=== PATIENT | female | born 1970 | race Caucasian/White ===

== ENCOUNTER → 2017-01-04 | Outpatient (CLI) | payer BC ==
[~2017-01-04] MED LIST: CLX20 PO; LISI-461 PO; PRLSR20 PO
[2017-01-04 16:47] LABS: COMPLETE YES; IG% 0.3 %; LYMPH ABS # 1.14 K/uL (1.2-3.4); MEAN CELL VOLUME 98.2 fL (80-100); MEAN CORPUSCULAR HEMOGLOBIN 32.5 pg (25-34); MEAN CORPUSCULAR HGB CONC 33.1 g/dl (32-36); MEAN PLATELET VOLUME 9.6 fL (7.4-10.4); NEUT % 51.7 %; PLATELET COUNT 128 K/uL (130-400); RED BLOOD COUNT 3.26 M/uL (4.2-5.4)
[2017-01-04 16:57] LABS: ALT/SGPT 22 U/L (12-78); AST/SGOT 13 U/L (15-37); BLOOD UREA NITROGEN 9 mg/dl (7-18); BUN/CREATININE RATIO 13.5 (10-20); CALCIUM 8.9 mg/dl (8.5-10.1); CARBON DIOXIDE 27 mmol/L (21-32); CHLORIDE 109 mmol/L (98-107); CREATININE 0.67 mg/dl (0.60-1.20); GLUCOSE 92 mg/dl (70-99); POTASSIUM 3.5 mmol/L (3.5-5.1); SODIUM 140 mmol/L (136-145)
[2017-01-04 17:07] LABS: ALB/GLOB RATIO 0.9 (0.9-2); ALKALINE PHOSPHATASE 66 U/L (45-117)
== END | disposition home or self-care (01) ==
LOC: C.LABBC 14:19
PROVIDERS: ATTEND Physician Assistant Medical
DX: R19.7 Diarrhea, unspecified (principal); R53.83 Other fatigue; M25.50 Pain in unspecified joint

== ENCOUNTER → 2017-01-04 | Outpatient (CLI) | payer BC ==
[2017-01-14 15:45] LABS: O&P SOURCE OTHER-STOOL
== END | disposition home or self-care (01) ==
LOC: C.LABBFT 13:18
PROVIDERS: ATTEND Physician Assistant Medical
DX: R19.7 Diarrhea, unspecified (principal)

== ENCOUNTER 2022-04-05 11:40 | Inpatient (IN) ==
[2022-04-05] MEDS ORDERED: SODIUM CHLORIDE 0.9% 1000ML 1,000 ML IV ONE (12:29)
--- NOTE | 2022-04-05 12:40 | Emergency Department Note ---
History of Present Illness General Chief Complaint: Illness Stated Complaint: BODY ACHES, BLOODY MUCUS, CONGESTED Time Seen by Provider: 04/05/22 12:19 History of Present Illness Provider Complaint: + cough Onset (ago): 2 day(s) Duration: + constant and + progressively worsening Severity: moderate Maximum Pain Intensity: 8 Current Pain Intensity: 8 Description of mucous: + bloody Able to tolerate fluids by mouth: Yes Context: + recent travel Associated symptoms: + fever (sujective), + chills, + myalgias and + other (Hemoptysis); no shortness of breath, no abdominal pain, no nausea, no vomiting, no diarrhea or no dysuria Home Medications Medication Instructions Recorded Confirmed Type Auto Titrating CPAP #1 ea 12/11/20 07/22/21 Rx lisinopril 10 mg tablet 10 mg PO QAM #90 tabs 03/18/21 04/05/22 Rx omeprazole 20 mg tablet,delayed 20 mg PO QAM #30 tabs 01/14/22 04/05/22 Rx release ascorbic acid (vitamin C) 100 mg 0 mg PO DAILY 04/05/22 04/05/22 History tablet cholecalciferol (vitamin D3) 25 0 mcg PO DAILY 04/05/22 04/05/22 History mcg (1,000 unit) tablet escitalopram oxalate 20 mg tablet 20 mg PO DAILY 04/05/22 04/05/22 History Allergies Allergy/AdvReac Type Severity Reaction Status Date / Time No Known Allergies Allergy NONE Verified 04/05/22 15:45 Past Med/Surg History Medical History Abnormal mammogram Abnormality of left breast on screening mammography LIS positive Anemia Anxiety Arthralgia of multiple sites BMI 45.0-49.9, adult Cervicalgia Cholecystectomy planned (01/19/13) Diarrhea Fatigue GERD (gastroesophageal reflux disease) GERD without esophagitis Headache, menstrual migraine Hypertension Kidney stones Migraine Moderate obstructive sleep apnea Myalgia and myositis Rheumatoid arthritis Sleep apnea does not use cpap as ordered Thrombocytopenia Vitamin B12 deficiency Surgical History History of cholecystectomy History of esophagogastroduodenoscopy (EGD) History of surgery (benign) fatty tissue removed under left arm History of tooth extraction wisdom teeth Family History Mother Father Stroke syndrome Stroke Aunt Breast cancer Colorectal cancer Grandmother (Maternal) Ovarian cancer Denies family history of Prostate cancer Diabetes Myocardial infarction Lung cancer Hypertension Social History Smoking Status: Never smoker Second Hand Exposure: Yes (both parents smoked); Hx Alcohol Use: Yes Alcohol type: wine and hard liquor Hx Substance Use: No Preferred Language: Citizen Of [place] Communication Ability: Effective Visual Impairment: No Limitations Hearing Ability: Normal Home Care And Home Health Aides Teacher Required: No Beliefs That Will Affect Care: None marital status: Current Living Situation: Alone and Other Current Living Situation Comment: friend lives with pt current occupational status: employed 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 Feels Safe at Home: Yes Childhood Exposure to Second-Hand Smoke: Yes caffeine: Yes Dental Care, Regularly: Yes Physical Activity Frequency: 3-4 Times per Week Seatbelt Use: sometimes Sunscreen Use: Yes Assistive Devices: Glasses Review of Systems A total of 10 systems reviewed and were otherwise negative Physical Exam Vital Signs: Vital Signs - 24 hr 04/05/22 11:42 04/05/22 12:59 04/05/22 12:59 Temperature 36.6 C Temperature Source Temporal Artery Sc an Pulse Rate 118 H Pulse Rate [Apical ] 101 H Pulse Rhythm Regular Pulse Strength Normal Respiratory Rate 20 18 Respiratory Effort / Characteristics Non-Labored Sponta neous Respiratory Depth Normal Normal Respiratory Patter n Regular Blood Pressure 131/69 Blood Pressure [Le ft Arm] 146/77 H Blood Pressure Debo n 89 Blood Pressure Debo n [Left Arm] 100 Blood Pressure Pos ition [Left Arm] Lying Pulse Oximetry 93 94 Oxygen Delivery Me thod Room Air Room Air Room Air Oxygen Flow Rate Sepsis Recent Feve r Within 48 Hours No Sepsis New/Unexpla ined Change in Men [place] Status N/A Sepsis Action Take n by Nursing No Action Required 04/05/22 14:00 04/05/22 14:56 Temperature Temperature Source Pulse Rate Pulse Rate [Apical ] 98 H Pulse Rhythm Pulse Strength Respiratory Rate 21 Respiratory Effort / Characteristics Respiratory Depth Respiratory Patter n Blood Pressure Blood Pressure [Le ft Arm] 154/90 H Blood Pressure Debo n Blood Pressure Debo n [Left Arm] 111 Blood Pressure Pos ition [Left Arm] Pulse Oximetry 87 L 97 Oxygen Delivery Me thod Room Air Nasal Cannula Oxygen Flow Rate 2 Sepsis Recent Feve r Within 48 Hours Sepsis New/Unexpla ined Change in Men [place] Status Sepsis Action Take n by Nursing Physical Exam: Physical Exam GENERAL: Patient having hemoptysis in the room. HENT: Exam performed. -Head: Normocephalic and atraumatic. -Right Ear: External ear normal. No mastoid tenderness. -Left Ear: External ear normal. No mastoid tenderness. -Mouth/Throat: The oropharynx is clear and moist. No trismus in the jaw. No dental abscesses or uvula swelling. No oropharyngeal exudate or tonsillar abscesses. EYES: Conjunctivae and EOM are normal. Pupils are equal, round, and reactive to light. Right eye exhibits no discharge. Left eye exhibits no discharge. No scleral icterus. NECK: Normal range of motion. Neck supple. No JVD present. No spinous process tenderness present. No carotid bruit present. No rigidity. No tracheal deviation and normal range of motion present. No Brudzinski's sign and no Kernig's sign noted. CV: Tachycardic rate, regular rhythm, normal heart sounds and intact distal pulses. There is no peripheral edema. Palpable radial pulses bue. PULM/CHEST: Rhonchi bilaterally -Chest Wall: She exhibits no tenderness. ABD: The abdomen is soft. Bowel sounds are normal. She has no distension. No mass is present. There is no tenderness. There is no rebound, no guarding, no Rivera's sign and no tenderness at McBurney's point. Rovsig negative MUSC/SKEL: Normal range of motion. There is no peripheral edema, tenderness or deformity. LYMPH: No cervical adenopathy. NEURO: She is alert and oriented to person, place, and time. She has normal strength. No cranial nerve deficit or sensory deficit. Coordination and gait normal. GCS eye subscore is 4. GCS verbal subscore is 5. GCS motor subscore is 6. Cerebellar tests wnl. SKIN: Skin is warm and dry. She is not diaphoretic. PSYCH: She has a normal mood and affect. Behavior is normal. Judgment and thought content normal. Course Course 1219: The patient was evaluated in room A2. A complete history and physical exam was performed Cardiac monitoring: An order was placed for continuous cardiac monitoring. The monitor shows a rate of 120 with sinus tachycardia rhythm 1400: Patient became hypoxic on room air 2 L supplemental oxygen saturation applied to the patient which improved her oxygen saturation. 1500: Vital signs stable. Labs show leukocytosis of 14. Chest x-ray shows left lower lobe infiltrate. Given this and the patient's hypoxia the patient be treated for pneumonia with azithromycin and Rocephin IV. CTs are pending. 1630: Vital signs stable on supplemental oxygen via nasal cannula. CTs show left-sided infiltrate. Patient be admitted to [facility] team Dr. Vasquez Administered Medications Discontinued Medications Sodium Chloride (Nss 1000ml) 1,000 mls @ 999 mls/hr IV .Q1H1M ONE Stop: 04/05/22 13:29 Last Infusion: 04/05/22 14:31 Dose: 0 mls/hr Documented By: Admin: 04/05/22 12:53 Dose: 999 mls/hr Documented By: PATRICE Azithromycin 500 mg/ Dextrose 255 mls @ 125 mls/hr IV ONE ONE Stop: 04/05/22 16:59 Last Infusion: 04/05/22 17:30 Dose: 0 mls/hr Documented By: Admin: 04/05/22 15:27 Dose: 125 mls/hr Documented By: ERROL Ceftriaxone Sodium (Rocephin) 1,000 mg in 50 mls @ 100 mls/hr IV NOW STA Stop: 04/05/22 15:26 Last Infusion: 04/05/22 15:54 Dose: 0 mls/hr Documented By: RSLaura Admin: 04/05/22 15:27 Dose: 100 mls/hr Documented By: ERROL Ioversol (Optiray 320 500ml) 109 ml IV ONCE ONE Stop: 04/05/22 14:01 Last Admin: 04/05/22 13:53 Dose: 109 ml Documented By: ELISHA Ondansetron HCl (Ondansetron Inj 2 Mg/Ml 2 Ml Vial) 4 mg IV NOW STA Stop: 04/05/22 15:42 Last Admin: 04/05/22 15:45 Dose: 4 mg Documented By: NAMRATA Medical Decision Making Laboratory Data Result diagrams: 04/05/22 12:50 04/05/22 12:50 Lab Results 04/05/22 04/05/22 04/05/22 Range/Units 11:45 12:50 12:50 WBC 14.46 H (4.8-10.8) K/ul RBC 2.96 L (3.93-5.22) M/uL Hgb 9.1 L (12.0-16.0) g/dl Hct 27.9 L (34.1-44.9) % MCV 94.3 (80.0-100.0) fL MCH 30.7 (25.0-34.0) pg MCHC 32.6 (32.0-36.0) g/dL RDW Std Deviation 57.0 H (36.4-46.3) fL RDW Coeff of Kota 16.4 H (11.5-14.5) % Plt Count 70 L (130-400) K/uL MPV 10.1 (9.4-12.3) fL Immature Gran % (Auto) 5.6 % Neut % (Auto) 55.5 % Lymph % (Auto) 9.8 % Tw[place]gs % (Auto) 28.6 % Eos % (Auto) 0.1 % Baso % (Auto) 0.4 % Neut # (Auto) 8.03 H (1.4-6.5) K/uL Lymph # (Auto) 1.41 (1.2-3.4) K/uL [place]gs # (Auto) 4.13 H (0.24-0.82) K/uL Eos # (Auto) 0.02 (0-0.50) K/uL Baso # (Auto) 0.06 (0-0.2) K/uL Immature Gran # (Auto) 0.81 H (0.00-0.02) K/uL Absolute Nucleated RBC 0.06 H (0-0) K/uL Nucleated RBC % (auto) 0.4 % Polychromasia 1+ Tear Drop Cells 1+ PT 12.0 (9.0-12.0) Seconds INR 1.1 (0.9-1.1) APTT 34.5 H (21.0-31.0) Seconds PTT Ratio 1.3 Sodium (136-145) mmol/L Potassium (3.5-5.1) mmol/L Chloride (98-107) mmol/L Carbon Dioxide (21-32) mmol/L Anion Gap (3-11) BUN (6-23) mg/dl Creatinine (0.6-1.2) mg/dl Est Cr Clr Drug Dosing ml/min Est GFR ( Amer) ml/min Est GFR (Non-Af Amer) ml/min BUN/Creatinine Ratio (10-20) Glucose (70-99(Fasting)) mg/dl Calcium (8.5-10.1) mg/dl Total Bilirubin (0.2-1.0) mg/dl Direct Bilirubin (0-0.2) mg/dl AST (13-39) U/L ALT (7-52) U/L Alkaline Phosphatase (34-104) U/L Total Protein (6.0-8.3) gm/dl Albumin (3.4-5.0) gm/dl Lipase (11-82) U/L SARS-CoV-2 (PCR) NEGATIVE (Negative) Influenza Type A (PCR) Negative (Neg) Influenza Type B (PCR) Negative (Neg) RSV (RT-PCR) Negative (Neg) 04/05/22 Range/Units 12:50 WBC (4.8-10.8) K/ul RBC (3.93-5.22) M/uL Hgb (12.0-16.0) g/dl Hct (34.1-44.9) % MCV (80.0-100.0) fL MCH (25.0-34.0) pg MCHC (32.0-36.0) g/dL RDW Std Deviation (36.4-46.3) fL RDW Coeff of Kota (11.5-14.5) % Plt Count (130-400) K/uL MPV (9.4-12.3) fL Immature Gran % (Auto) % Neut % (Auto) % Lymph % (Auto) % Tw[place]gs % (Auto) % Eos % (Auto) % Baso % (Auto) % Neut # (Auto) (1.4-6.5) K/uL Lymph # (Auto) (1.2-3.4) K/uL [place]gs # (Auto) (0.24-0.82) K/uL Eos # (Auto) (0-0.50) K/uL Baso # (Auto) (0-0.2) K/uL Immature Gran # (Auto) (0.00-0.02) K/uL Absolute Nucleated RBC (0-0) K/uL Nucleated RBC % (auto) % Polychromasia Tear Drop Cells PT (9.0-12.0) Seconds INR (0.9-1.1) APTT (21.0-31.0) Seconds PTT Ratio Sodium 135 L (136-145) mmol/L Potassium 3.5 (3.5-5.1) mmol/L Chloride 100 (98-107) mmol/L Carbon Dioxide 27 (21-32) mmol/L Anion Gap 8 (3-11) BUN 10 (6-23) mg/dl Creatinine 0.64 (0.6-1.2) mg/dl Est Cr Clr Drug Dosing 132.4 ml/min Est GFR ( Amer) 118.9 ml/min Est GFR (Non-Af Amer) 102.6 ml/min BUN/Creatinine Ratio 15.6 (10-20) Glucose 128 H (70-99(Fasting)) mg/dl Calcium 9.5 (8.5-10.1) mg/dl Total Bilirubin 0.9 (0.2-1.0) mg/dl Direct Bilirubin 0.2 (0-0.2) mg/dl AST 23 (13-39) U/L ALT 26 (7-52) U/L Alkaline Phosphatase 74 (34-104) U/L Total Protein 8.1 (6.0-8.3) gm/dl Albumin 4.1 (3.4-5.0) gm/dl Lipase 16 (11-82) U/L SARS-CoV-2 (PCR) (Negative) Influenza Type A (PCR) (Neg) Influenza Type B (PCR) (Neg) RSV (RT-PCR) (Neg) Imaging Data Radiologist's Impression: Chest CTA 04/05/22 12:30 CT angio chest PE protocol CT DOSE: 2544.09 mGy.cm HISTORY: 52 years-old Female with hemoptysis recent travel ro PE. Acute shortness of breath with recent travel TECHNIQUE: Multiple CTA images of the chest were obtained after the intravenous administration of 109 ml Optiray. Coronal and sagittal MIPS were obtained from the axial data set and were submitted for review. All measurements were obtained according to NASCET criteria. A dose lowering technique was utilized adhering to the principles of ALARA. COMPARISON: CT abdomen and pelvis of same day FINDINGS: CTA: The heart is upper limits of normal in size. No pericardial effusion. Unremarkable thoracic aorta. The segmental and subsegmental pulmonary tree all branches are not well evaluated secondary to contrast bolus timing and respiratory motion artifact. No central pulmonary emboli are identified. CT CHEST: 1.1 cm hypodense left-sided thyroid nodule. 1.1 cm AP window lymph node. Mildly enlarged paratracheal, subcarinal and hilar lymph nodes measure up to 1.0 cm. No pneumothorax, pleural effusion or overt pulmonary edema. Dense airspace consolidation of the basal left lower lobe with air bronchograms. Additional patchy consolidative opacities in the superior segment left lower lobe. 4 mm fi ssural nodule of the lingula on image 116 is likely benign. Subsegmental right basilar atelectasis. Central airways appear patent. Hepatosplenomegaly. No acute process of the imaged upper abdomen. Hepatic steatosis. Unremarkable soft tissues. No acute fracture. IMPRESSION: 1. No central pulmonary emboli identified. 2. Airspace opacities within the left lower lobe are suggestive of pneumonia. 3. Mild mediastinal and hilar lymphadenopathy, likely reactive. 4. Please refer to the CT abdomen and pelvis study of same day for additional findings. ACT 112: Negative or not required by law. The above report was generated using voice recognition software. It may contain grammatical, syntax or spelling errors. Electronically signed by: Delmer Arnold M.D. 04/05/2022 3:00 PM Chest X-Ray 04/05/22 12:30 XR chest 1V portable CLINICAL HISTORY: Cough. Hemoptysis. COMPARISON STUDY: Chest radiograph September 17, 2014. FINDINGS: No pneumothorax or pleural effusion is present. There is no evidence for pulmonary edema. Cardiomediastinal silhouette is stable. There is suspected left lower lobe airspace opacity. IMPRESSION: Suspected left lower lobe airspace opacity. This may reflect pneumonia or atelectasis. Radiographic follow-up to ensure resolution is recommended. ACT 112: Negative or not required by law. Electronically signed by: Haldey Salcido M.D. 04/05/2022 1:50 PM Abdomen/Pelvis CT 04/05/22 13:[address] WITH IV CONTRAST CT DOSE: HISTORY: nausea fever TECHNIQUE: Multiaxial CT images of the abdomen and pelvis were performed following the use of intravenous contrast. A dose lowering technique was utilized adhering to the principles of ALARA. COMPARISON STUDY: Abdomen and pelvis CT 06/11/2021. FINDINGS: Left lower lobe consolidation with air bronchograms. This likely represents a pneumonia. There is a 3 mm subpleural nodule within the left upper lobe on image 21. No pneumoperitoneum. No pneumatosis. No fractures within the visualized osseous structures. Cholecystectomy. Hepatic steatosis. The 2.1 cm hypodense lesion within the caudate lobe, unchanged. There are few additional scattered hypodense lesions which are also stable. These favor cysts. The main portal vein is patent. Normal pancreas and adrenal glands. The kidneys enhance normally. No hydronephrosis. The bladder is decompressed. The spleen is mildly enlarged measuring 15 cm in length. No retroperitoneal lymphadenopathy. Normal caliber abdominal aorta. No pelvic free fluid. The bladder is decompressed. Lobular appearance to the uterine fundus, unchanged. This is consistent with small fibroids. No bowel wall thickening or obstruction. Submucosal fat deposition within the proximal colon, unchanged. Normal appendix. Subtle 2 cm hypodense lesion within the spleen on image 144. This is indeterminate but statistically represents a benign lesion. This was likely present on the prior studies. IMPRESSION: 1. Left lower lobe consolidation likely representing a pneumonia. This is better appreciated on the same day chest CT. 2. No bowel wall thickening or obstruction. 3. Normal appendix. 4. Cholecystectomy. 5. Hepatic steatosis. 6. Splenomegaly measuring 15 cm in length. ACT 112: Negative or not required by law. Electronically signed by: Billy Paige M.D. 04/05/2022 3:05 PM ECG Data Indication: SOB/dyspnea Rate (beats per minute): 104 Rhythm: normal sinus Findings: no ST depression, no ST elevation or no prolonged QT MDM Narrative 1219: The patient was evaluated in room A2. A complete history and physical exam was performed Cardiac monitoring: An order was placed for continuous cardiac monitoring. The monitor shows a rate of 120 with sinus tachycardia rhythm 1400: Patient became hypoxic on room air 2 L supplemental oxygen saturation applied to the patient which improved her oxygen saturation. 1500: Vital signs stable. Labs show leukocytosis of 14. Chest x-ray shows left lower lobe infiltrate. Given this and the patient's hypoxia the patient be treated for pneumonia with azithromycin and Rocephin IV. CTs are pending. 1630: Vital signs stable on supplemental oxygen via nasal cannula. CTs show left-sided infiltrate. Patient be admitted to the [facility]ist team Dr. Vasquez Impression & Plan Hypoxia, Pneumonia Critical Care Time Critical Care Time: Yes Total Critical Care Time: 52 I have personally spent greater than 52 minutes of critical care time in the direct management of this patient. This includes bedside care, interpretation of diagnostic studies, and testing, discussion with consultants, patient, and family members, and other required patient management activities. This 52 minut es is in excess of all separately billable procedures. Discharge Plan Visit Data Chief Complaint: Illness Stated Complaint: BODY ACHES, BLOODY MUCUS, CONGESTED ED Provider: Johnny Nash Discharge Problem: Hypoxia, Pneumonia Patient Disposition: Admitted As Inpatient Discharge Instructions Interventions: ED Discharge Assessment Last Done: 04/05/22 17:31
[2022-04-05 12:50] LABS: Influenza A virus by PCR Negative (Neg); Influenza B virus by PCR Negative (Neg); RSV by PCR Negative (Neg); SARS CoV2 RNA(COVID-19) Ceph NEGATIVE (Negative)
[2022-04-05 13:15] LABS: Hematocrit (blood only) 27.9 % (34.1-44.9); Hemoglobin 9.1 g/dl (12.0-16.0); Mean Corpuscular Hemoglobin 30.7 pg (25.0-34.0); Mean Corpuscular Hgb Conc 32.6 g/dL (32.0-36.0); Mean Corpuscular Volume 94.3 fL (80.0-100.0); Mean Platelet Volume 10.1 fL (9.4-12.3); Nucleated RBC # (auto) 0.06 K/uL (0-0); Nucleated RBC % (auto) 0.4 %; Platelet Count 70 K/uL (130-400); RDW Coefficient of Variation 16.4 % (11.5-14.5); Red Blood Count 2.96 M/uL (3.93-5.22); White Blood Count 14.46 K/ul (4.8-10.8)
[2022-04-05 13:28] LABS: INR 1.1 (0.9-1.1); Partial Thromboplastin Ratio 1.3; Partial Thromboplastin Time 34.5 Seconds (21.0-31.0)
[2022-04-05 13:35] LABS: Basophils # (auto) 0.06 K/uL (0-0.2); Basophils % (auto) 0.4 %; Eosinophils # (auto) 0.02 K/uL (0-0.50); Eosinophils % (auto) 0.1 %; Immature Granulocytes # (auto) 0.81 K/uL (0.00-0.02); Immature Granulocytes % (auto) 5.6 %; Lymphocytes # (auto) 1.41 K/uL (1.2-3.4); Lymphocytes % (auto) 9.8 %; Monocytes # (auto) 4.13 K/uL (0.24-0.82); Monocytes % (auto) 28.6 %; Neutrophils # (auto) 8.03 K/uL (1.4-6.5); Neutrophils % (auto) 55.5 %; Polychromasia 1+; Tear Drop Cells 1+
[2022-04-05 13:37] LABS: Albumin Level 4.1 gm/dl (3.4-5.0); BUN Creatinine Ratio 15.6 (10-20); Bilirubin Direct 0.2 mg/dl (0-0.2); Bilirubin,Total 0.9 mg/dl (0.2-1.0); Calcium 9.5 mg/dl (8.5-10.1); Creatinine Clr Calc Pharmacy 132.4 ml/min; Est GFR (African American) 118.9 ml/min; Est GFR (Non-African American) 102.6 ml/min; Potassium 3.5 mmol/L (3.5-5.1); Total Protein 8.1 gm/dl (6.0-8.3)
--- NOTE | 2022-04-05 13:51 | XRay Report ---
XR chest 1V portable CLINICAL HISTORY: Cough. Hemoptysis. COMPARISON STUDY: Chest radiograph September 17, 2014. FINDINGS: No pneumothorax or pleural effusion is present. There is no evidence for pulmonary edema. C ardiomediastinal silhouette is stable. There is suspected left lower lobe airspace opacity. IMPRESSION: Suspected left lower lobe airspace opacity. This may reflect pneumonia or atelectasis. R adiographic follow-up to ensure resolution is recommended. ACT 112: Negative or not required by law. Electronically signed by: Hadley Salcido M.D. 04/05/2022 1:50 PM
[2022-04-05] MEDS ORDERED: OPTIRAY 320 500ml IV ONE (14:00)
--- NOTE | 2022-04-05 14:15 | Electrocardiogram Report ---
Test Reason : Blood Pressure : / mmHG Vent. Rate : 104 BPM Atrial Rate : 104 BPM P-R Int : 160 ms QRS Dur : 092 ms QT Int : 348 ms P-R-T Axes : 049 018 063 degrees QTc Int : 457 ms Poor data quality, interpretation may be adversely affected Sinus tachycardia Poor R wave progression, consider anterior VA vs. lead placement vs. LVH Abnormal ECG No previous ECGs available Confirmed by Rod Felipe ([id number]) on 04/05/2022 2:15:00 PM Referred By: REFERRED SELF Confirmed By:Steve Felipe
[2022-04-05] MEDS ORDERED: cefTRIAXone SODIUM 1,000 MG/50 ML BAG IV STA (14:57)
[2022-04-05] MEDS ORDERED: AZITHROMYCIN 500 MG in DEXTROSE 5% 250 ML IV ONE (14:57)
--- NOTE | 2022-04-05 15:01 | CT Scan Report ---
CT angio chest PE protocol CT DOSE: 2544.09 mGy.cm HISTORY: 52 years-old Female with hemoptysis recent travel ro PE. Acute shortness of breath with re cent travel TECHNIQUE: Multiple CTA images of the chest were obtained after the intravenous administration of 109 ml Optiray. Coronal and sagittal MIPS were obtained from the axial data set and were submitted for review. All measurements were obtained according to NASCET criteria. A dose lowering technique was u tilized adhering to the principles of ALARA. COMPARISON: CT abdomen and pelvis of same day FINDINGS: CTA: The heart is upper limits of normal in size. No pericardial effusion. Unremarkable thoracic aorta. Th e segmental and subsegmental pulmonary tree all branches are not well evaluated secondary to contrast bolus timing and respiratory motion artifact. No central pulmonary emboli are identified. CT CHEST: 1.1 cm hypodense left-sided thyroid nodule. 1.1 cm AP window lymph node. Mildly enlarged paratracheal , subcarinal and hilar lymph nodes measure up to 1.0 cm. No pneumothorax, pleural effusion or overt pulmonary edema. Dense airspace consolidation of the basal left lower lobe with air bronchograms. Additional patchy consolidative opacities in the superior seg ment left lower lobe. 4 mm fissural nodule of the lingula on image 116 is likely benign. Subsegmental right basilar atelectasis. Central airways appear patent. Hepatosplenomegaly. No acute process of the imaged upper abdomen. Hepatic steatosis. Unremarkable sof t tissues. No acute fracture. IMPRESSION: 1. No central pulmonary emboli identified. 2. Airspace opacities within the left lower lobe are suggestive of pneumonia. 3. Mild mediastinal and hilar lymphadenopathy, likely reactive. 4. Please refer to the CT abdomen and pelvis study of same day for additional findings. ACT 112: Negative or not required by law. The above report was generated using voice recognition software. It may contain grammatical, syntax o r spelling errors. Electronically signed by: Delmer Arnold M.D. 04/05/2022 3:00 PM
--- NOTE | 2022-04-05 15:08 | CT Scan Report ---
ABDOMEN AND PELVIS CT WITH IV CONTRAST CT DOSE: HISTORY: nausea fever TECHNIQUE: Multiaxial CT images of the abdomen and pelvis were performed following the use of intrave nous contrast. A dose lowering technique was utilized adhering to the principles of ALARA. COMPARISON STUDY: Abdomen and pelvis CT 06/11/2021. FINDINGS: Left lower lobe consolidation with air bronchograms. This likely represents a pneumonia. Th ere is a 3 mm subpleural nodule within the left upper lobe on image 21. No pneumoperitoneum. No pneum atosis. No fractures within the visualized osseous structures. Cholecystectomy. Hepatic steatosis. Th e 2.1 cm hypodense lesion within the caudate lobe, unchanged. There are few additional scattered hypo dense lesions which are also stable. These favor cysts. The main portal vein is patent. Normal pancre as and adrenal glands. The kidneys enhance normally. No hydronephrosis. The bladder is decompressed. The spleen is mildly enlarged measuring 15 cm in length. No retroperitoneal lymphadenopathy. Normal c aliber abdominal aorta. No pelvic free fluid. The bladder is decompressed. Lobular appearance to the uterine fundus, unchanged. This is consistent with small fibroids. No bowel wall thickening or obstru ction. Submucosal fat deposition within the proximal colon, unchanged. Normal appendix. Subtle 2 cm h ypodense lesion within the spleen on image 144. This is indeterminate but statistically represents a benign lesion. This was likely present on the prior studies. IMPRESSION: 1. Left lower lobe consolidation likely representing a pneumonia. This is better appreciated on the chest CT. 2. No bowel wall thickening or obstruction. 3. Normal appendix. 4. Cholecystectomy. 5. Hepatic steatosis. 6. Splenomegaly measuring 15 cm in length. ACT 112: Negative or not required by law. Electronically signed by: Billy Paige M.D. 04/05/2022 3:05 PM
[2022-04-05] MEDS ORDERED: ONDANSETRON INJ 2 MG/ML 2 ML VIAL IV STA (15:41)
--- NOTE | 2022-04-05 15:53 | History & Physical Report ---
Date of Service April 05, 2022 Assessment & Plan (1) CAP (community acquired pneumonia): Plan: 52-year-old female with history of myelodysplastic syndrome who presents with several days of fever, aches, and cough who after 2 days of aggressive coughing had an episode of hemoptysis. Found to have lobar pneumonia on x-ray. CAP CTA- No pulmonary emboli. Left lower lobe opacities consistent with lobar pneumonia. Lymphadenopathy likely reactive. With leukocytosis, fevers, chills approximately 4 days COVID/flu/RSV negative Initially treated with azithromycin/Rocephin We will continue treatment with Rocephin for Lobar pneumonia Patient with a history of MDS as below, is not currently neutropenic and has not needed Neupogen in the past Sputum pending Breathing on 2 L nasal cannula, adequate oxygen saturations. Guaifenesin with codeine as needed Myelodysplasia With 3 prior bone marrow biopsies last in 2020 Hemoglobin adequate at admission, 9.2. No indication for transfusion at this time Trend hemoglobin Platelets 70 K, no indication for transfusion at this time Patient is not neutropenic. WBC 14 on admission GERD Continue PPI Hypertension Continue lisinopril Anxiety/depression Continue Lexapro DVT prophylaxis: SCDs Diet: Regular Disposition: Medical/surgical CODE STATUS: Full code (2) Severe obstructive sleep apnea: (3) Myelodysplasia (myelodysplastic syndrome): (4) GERD without esophagitis: History of Present Illness Primary Care Provider: Jimmy Medina MD Karen is a 52-year-old female with a past medical history of hypertension, hyperglycemia, migraines, anemia, kidney stones, GERD, sleep apnea who presents with 3 days of persistent cough and sore throat and an episode of bloody mucus production/hemoptysis not on blood thinner 4 days of cough and body aches. Started coughing up bloody mucous yesterdah evening and this morning. Sputum thick and redditsh. Still having fevers, chills, and body aches. Aches seem to be the worst, eyes hurt in the back and had a headache worsened by cough. Arms and legs 'ache and are just miserable.' Haven't felt like this since the flu 10 years ago. 1x nausea after abx, otherwise denies nausea, vomiting, diarrhea, or constipation. No abdominal pain Endorses hx of HTN, GERD, and recently dx with myelodysplastic syndrome with pancytopenia dx by Dr. Hyman. Pending followup with [facility] and has had low counts for years which dropped suddenly. 3x bone marrow biopsys stable with no leukemia at last biopsy Mar 2021. Takes an injection every 2 weeks for hgb, denies injections for WBC boosting. Has not needed a blood transfusion before. Endorses NIKHIL. Denies COPD No hx of bleeding/clotting problems. No heart attacks. No fhx of bleeding/heart attacks/CVA. Mother did have lymphoma NHL. Medical History: Reviewed Medications: Reviewed Surgical History: Reviewed Allergies: Reviewed Social History: No tobacco or alcohol use. Code Status: Surrogate decision maker in an emergency would be Leticia her sister. Full Code. Allergies Allergy/AdvReac Type Severity Reaction Status Date / Time No Known Allergies Allergy NONE Verified 04/05/22 15:45 Home Medications Medication Instructions Recorded Confirmed Type Auto Titrating CPAP #1 ea 12/11/20 07/22/21 Rx lisinopril 10 mg tablet 10 mg PO QAM #90 tabs 03/18/21 04/05/22 Rx omeprazole 20 mg tablet,delayed 20 mg PO QAM #30 tabs 01/14/22 04/05/22 Rx release ascorbic acid (vitamin C) 100 mg 0 mg PO DAILY 04/05/22 04/05/22 History tablet cholecalciferol (vitamin D3) 25 0 mcg PO DAILY 04/05/22 04/05/22 History mcg (1,000 unit) tablet escitalopram oxalate 20 mg tablet 20 mg PO DAILY 04/05/22 04/05/22 History Past Med/Surg History Medical History Abnormal mammogram Abnormality of left breast on screening mammography LIS positive Anemia Anxiety Arthralgia of multiple sites BMI 45.0-49.9, adult Cervicalgia Cholecystectomy planned (01/19/13) Diarrhea Fatigue GERD (gastroesophageal reflux disease) GERD without esophagitis Headache, menstrual migraine Hypertension Kidney stones Migraine Moderate obstructive sleep apnea Myalgia and myositis Rheumatoid arthritis Sleep apnea does not use cpap as ordered Thrombocytopenia Vitamin B12 deficiency Surgical History History of cholecystectomy History of esophagogastroduodenoscopy (EGD) History of surgery (benign) fatty tissue removed under left arm History of tooth extraction wisdom teeth Family History Mother Father Stroke syndrome Stroke Aunt Breast cancer Colorectal cancer Grandmother (Maternal) Ovarian cancer Denies family history of Prostate cancer Diabetes Myocardial infarction Lung cancer Hypertension Social History Smoking Status: Never smoker Second Hand Exposure: Yes (both parents smoked); Hx Alcohol Use: Yes Alcohol type: wine and hard liquor Hx Substance Use: No Preferred Language: [place] Communication Ability: Effective Visual Impairment: No Limitations Hearing Ability: Normal Range Ecologist Required: No Beliefs That Will Affect Care: None marital status: Current Living Situation: Alone and Other Current Living Situation Comment: friend lives with pt current occupational status: employed 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 NAD. Cooperative. HEENT: Atraumatic, normocephalic. Pulm: Coarse, no wheezes. No rales. Cardiac: Regular, tachycardic, -mrg. Radial pulses intact and symmetrical. Abdominal: Nontender, nondistended, soft. BS present. Extremities: Moves all extremities equally. Warm and dry. Results & Data Results & Data ([facility]) Vital Signs (Past 12 Hours) Vital Signs Temp Pulse Pulse Resp BP BP Pulse Ox 04/05/22 14:56 97 04/05/22 14:00 98 H 21 154/90 H 87 L 04/05/22 12:59 101 H 18 146/77 H 94 04/05/22 12:59 93 04/05/22 11:42 36.6 C 118 H 20 131/69 O2 Del Method O2 Flow Rate 04/05/22 14:56 Nasal Cannula 2 04/05/22 14:00 Room Air 04/05/22 12:59 Room Air 04/05/22 12:59 Room Air 04/05/22 11:42 Room Air PG Care Time/CCT Total # of Minutes Spent Total Time Spent with Patient: Total time spent is greater than 50% in coordination of care (as documented) at patient's floor/unit and/or counseling patient: Coding Level of Care Code 40264 Initial Inpt Care Lvl 2 Diagnoses CAP (community acquired pneumonia) J18.9 Severe obstructive sleep apnea G47.33 Myelodysplasia (myelodysplastic syndrome) D46.9 GERD without esophagitis K21.9
[2022-04-05] MEDS ORDERED: POLYETHYLENE (MIRALAX) 17 GM PACK PO PRN (17:32)
[2022-04-05] MEDS ORDERED: ONDANSETRON INJ 2 MG/ML 2 ML VIAL IV PRN (17:32)
[2022-04-05] MEDS: ACETAMINOPHEN 325 MG TAB PO PRN (21:22)
[2022-04-06 07:15] LABS: Hematocrit (blood only) 26.2 % (34.1-44.9); Hemoglobin 8.2 g/dl (12.0-16.0); Mean Corpuscular Hemoglobin 30.7 pg (25.0-34.0); Mean Corpuscular Hgb Conc 31.3 g/dL (32.0-36.0); Mean Corpuscular Volume 98.1 fL (80.0-100.0); Mean Platelet Volume 12.2 fL (9.4-12.3); Nucleated RBC # (auto) 0.05 K/uL (0-0); Nucleated RBC % (auto) 0.6 %; Platelet Count 65 K/uL (130-400); RDW Coefficient of Variation 16.5 % (11.5-14.5); RDW Standard Deviation 58.4 fL (36.4-46.3); Red Blood Count 2.67 M/uL (3.93-5.22); White Blood Count 8.97 K/ul (4.8-10.8)
[2022-04-06 07:38] LABS: Basophils # (auto) 0.04 K/uL (0-0.2); Basophils % (auto) 0.4 %; Immature Granulocytes # (auto) 0.63 K/uL (0.00-0.02); Lymphocytes # (auto) 1.43 K/uL (1.2-3.4); Lymphocytes % (auto) 15.9 %; Monocytes # (auto) 1.67 K/uL (0.24-0.82); Monocytes % (auto) 18.6 %; Neutrophils % (auto) 58.1 %; Polychromasia 1+; Tear Drop Cells 1+
[2022-04-06 07:39] LABS: BUN Creatinine Ratio 20.7 (10-20); Calcium 9.2 mg/dl (8.5-10.1); Creatinine Clr Calc Pharmacy 145.8 ml/min; Est GFR (African American) 122.8 ml/min; Potassium 3.8 mmol/L (3.5-5.1)
[2022-04-06] MEDS: lisinopril 10 MG TAB PO SCH (07:53)
[2022-04-06] MEDS: ESCITALOPRAM OXALATE 20 MG TAB PO SCH (07:53)
[2022-04-06] MEDS: PANTOprazole 40 MG TAB PO SCH (07:54)
[2022-04-06] MEDS: ACETAMINOPHEN 325 MG TAB PO PRN ×2 (08:08→14:34)
[2022-04-06] MEDS: AMPICILLIN/SULBACTAM SOD 3,000 MG in 0.9 % SODIUM CHLORIDE 100 ML IV SCH ×3 (08:45→20:27)
[2022-04-06] MEDS: AZITHROMYCIN 250 MG TAB PO SCH (08:46)
[2022-04-06] MEDS ORDERED: cefTRIAXone SODIUM 2,000 MG in DEXTROSE 5% 50 ML IV SCH (09:00)
--- NOTE | 2022-04-06 17:36 | Hospitalist Progress Note ---
Date of Service April 06, 2022 Assessment & Plan (1) CAP (community acquired pneumonia): Plan: 52-year-old female with history of myelodysplastic syndrome who presents with several days of fever, aches, and cough who after 2 days of aggressive coughing had an episode of hemoptysis. Found to have lobar pneumonia on x-ray. CTA- No pulmonary emboli. Left lower lobe opacities consistent with lobar pneumonia. Lymphadenopathy likely reactive. With leukocytosis, fevers, chills approximately 4 days COVID/flu/RSV negative Initially treated with azithromycin/Rocephin Treatment switched to Unasyn/azithromycin with plan to switch to Augmentin for full treatment course on discharge Sputum pending collection Incentive spirometer and flutter valve, 2 step in AM as can likely be discharged tomorrow with or without oxygen (2) Hypoxia: Plan: Aim O2 sats > 90% 2 step in AM to see if she requires oxygen on discharge (3) Severe obstructive sleep apnea: Plan: CPAP HS - either patient to use her own or hospital one ordered (4) Myelodysplasia (myelodysplastic syndrome): Plan: Discussed with Dr Hyman and recommended giving her usual Procrit injection while she is here. Increase her usual dose to 60,000 units due to Hgb 8.2 on AM labs. (5) GERD without esophagitis: Plan: Continue pantoprazole 40mg PO daily (6) Anxiety: Plan: Continue Lexapro (7) Hypertension: Plan: Continue lisinopril Plan DVT prophylaxis: SCDs Diet: Regular Disposition: Medical/surgical CODE STATUS: Full code Admission and Anticipated Discharge Date Admission Date: April 05, 2022 Subjective Reports feeling much improved since admission. Still having a lot of coughing, hemoptysis resolved. No problems with choking or coughing after eating. Patient seen after coming out from the bathroom without oxygen on at O2 sats were initially around 82% but rebounded to 88%. No incentive spirometer in room. No fever, chills. Did not have her usual CPAP last night. Review of Systems Review of Systems: All systems reviewed & are unremarkable except as noted in Subjective Physical Exam Constitutional: WD/WN, vitals as above Respiratory: normal respiratory effort; no respiratory distress Auscultation: + crackles (left base); breath sounds present, no diminished lung sounds, no rales, no rhonchi and no wheezes Cardiovascular: RRR, no murmur, no edema Gastrointestinal (Abdomen): normal bowel sounds, soft, nontender, no hepatosplenomegaly Musculoskeletal: no cyanosis or clubbing, extremities motor strength 5/5 Skin: no rashes, warm and dry Neurologic: moves all extremities and awake; not confused Psychiatric: A+Ox3, euthymic affect Results & Data Results & Data ([facility]) Vital Signs (Past 12 Hours) Vital Signs Temp Pulse Resp BP Pulse Ox O2 Del Method O2 Flow Rate 04/06/22 15:50 36.6 C 90 16 103/67 93 Nasal Cannula 1 04/06/22 07:30 Room Air 04/06/22 08:16 36.4 C L 84 16 123/77 93 Nasal Cannula 1 PG Care Time/CCT Total # of Minutes Spent Total Time Spent with Patient: Total time spent is greater than 50% in coordination of care (as documented) at patient's floor/unit and/or counseling patient: Coding Level of Care Code 66733 Subseq Hosp Care Lvl 2 Diagnoses CAP (community acquired pneumonia) J18.9 Hypoxia R09.02 Severe obstructive sleep apnea G47.33 Myelodysplasia (myelodysplastic syndrome) D46.9 GERD without esophagitis K21.9 Anxiety F41.9 Hypertension I10
[2022-04-06] MEDS ORDERED: EPOETIN ALFA 20,000 UNITS/ML VIAL SQ ONE (20:00)
[2022-04-07] MEDS: AMPICILLIN/SULBACTAM SOD 3,000 MG in 0.9 % SODIUM CHLORIDE 100 ML IV SCH ×3 (02:00→14:54)
[2022-04-07 07:36] LABS: Hematocrit (blood only) 26.1 % (34.1-44.9); Hemoglobin 8.2 g/dl (12.0-16.0); Mean Corpuscular Hemoglobin 30.4 pg (25.0-34.0); Mean Corpuscular Hgb Conc 31.4 g/dL (32.0-36.0); Mean Corpuscular Volume 96.7 fL (80.0-100.0); Mean Platelet Volume 11.6 fL (9.4-12.3); Nucleated RBC # (auto) 0.03 K/uL (0-0); Nucleated RBC % (auto) 0.5 %; Platelet Count 64 K/uL (130-400); RDW Coefficient of Variation 16.2 % (11.5-14.5); RDW Standard Deviation 57.6 fL (36.4-46.3); White Blood Count 5.94 K/ul (4.8-10.8)
[2022-04-07 07:51] LABS: Calcium 8.9 mg/dl (8.5-10.1); Creatinine Clr Calc Pharmacy 169.2 ml/min; Est GFR (Non-African American) 111.3 ml/min; Potassium 3.3 mmol/L (3.5-5.1)
[2022-04-07 08:01] LABS: Lymphocytes # (manual) 1.31 K/uL (1.2-3.4); Lymphocytes % (manual) 22 %; Metamyelocytes # (manual) 0.24 K/uL (0-0); Metamyelocytes % (manual) 4 %; Monocytes # (manual) 0.77 K/uL (0.24-0.82); Monocytes % (manual) 13 %; Myelocytes # (manual) 0.18 K/uL (0-0); Myelocytes % (manual) 3 %; Neutrophils # (manual) 3.45 K/uL (1.4-6.5); Neutrophils % (manual) 58 %; Tear Drop Cells 1+
[2022-04-07] MEDS: ESCITALOPRAM OXALATE 20 MG TAB PO SCH (09:44)
[2022-04-07] MEDS: AZITHROMYCIN 250 MG TAB PO SCH (09:44)
[2022-04-07] MEDS: lisinopril 10 MG TAB PO SCH (09:45)
[2022-04-07] MEDS: PANTOprazole 40 MG TAB PO SCH (09:45)
[2022-04-07] MEDS ORDERED: POTASSIUM CHLORIDE CRTAB 20 MEQ TABCR PO STA (15:36)
== END 2022-04-07 16:23 | disposition home or self-care (01) | DRG 194 ==
LOC: ED 11:40 → EDINP 16:30 → SUATTDRO 16:30 → 3N 21:06

== ENCOUNTER 2024-12-02 14:41 | Inpatient (IN) ==
[2024-12-02] MEDS ORDERED: SODIUM CHLORIDE 0.9% 100 ML IV PRN ×3 (15:15→21:18)
--- NOTE | 2024-12-02 15:39 | Emergency Department Note ---
Impression & Plan Myelodysplasia (myelodysplastic syndrome), Pancytopenia, Symptomatic anemia, Upper respiratory infection, viral ED Provider Note NAME: VIKAS BRITO AGE: 54 SEX: F : 1970 ARRIVES VIA: Walk-In INFORMANT: Patient, friend ED PROVIDER(S): Francisco Viveros DO CHIEF COMPLAINT: low blood counts HPI: This is a 54-year-old female with the PMHx of HTN, NIKHIL, GERD and MDS presenting to [facility] for further evaluation of Abnormal outpatient labs. Patient is accompanied by her friend who provide additional history. patient states that she has been dealing with myelodysplastic syndrome for the last 10 years. Patient follows up with hematology as an outpatient. Patient states that she did require transfusion for the first time earlier this month. Patient states she went to [place] to visit her daughter. While in [place] she developed a cough and cold-like symptoms that include a sore throat. Patient is still dealing with this. She states that she was tested for COVID as an outpatient today. Patient states that she has had significant weakness and fatigue. Patient notes that she feels like she is mildly pale. Patient states that her blood counts were off today and she was sent directly to the emergency department for transfusion. Hematology is aware that she is here. The patient offers no other complaints today. They deny fever or chills. Denies chest pain or palpitations. No shortness of breath. They deny abdominal pain, nausea and vomiting. No urinary complaints. No recent changes in bowel movements. Patient denies recent changes in medications or OTC supplements. No blood in the stool or urine. Patient offers no other complaints, today. ADDITIONAL HISTORY OBTAINED: Per HPI Chronic Medical/Social Conditions Affecting Care: Per HPI PAST MEDICAL HISTORY: See Below PAST SURGICAL HISTORY: See Below FAMILY HISTORY: See Below SOCIAL HISTORY: See Below HOME MEDICATIONS: See Below ALLERGIES: See Below VITALS: See Below PHYSICAL EXAMINATION: GENERAL: Sitting up in bed, alert, well appearing, well nourished, no distress, non-toxic EYE EXAM: conjunctival pallor. PERRL and EOM's grossly intact. OROPHARYNX: no exudate, no erythema, lips, buccal mucosa, and tongue normal and mucous membranes are moist. The patient is mildly congested NECK: supple, no nuchal rigidity, no adenopathy, non-tender LUNGS: Clear to auscultation. Normal chest wall mechanics HEART: no murmurs, tachycardic rate, regular rhythm ABDOMEN: abdomen soft, non-tender, normo-active bowel sounds, no masses, no rebound or guarding. BACK: Back is symmetrical on inspection and there is no deformity, no midline tenderness, no CVA tenderness. SKIN: no rashes and no bruising, appears pale UPPER EXTREMITIES: upper extremities are grossly normal. LOWER EXTREMITIES: No pitting edema. NEURO EXAM: Normal sensorium, GCS 15, normal speech, no gross weakness of arms, no gross weakness of legs. MEDICAL DECISION MAKING: Differential diagnoses includes but not limited to acute pancytopenia, infectious etiologies, viral URI, kidney dysfunction, dehydration, blood loss, GI bleed, leukemic transition In summary, this is a 54 year old female who presented with new, profound pancytopenia in the setting of MDS. Differential as above. Nursing notes and pertinent past medical records reviewed. Vital signs reviewed and the patient is tachycardic but otherwise afebrile hemodynamically stable. History and presentation revealed extensive history of MDS. I reviewed external records including hematology notes. It appears that she was diagnosed with myelodysplastic syndrome in 2014. There was concerns for B-cell deficiency. She has had multiple bone marrow biopsy from [id number] 2. Patient did diagnosed with some fibrotic changes on bone marrow biopsy in 2021. 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 Patient has been evaluated by her she for bone marrow transplant in the past and this is still ongoing. She has not had a bone marrow transplant. I reviewed outpatient labs showing new profound pancytopenia. This is quite a change from prior. Patient will retry or require blood transfusion. No active bleeding present. Patient does feel weak and fatigued. Maybe mild dyspnea on exertion. Do feel she likely has symptomatic anemia. Jorge for irradiated leukoreduced blood. Patient had blood consent obtained on arrival. Plan for basic lab workup and close monitoring while in the emergency department but she will require admission. Given that she follows extensively with hematology, we will touch base with them given recommendations. There are concerns that this could just be related to MDS on top of possible other etiologies including viral illnesses or dehydration but my major concern would be transition to leukemia from MDS. Diagnostics interpreted by me include EKG and cardiac monitoring as listed below: -Cardiac Monitoring: An order was placed for continuous cardiac monitoring. The monitor shows a rate of 80-120s with regular rhythm. -ECG: . EKG independently interpreted by me reveals normal sinus rhythm at a ventricular rate of [address] segment changes to suggest STEMI. Intervals are within normal limits. -CXR independently interpreted by me reveals no evidence of focal consolidation to suggest pna. No large pneumothorax or pleural effusion. Patient completed laboratory studies and imaging. Results independently interpreted by me are acute on chronic pancytopenia noted. This is much worse than usual blood counts. Significant neutropenia. Does have cough and cold- like symptoms. Pending viral swab and chest x-ray. Patient has been struggling with MDS. Appears that she is on granulocyte study colony-stimulating factor but this does not appear to be improving her white blood cell count. She is scheduled to start a chemotherapy treatment weekly for the next month. Patient has had stem cell evaluation at [facility] but they are continue to observe. Patient follows with [facility] hematology. Given pancytopenia with symptomatic anemia, will discuss with the hematology team. Patient may require admission. The patient was managed with blood transfusion. Patient was discussed with hematology. They recommended admission for symptomatic anemia. Her outpatient therapies are not improving her symptoms. Patient did have 2 units transfused on 11/18 for hemoglobin of 7.1. They recommended possible bone marrow biopsy tomorrow. Her hemoglobin should be at goal of 8. They will reach out and discuss treatment with [facility] hematology team. They do not feel that transfer is necessary at this time. They recommended admission here. They will follow-up with patient as an inpatient. Is recommended to admit this patient at 1602. Ultimately, the decision was made to admit the patient for acute pancytopenia in the setting of MDS. I discussed the case with the hospitalist service via telephone/TigerText and they are agreeable to admit the patient to their services. Based on the above, including the patient's age, coexisting illnesses, labs, imaging, and exam findings the decision to treat as an inpatient. I discussed the patient with the hospitalist team who recommended admission to their services. They received the medications, treatments, interventions indicated above and their condition remained guarded. I discussed my findings with the patient and their family and they understand and agree with the treatment plan. All patient / family questions were answered to their satisfaction. Consults/Care Managements Discussions: Per MDM ER treatment provided: See above Procedures:none Critical Care: None The chart was completed utilizing Smile Speech voice recognition software. Grammatical errors, random word insertions, pronoun errors, and incomplete sentences are an occasional consequence of this system due to software limitations, ambient noise, and hardware issues. Any formal questions or concerns about the content, text, or information contained within the body of this dictation should be directly addressed to the physician for clarification. Past Med/Surg History Problem List (Updated 12/05/24 @ 15:30 by Francisco Viveros DO) Upper respiratory infection, viral (Acute) Symptomatic anemia (Acute) Pancytopenia (Acute) Thyroid nodule History of SCC (squamous cell carcinoma) of skin Vitamin D deficiency History of community acquired pneumonia 2021 Myelodysplasia (myelodysplastic syndrome) (Acute) Hyperglycemia LIS positive (Chronic) Anemia (Chronic) Arthralgia of multiple sites (Chronic) BMI 45.0-49.9, adult (Chronic) Cervicalgia (Chronic) Fatigue (Chronic) GERD without esophagitis (Chronic) Headache, menstrual migraine (Chronic) Thrombocytopenia (Chronic) Vitamin B12 deficiency (Chronic) Pancytopenia (Chronic) Hypertension (Chronic) Nocturnal hypoxemia (Chronic) Severe obstructive sleep apnea (Chronic) Kidney stones Anxiety Migraine Abnormality of left breast on screening mammography Medical History (Updated 12/05/24 @ 15:30 by Francisco Viveros DO) Hx of renal calculi passed on own Hx of migraines once per month Anxiety Myelodysplasia (myelodysplastic syndrome) has lab work monthly-- follows with Dr. [facility] Cardiomegaly moderate on 10/2023 CXR work up in past, no issues Moderate obstructive sleep apnea cpap Myalgia and myositis GERD (gastroesophageal reflux disease) Rheumatoid arthritis no meds, occasional joint pain Hypertension Surgical History History of bone marrow biopsy x2 at [facility], 1 in office Hx of colonoscopy (06/28/24) [facility] Hx of wisdom tooth extraction History of surgery (benign) fatty tissue removed under left arm History of esophagogastroduodenoscopy (EGD) History of cholecystectomy Family History Mother Father Stroke syndrome Stroke Aunt Breast cancer Colorectal cancer Grandmother (Maternal) Ovarian cancer Denies family history of Prostate cancer Diabetes Myocardial infarction Lung cancer Hypertension Social History Smoking Status: Never smoker Second Hand Exposure: No; Do You Dip or Chew Tobacco: No; Hx Alcohol Use: Yes Alcohol type: wine Hx Substance Use: No Preferred Language: Maori Communication Ability: Effective Visual Impairment: No Limitations Hearing Ability: Normal Elevator Builder Required: No Beliefs That Will Affect Care: None marital status: Current Living Situation: Alone Current Living Situation Comment: friend lives with pt current occupational status: employed 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 Feels Safe at Home: Yes Childhood Exposure to Second-Hand Smoke: Yes caffeine: Yes Dental Care, Regularly: Yes Physical Activity Frequency: 3-4 Times per Week Seatbelt Use: sometimes Sunscreen Use: Yes Assistive Devices: None Allergies Allergies Allergy/AdvReac Type Severity Reaction Status Date / Time No Known Allergies Allergy NONE Verified 11/19/24 09:34 Home Meds Home Medications Medication Instructions Recorded Confirmed multivitamin 1 tab PO DAILY 10/08/24 12/02/24 escitalopram oxalate 20 mg tablet 20 mg PO QAM 11/19/24 12/02/24 (Lexapro) lisinopril 10 mg tablet (Zestril) 10 mg PO QAM 11/19/24 12/02/24 levofloxacin 500 mg tablet 500 mg PO DAILY 12/02/24 12/02/24 Previous Rx's Medication Instructions Recorded Auto Titrating CPAP #1 ea 12/11/20 omeprazole 20 mg capsule,delayed 20 mg PO QAM #90 caps 07/31/24 release acyclovir 400 mg tablet 400 mg PO BID 30 days #60 tabs 12/04/24 fluconazole 200 mg tablet 400 mg (2 x 200 mg) PO DAILY 12/04/24 days #42 tabs Results & Data (ED) Vital Signs Vital Signs - 24 hr 12/02/24 14:42 12/02/24 15:21 12/02/24 15:24 Temperature 36.6 C Temperature Source Temporal Artery Scan Pulse Rate 105 H 94 H Pulse Rate [Apical] 95 H Respiratory Rate 16 27 H Respiratory Effort / Characteristics Non-Labored Spontaneous Respiratory Depth Normal Respiratory Pattern Regular Blood Pressure 146/69 H Blood Pressure [Left Arm] 192/90 H Blood Pressure Mean 94 Blood Pressure Mean [Left Arm] 124 Pulse Oximetry 100 97 Oxygen Delivery Method Room Air Sepsis Recent Fever Within 48 Hours No Sepsis New/Unexplained Change in Mental Status N/A Sepsis Action Taken by Nursing No Action Required 12/02/24 17:00 Temperature Temperature Source Pulse Rate 83 Pulse Rate [Apical] Respiratory Rate 20 Respiratory Effort / Characteristics Respiratory Depth Respiratory Pattern Blood Pressure 180/87 H Blood Pressure [Left Arm] Blood Pressure Mean 121 Blood Pressure Mean [Left Arm] Pulse Oximetry 99 Oxygen Delivery Method Room Air Sepsis Recent Fever Within 48 Hours Sepsis New/Unexplained Change in Mental Status Sepsis Action Taken by Nursing Laboratory Data 12/04/24 16:55 12/04/24 05:58 Lab Results 12/02/24 12/02/24 12/02/24 Range/Units 14:56 15:16 15:17 WBC 0.43 L* (4.8-10.8) K/ul RBC 1.92 L (4.20-5.40) M/uL Hgb 5.7 L* (12.0-16.0) g/dl Hct 17.7 L* (37.0-47.0) % MCV 92.2 (80.0-100.0) fL MCH 29.7 (25.0-34.0) pg MCHC 32.2 (32.0-36.0) g/dL RDW Std Deviation 52.5 H (36.4-46.3) fL RDW Coeff of Kota 15.8 H (11.5-14.5) % Plt Count 16 L* (130-400) K/uL Neut # (Auto) < 0.50 L* (1.40-6.50) K/uL Anisocytosis Present PT 11.0 (9.0-12.0) Seconds INR 1.0 (0.9-1.1) APTT 29 (21-31) Seconds PTT Ratio 1.1 Sodium 138 (136-145) mmol/L Potassium 3.5 (3.5-5.1) mmol/L Chloride 106 (98-107) mmol/L Carbon Dioxide 26 (21-32) mmol/L Anion Gap 6 (3-11) BUN 13 (6-23) mg/dl Creatinine 0.57 L (0.6-1.2) mg/dl Est Cr Clr Drug Dosing 140.6 ml/min eGFR 107.92 BUN/Creatinine Ratio 22.8 H (10-20) Glucose 109 H (70-99(Fasting)) mg/dl Lactate (0.4-2.0) mmol/L Calcium 9.1 (8.6-10.3) mg/dl Total Bilirubin 0.6 (0.2-1.0) mg/dl AST 14 (13-39) U/L ALT 11 (7-52) U/L Alkaline Phosphatase 80 (34-104) U/L Total Protein 7.8 (6.0-8.3) gm/dl Albumin 3.9 (3.4-5.0) gm/dl Globulin 3.9 (2.5-4.0) gm/dl Albumin/Globulin Ratio 1.0 (0.9-2) SARS-CoV-2 (PCR) NEGATIVE (Negative) Influenza Type A (PCR) Negative (Neg) Influenza Type B (PCR) Negative (Neg) RSV (RT-PCR) Negative (Neg) Blood Type O Positive Antibody Screen NEGATIVE Crossmatch See Detail 12/02/24 Range/Units 16:25 WBC (4.8-10.8) K/ul RBC (4.20-5.40) M/uL Hgb (12.0-16.0) g/dl Hct (37.0-47.0) % MCV (80.0-100.0) fL MCH (25.0-34.0) pg MCHC (32.0-36.0) g/dL RDW Std Deviation (36.4-46.3) fL RDW Coeff of Kota (11.5-14.5) % Plt Count (130-400) K/uL Neut # (Auto) (1.40-6.50) K/uL Anisocytosis PT (9.0-12.0) Seconds INR (0.9-1.1) APTT (21-31) Seconds PTT Ratio Sodium (136-145) mmol/L Potassium (3.5-5.1) mmol/L Chloride (98-107) mmol/L Carbon Dioxide (21-32) mmol/L Anion Gap (3-11) BUN (6-23) mg/dl Creatinine (0.6-1.2) mg/dl Est Cr Clr Drug Dosing ml/min eGFR BUN/Creatinine Ratio (10-20) Glucose (70-99(Fasting)) mg/dl Lactate 0.6 (0.4-2.0) mmol/L Calcium (8.6-10.3) mg/dl Total Bilirubin (0.2-1.0) mg/dl AST (13-39) U/L ALT (7-52) U/L Alkaline Phosphatase (34-104) U/L Total Protein (6.0-8.3) gm/dl Albumin (3.4-5.0) gm/dl Globulin (2.5-4.0) gm/dl Albumin/Globulin Ratio (0.9-2) SARS-CoV-2 (PCR) (Negative) Influenza Type A (PCR) (Neg) Influenza Type B (PCR) (Neg) RSV (RT-PCR) (Neg) Blood Type Antibody Screen Crossmatch Administered Medications Discontinued Medications Acetaminophen (Acetaminophen 325 Mg Tab) 650 mg PO Q6H PRN PRN Reason: pain/fever Stop: 01/02/25 04:57 Last Admin: 12/04/24 11:25 Dose: 650 mg Documented By: GERMAINE Acyclovir (Acyclovir 400 Mg Tab) 400 mg PO BID JAYLENE Stop: 01/03/25 08:59 Last Admin: 12/04/24 09:37 Dose: 400 mg Documented By: GERMAINE Escitalopram Oxalate (Escitalopram Oxalate 20 Mg Tab) 20 mg PO QAM JAYLENE Stop: 01/02/25 08:59 Last Admin: 12/04/24 08:30 Dose: 20 mg Documented By: Admin: 12/03/24 08:14 Dose: 20 mg Documented By: IDALIA Fentanyl Citrate (Fentanyl Citrate Pf 100 Mcg/2 Ml Vial) Confirm Administered Dose 100 mcg .ROUTE .STK-MED ONE Stop: 12/03/24 11:00 Last Increment: 12/03/24 11:49 Dose: 50 mcg Documented By: TRISH Acetaminophen (Ofirmev) 1,000 mg in 100 mls @ 400 mls/hr IV NOW ONE Stop: 12/03/24 11:44 Last Infusion: 12/03/24 12:25 Dose: Infused Documented By: Admin: 12/03/24 11:09 Dose: 400 mls/hr Documented By: TRISH Sodium Chloride (Nss) 100 mls @ 15 mls/hr IV .Q6H40M PRN PRN Reason: For Transfusion Duration Stop: 12/03/24 20:09 Last Infusion: 12/03/24 14:02 Dose: Infused Documented By: Admin: 12/03/24 13:01 Dose: 15 mls/hr Documented By: IDALIA Cefepime HCl (Maxipime 2000mg) 2,000 mg in 20 mls @ 5 mls/min IV Q8H JAYLENE; Protocol Stop: 12/06/24 08:59 Last Admin: 12/04/24 16:32 Dose: 5 mls/min Documented By: Admin: 12/04/24 11:00 Dose: 5 mls/min Documented By: GERMAINE Lisinopril (Lisinopril 10 Mg Tab) 10 mg PO QAM [facility] Stop: 01/02/25 08:59 Last Admin: 12/04/24 08:30 Dose: 10 mg Documented By: Admin: 12/03/24 08:13 Dose: 10 mg Documented By: IDALIA Multivitamins (Multivitamin Tab) 1 tab PO DAILY JAYLENE Stop: 01/02/25 08:59 Last Admin: 12/04/24 08:30 Dose: 1 tab Documented By: Admin: 12/03/24 08:14 Dose: 1 tab Documented By: IDALIA Pantoprazole Sodium (Pantoprazole 40 Mg Tab) 40 mg PO QAM [facility] Stop: 01/02/25 08:59 Last Admin: 12/04/24 08:30 Dose: 40 mg Documented By: Admin: 12/03/24 08:13 Dose: 40 mg Documented By: IDALIA Imaging Data Radiologist's Impression: Chest X-Ray 12/02/24 15:17 XR chest 2V PA/lateral CLINICAL HISTORY: Cold like symptoms COMPARISON STUDY: 11/01/2023 FINDINGS: Heart size and pulmonary vasculature are normal. No consolidation or pleural effusion. No pneumothorax. IMPRESSION: No pneumonia seen. ACT 112: Negative or not required by law. Electronically signed by: Catalino Amaya M.D. 12/02/2024 3:49 PM Discharge Plan Visit Data Chief Complaint: Referred by Doctor Stated Complaint: DOC REFERRAL, LOW BLOOD COUNTS ED Provider: Francisco Viveros Discharge Problem: Myelodysplasia (myelodysplastic syndrome), Pancytopenia, Symptomatic anemia, Upper respiratory infection, viral Patient Disposition: Admitted As Inpatient Condition: Fair Discharge Instructions Interventions: ED Discharge Assessment Last Done: 12/03/24 19:49
[2024-12-02 15:43] LABS: Hematocrit (blood only) 17.7 % (37.0-47.0); Hemoglobin 5.7 g/dl (12.0-16.0); Mean Corpuscular Hemoglobin 29.7 pg (25.0-34.0); Mean Corpuscular Volume 92.2 fL (80.0-100.0); Platelet Count 16 K/uL (130-400); RDW Standard Deviation 52.5 fL (36.4-46.3); Red Blood Count 1.92 M/uL (4.20-5.40); White Blood Count 0.43 K/ul (4.8-10.8)
[2024-12-02 15:49] LABS: Alanine Aminotransferase 11.0 U/L (7-52); Albumin Globulin Ratio 1.0 (0.9-2); Alkaline Phosphatase 80.0 U/L (34-104); Anion Gap 6.0 (3-11); Bilirubin,Total 0.6 mg/dl (0.2-1.0); Blood Urea Nitrogen 13.0 mg/dl (6-23); Calcium 9.1 mg/dl (8.6-10.3); Carbon Dioxide 26.0 mmol/L (21-32); Chloride 106.0 mmol/L (98-107); Creatinine Clr Calc Pharmacy 140.6 ml/min; Globulin 3.9 gm/dl (2.5-4.0); Glucose 109.0 mg/dl (70-99(Fasting)); Potassium 3.5 mmol/L (3.5-5.1); Sodium 138.0 mmol/L (136-145); Total Protein 7.8 gm/dl (6.0-8.3)
[2024-12-02 15:49] LABS: Influenza A virus by PCR Negative (Neg); Influenza B virus by PCR Negative (Neg); SARS CoV2 RNA(COVID-19) Ceph NEGATIVE (Negative)
--- NOTE | 2024-12-02 15:51 | XRay Report ---
XR chest 2V PA/lateral CLINICAL HISTORY: Cold like symptoms COMPARISON STUDY: 11/01/2023 FINDINGS: Heart size and pulmonary vasculature are normal. No consolidation or pleural effusion. No p neumothorax. IMPRESSION: No pneumonia seen. ACT 112: Negative or not required by law. Electronically signed by: Catalino Amaya M.D. 12/02/2024 3:49 PM
[2024-12-02 15:56] LABS: Anisocytosis Present
[2024-12-02 16:06] LABS: INR 1.0 (0.9-1.1); Partial Thromboplastin Time 29 Seconds (21-31); Prothrombin Time 11.0 Seconds (9.0-12.0)
--- NOTE | 2024-12-02 17:02 | History & Physical Report ---
Date of Service December 02, 2024 Assessment & Plan (1) Myelodysplasia (myelodysplastic syndrome): (2) Pancytopenia: Plan Pancytopenia in a 54 yo patient with myelodysplastic syndrome Hemoglobin is low. Will transfuse 2 units of PRBC will consult heme GERD without esophagitis: Continue pantoprazole 40mg PO daily Anxiety: Continue Lexapro Hypertension: Continue lisinopril History of Present Illness Chief Complaint: abnormal labs Primary Care Provider: Kina Garcia, DO 54 yo female with myelodysplatic syndrome, pancytopenia, neutropenia, went to [place] recently and had some upper respiratory symptoms. Patient came to the ED because she felt fatigued and had blood tests that should her levels were low. [facility] and has had multiuple bone marrows completed. Jessica had a recent transfusion on 11/19 Allergies Allergy/AdvReac Type Severity Reaction Status Date / Time No Known Allergies Allergy NONE Verified 11/19/24 09:34 Home Medications Medication Instructions Recorded Confirmed Type Auto Titrating CPAP #1 ea 12/11/20 12/02/24 Rx omeprazole 20 mg capsule,delayed 20 mg PO QAM #90 caps 07/31/24 12/02/24 Rx release multivitamin 1 tab PO DAILY 10/08/24 12/02/24 History escitalopram oxalate 20 mg tablet 20 mg PO QAM 11/19/24 12/02/24 History (Lexapro) lisinopril 10 mg tablet (Zestril) 10 mg PO QAM 11/19/24 12/02/24 History levofloxacin 500 mg tablet 500 mg PO DAILY 12/02/24 12/02/24 History Past Med/Surg History Problem List Thyroid nodule History of SCC (squamous cell carcinoma) of skin Vitamin D deficiency History of community acquired pneumonia 2021 Myelodysplasia (myelodysplastic syndrome) Hyperglycemia LIS positive (Chronic) Anemia (Chronic) Arthralgia of multiple sites (Chronic) BMI 45.0-49.9, adult (Chronic) Cervicalgia (Chronic) Fatigue (Chronic) GERD without esophagitis (Chronic) Headache, menstrual migraine (Chronic) Thrombocytopenia (Chronic) Vitamin B12 deficiency (Chronic) Pancytopenia (Chronic) Hypertension (Chronic) Nocturnal hypoxemia (Chronic) Severe obstructive sleep apnea (Chronic) Kidney stones Anxiety Migraine Abnormality of left breast on screening mammography Medical History Hx of renal calculi passed on own Hx of migraines once per month Anxiety Myelodysplasia (myelodysplastic syndrome) has lab work monthly-- follows with Dr. Hyman at [facility] Cardiomegaly moderate on 10/2023 CXR work up in past, no issues Moderate obstructive sleep apnea cpap Myalgia and myositis GERD (gastroesophageal reflux disease) Rheumatoid arthritis no meds, occasional joint pain Hypertension Surgical History History of bone marrow biopsy x2 at [facility], 1 in office Hx of colonoscopy (06/28/24) [facility] Hx of wisdom tooth extraction History of surgery (benign) fatty tissue removed under left arm History of esophagogastroduodenoscopy (EGD) History of cholecystectomy Family History Mother Father Stroke syndrome Stroke Aunt Breast cancer Colorectal cancer Grandmother (Maternal) Ovarian cancer Denies family history of Prostate cancer Diabetes Myocardial infarction Lung cancer Hypertension Social History Smoking Status: Never smoker Second Hand Exposure: No; Do You Dip or Chew Tobacco: No; Hx Alcohol Use: Yes Alcohol type: wine Hx Substance Use: No Preferred Language: Belarusian Communication Ability: Effective Visual Impairment: No Limitations Hearing Ability: Normal Transfer Car Operator Required: No Beliefs That Will Affect Care: None marital status: Current Living Situation: Alone Current Living Situation Comment: friend lives with pt current occupational status: employed 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 Feels Safe at Home: Yes Childhood Exposure to Second-Hand Smoke: Yes caffeine: Yes Dental Care, Regularly: Yes Physical Activity Frequency: 3-4 Times per Week Seatbelt Use: sometimes Sunscreen Use: Yes Assistive Devices: None Review of Systems Constitutional: no fever and no body aches Eyes: no blind spots Ear, Nose, Mouth, Throat: no ear pain Respiratory: no cough Cardiovascular: no chest pain Gastrointestinal: no abdominal pain Genitourinary: no dysuria Musculoskeletal: no back pain Integumentary: no acne Neurologic: no gait abnormality Psychiatric: no behavioral changes Endocrine: no fatigue Hematologic / Lymphatic: no easy bleeding Allergy / Immunological: no GI upset with certain foods Physical Exam Constitutional: WD/WN, vitals as above Eyes: PERRL, conjunctivae normal, anicteric sclerae ENMT: external ear and nose normal, oropharynx normal Neck: trachea midline, no thyromegaly Respiratory: normal respiratory effort, lungs clear to auscultation Cardiovascular: RRR, no murmur, no edema Gastrointestinal (Abdomen): normal bowel sounds, soft, nontender, no hepatosplenomegaly Musculoskeletal: no cyanosis or clubbing, extremities motor strength 5/5 Skin: pale Neurologic: PERRL, EOMI, accommodation nl, no face palsy, no dysarthria Psychiatric: A+Ox3, euthymic affect Lymphatic: no cervical or axillary lymphadenopathy Results & Data Results & Data Vital Signs (Past 12 Hours) Vital Signs Temp Pulse Pulse Resp BP BP Pulse Ox 12/02/24 15:24 94 H 12/02/24 15:21 95 H 27 H 192/90 H 97 12/02/24 14:42 36.6 C 105 H 16 146/69 H 100 O2 Del Method 12/02/24 15:24 12/02/24 15:21 Room Air 12/02/24 14:42 PG Care Time/CCT Total # of Minutes Spent Total Time Spent with Patient: Total time spent is greater than 50% in coordination of care (as documented) at patient's floor/unit and/or counseling patient: Coding Level of Care Code 48398 INT INP/OBS CARE 3/75MIN Diagnoses Myelodysplasia (myelodysplastic syndrome) D46.9 Pancytopenia D61.818
--- NOTE | 2024-12-02 22:32 | Electrocardiogram Report ---
Test Reason : Blood Pressure : */* mmHG Vent. Rate : 97 BPM Atrial Rate : 97 BPM P-R Int : 158 ms QRS Dur : 88 ms QT Int : 360 ms P-R-T Axes : 76 54 57 degrees QTcB Int : 457 ms Normal sinus rhythm Cannot rule out Anterior infarct , age undetermined Abnormal ECG When compared with ECG of 03-Oct-2024 09:38, No significant change was found Confirmed by Omari Suresh ([id number]) on 12/02/2024 10:32:37 PM Referred By: Kae Hyman Confirmed By: Omari Suresh
[2024-12-03 04:54] LABS: Hematocrit (blood only) 21.0 % (37.0-47.0); Hemoglobin 7.1 g/dl (12.0-16.0); Mean Corpuscular Hemoglobin 30.1 pg (25.0-34.0); Mean Corpuscular Volume 89.0 fL (80.0-100.0); Platelet Count 14 K/uL (130-400); RDW Standard Deviation 50.2 fL (36.4-46.3); Red Blood Count 2.36 M/uL (4.20-5.40); White Blood Count 0.50 K/ul (4.8-10.8)
[2024-12-03 05:07] LABS: Anion Gap 4.0 (3-11); Blood Urea Nitrogen 12.0 mg/dl (6-23); Calcium 8.7 mg/dl (8.6-10.3); Carbon Dioxide 28.0 mmol/L (21-32); Chloride 106.0 mmol/L (98-107); Creatinine Clr Calc Pharmacy 151.2 ml/min; Glucose 107.0 mg/dl (70-99(Fasting)); Potassium 3.9 mmol/L (3.5-5.1); Sodium 138.0 mmol/L (136-145)
[2024-12-03] MEDS: MULTIVITAMIN TAB PO SCH (08:14)
[2024-12-03] MEDS: ESCITALOPRAM OXALATE 20 MG TAB PO SCH (08:14)
--- NOTE | 2024-12-03 09:09 | Oncology Consultation ---
Date of Consultation December 03, 2024 Assessment & Plan (1) Myelodysplasia (myelodysplastic syndrome): Plan -Follow-up on bone marrow biopsy results. If bone marrow biopsy shows progression to acute leukemia, will need transfer to [facility]. If bone marrow biopsy shows stable MDS, plan to start azacitidine on 12/09/2024. -Transfuse for hemoglobin below 7.5, platelet count below 15,000 -Due to severe pancytopenia, would recommend she continue with prophylactic levofloxacin 500 mg p.o. daily. Also Recommend starting acyclovir 400 mg p.o. twice daily and fluconazole 400 mg p.o. daily Thank you for this consult. Will follow patient closely while she is in the hospital. Please feel free to call if you have any further questions. History of Present Illness Reason for Consultation: Myelodysplastic syndrome Attending Physician: Calos Hernandez History of Present Illness Ms. Jiang is a 54-year-old female with myelodysplastic syndrome initially diagnosed in 2018. She was scheduled to start azacitidine on 12/09/2024. Presented to the ER with respiratory symptoms and was found to have symptomatic anemia/worsening pancytopenia. She underwent repeat bone marrow biopsy today to rule out progression to acute leukemia Allergies Allergy/AdvReac Type Severity Reaction Status Date / Time No Known Allergies Allergy NONE Verified 11/19/24 09:34 Home Medications Medication Instructions Recorded Confirmed Type Auto Titrating CPAP #1 ea 12/11/20 12/02/24 Rx omeprazole 20 mg capsule,delayed 20 mg PO QAM #90 caps 07/31/24 12/02/24 Rx release multivitamin 1 tab PO DAILY 10/08/24 12/02/24 History escitalopram oxalate 20 mg tablet 20 mg PO QAM 11/19/24 12/02/24 History (Lexapro) lisinopril 10 mg tablet (Zestril) 10 mg PO QAM 11/19/24 12/02/24 History levofloxacin 500 mg tablet 500 mg PO DAILY 12/02/24 12/02/24 History Patient History Medical History Hx of renal calculi passed on own Hx of migraines once per month Anxiety Myelodysplasia (myelodysplastic syndrome) has lab work monthly-- follows with Dr. Hyman at [facility] Cardiomegaly moderate on 10/2023 CXR work up in past, no issues Moderate obstructive sleep apnea cpap Myalgia and myositis GERD (gastroesophageal reflux disease) Rheumatoid arthritis no meds, occasional joint pain Hypertension Surgical History History of bone marrow biopsy x2 at [facility], 1 in office Hx of colonoscopy (06/28/24) [facility] Hx of wisdom tooth extraction History of surgery (benign) fatty tissue removed under left arm History of esophagogastroduodenoscopy (EGD) History of cholecystectomy Family History Mother Father Stroke syndrome Stroke Aunt Breast cancer Colorectal cancer Grandmother (Maternal) Ovarian cancer Denies family history of Prostate cancer Diabetes Myocardial infarction Lung cancer Hypertension Social History Smoking Status: Never smoker Second Hand Exposure: No; Do You Dip or Chew Tobacco: No; Tobacco Cessation Education Requested by Patient: No Hx Alcohol Use: Yes Alcohol type: wine Hx Substance Use: No Preferred Language: Kiswahili Communication Ability: Effective Visual Impairment: No Limitations Hearing Ability: Normal Dean Required: No Beliefs That Will Affect Care: None marital status: Current Living Situation: Alone Current Living Situation Comment: friend lives with pt current occupational status: employed 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 Other Information That Helps Us Care for You: No Feels Safe at Home: Yes Safety Concerns: Feels Safe At This Time Childhood Exposure to Second-Hand Smoke: Yes caffeine: Yes Dental Care, Regularly: Yes Physical Activity Frequency: 3-4 Times per Week Seatbelt Use: sometimes Sunscreen Use: Yes Assistive Devices: None Results & Data Vital Signs (Past 12 Hours) Vital Signs Temp Pulse Pulse Resp BP BP Pulse Ox 12/03/24 08:00 36.8 C 110 H 18 127/74 95 12/03/24 07:23 91 H 12/03/24 06:00 95 H 16 161/80 H 92 12/03/24 05:00 95 H 18 156/75 H 93 12/03/24 04:18 94 H 21 91 12/03/24 03:30 164/70 H 12/03/24 03:30 90 17 164/70 H 93 12/03/24 03:25 163/82 H 12/03/24 03:06 92 H 19 93 12/03/24 03:00 92 H 18 92 12/03/24 02:51 90 17 94 12/03/24 02:42 91 H 20 94 12/03/24 02:30 87 17 95 12/03/24 02:18 95 H 17 96 12/03/24 02:03 90 17 95 12/03/24 01:54 88 17 96 12/03/24 01:42 86 16 153/69 H 96 12/03/24 01:30 86 16 153/69 H 96 12/03/24 01:28 36.8 C 87 17 153/69 H 95 12/03/24 01:21 85 18 96 12/03/24 00:55 12/03/24 00:42 86 18 150/72 H 98 12/03/24 00:30 150/72 H 12/03/24 00:13 36.8 C 88 18 143/64 H 97 12/03/24 00:12 87 21 143/64 H 100 12/03/24 00:12 87 21 143/64 H 100 12/03/24 00:03 87 19 97 12/03/24 00:00 142/68 H 12/02/24 23:57 87 19 142/68 H 97 12/02/24 23:31 36.9 C 86 18 137/68 95 12/02/24 23:30 137/68 94 12/02/24 23:00 99 H 15 131/65 93 12/02/24 21:45 36.9 C 97 H 137/70 93 12/02/24 21:15 36.9 C 93 H 18 142/72 H 98 Pulse Ox O2 Del Method O2 Del Method 12/03/24 08:00 Room Air 12/03/24 07:23 12/03/24 06:00 Room Air 12/03/24 05:00 Room Air 12/03/24 04:18 12/03/24 03:30 12/03/24 03:30 Room Air 12/03/24 03:25 12/03/24 03:06 12/03/24 03:00 12/03/24 02:51 12/03/24 02:42 12/03/24 02:30 12/03/24 02:18 12/03/24 02:03 12/03/24 01:54 12/03/24 01:42 12/03/24 01:30 Room Air 12/03/24 01:28 Room Air 12/03/24 01:21 12/03/24 00:55 90 Room Air 12/03/24 00:42 12/03/24 00:30 12/03/24 00:13 12/03/24 00:12 12/03/24 00:12 Room Air 12/03/24 00:03 Room Air 12/03/24 00:00 12/02/24 23:57 12/02/24 23:31 12/02/24 23:30 Room Air 12/02/24 23:00 Room Air 12/02/24 21:45 12/02/24 21:15
[2024-12-03 11:01] LABS: Mean Corpuscular Hemoglobin 30.2 pg (25.0-34.0); Mean Corpuscular Volume 87.2 fL (80.0-100.0); RDW Standard Deviation 49.1 fL (36.4-46.3); Red Blood Count 2.35 M/uL (4.20-5.40)
[2024-12-03 11:02] LABS: Hematocrit (blood only) 20.5 % (37.0-47.0); Hemoglobin 7.1 g/dl (12.0-16.0); Platelet Count 14 K/uL (130-400); White Blood Count 0.51 K/ul (4.8-10.8)
[2024-12-03 11:08] LABS: Bone Marrow Smear SLHOLD; RBC Morphology Unremarkable
[2024-12-03] MEDS: ACETAMINOPHEN 1,000 MG/100 ML VIAL IV ONE (11:09)
[2024-12-03 11:11] LABS: Immature Granulocytes # (auto) 0.00 K/uL (0.01-0.20); Immature Granulocytes % (auto) 0.0 %
[2024-12-03] MEDS ORDERED: SODIUM CHLORIDE 0.9% 100 ML IV PRN (12:59)
[2024-12-03] MEDS: SODIUM CHLORIDE 0.9% 100 ML IV PRN (13:01)
--- NOTE | 2024-12-03 13:18 | CT Scan Report ---
CT guided bone marrow biopsy INDICATION: Pancytopenia PROCEDURE: Procedure and risks were explained. Informed consent was obtained. A final timeout was com pleted. The patient was placed prone on the CT exam table. The left gluteal region was prepped and dr aped in sterile fashion. 1% lidocaine was utilized for skin anesthesia. The patient received 1 g Tyle nol and 50 mcg fentanyl IV. Utilizing CT guidance, an 11-gauge bone biopsy needle was advanced into the left iliac bone. Multiple aspirates were attempted, but specimen clotted quickly. 1 bone core was obtained and given to the la b. The needle was removed and Band-Aid applied. The patient tolerated the procedure well. Vital signs will be monitored postprocedure. IMPRESSION: Bone marrow biopsy as above. Performed, dictated, and signed by Sina Nguyen PA-C; to be co-signed by Dr. Catalino Amaya. Electronically signed by: Catalino Amaya M.D. 12/03/2024 2:51 PM
--- NOTE | 2024-12-03 22:58 | Hospitalist Progress Note ---
Date of Service December 03, 2024 Assessment & Plan (1) Myelodysplasia (myelodysplastic syndrome): (2) Pancytopenia: Plan Pancytopenia in a 54 yo patient with myelodysplastic syndrome Hemoglobin is low. transfused 2 units of PRBC Hemoglobin improved but heme/onc recommmends an additional unit of PRBC. With platelets low at 14 will aso replenish. Bone marrow biopsy was also completed today. awaiting results. appreciate input from heme/onc GERD without esophagitis: Continue pantoprazole 40mg PO daily Anxiety: Continue Lexapro Hypertension: Continue lisinopril Admission and Anticipated Discharge Date Admission Date: December 02, 2024 Subjective Patient reports feeling better. Physical Exam Constitutional: WD/WN, vitals as above Eyes: PERRL, conjunctivae normal, anicteric sclerae ENMT: external ear and nose normal, oropharynx normal Neck: trachea midline, no thyromegaly Respiratory: normal respiratory effort, lungs clear to auscultation Cardiovascular: RRR, no murmur, no edema Gastrointestinal (Abdomen): normal bowel sounds, soft, nontender, no hepatosplenomegaly Musculoskeletal: no cyanosis or clubbing, extremities motor strength 5/5 Neurologic: PERRL, EOMI, accommodation nl, no face palsy, no dysarthria Psychiatric: A+Ox3, euthymic affect Lymphatic: no cervical or axillary lymphadenopathy Results & Data Results & Data Vital Signs (Past 12 Hours) Vital Signs Temp Pulse Pulse Resp BP BP Pulse Ox 12/03/24 22:14 36.7 C 85 18 142/80 H 98 12/03/24 21:44 36.7 C 87 18 153/64 H 98 12/03/24 21:29 36.7 C 84 18 130/67 95 12/03/24 21:06 37.2 C 91 H 20 128/70 96 12/03/24 20:38 89 12/03/24 19:49 12/03/24 19:40 36.8 C 91 H 20 132/72 96 12/03/24 19:05 94 H 18 150/56 H 94 12/03/24 16:14 94 H 24 148/81 H 95 12/03/24 13:25 36.7 C 84 18 130/67 12/03/24 13:20 36.8 C 93 H 16 151/68 H 98 12/03/24 13:05 37.2 C 92 H 20 148/77 H 96 12/03/24 12:43 37.2 C 94 H 20 143/72 H 96 12/03/24 12:00 36.8 C 91 H 22 155/77 H 96 O2 Del Method 12/03/24 22:14 12/03/24 21:44 12/03/24 21:29 12/03/24 21:06 12/03/24 20:38 12/03/24 19:49 Room Air 12/03/24 19:40 Room Air 12/03/24 19:05 Room Air 12/03/24 16:14 Room Air 12/03/24 13:25 12/03/24 13:20 12/03/24 13:05 12/03/24 12:43 12/03/24 12:00 Room Air PG Care Time/CCT Total # of Minutes Spent Total Time Spent with Patient: Total time spent is greater than 50% in coordination of care (as documented) at patient's floor/unit and/or counseling patient: Coding Level of Care Code 47670 SUB INP/OBS CARE 3/50MIN Diagnoses Myelodysplasia (myelodysplastic syndrome) D46.9 Pancytopenia D61.818
[2024-12-04 01:48] LABS: Hematocrit (blood only) 22.2 % (37.0-47.0); Hemoglobin 7.8 g/dl (12.0-16.0)
[2024-12-04 07:57] LABS: Hematocrit (blood only) 23.1 % (37.0-47.0); Hemoglobin 8.0 g/dl (12.0-16.0); Mean Corpuscular Hemoglobin 30.3 pg (25.0-34.0); Mean Corpuscular Volume 87.5 fL (80.0-100.0); Platelet Count 16 K/uL (130-400); RDW Standard Deviation 49.1 fL (36.4-46.3); Red Blood Count 2.64 M/uL (4.20-5.40); White Blood Count 0.40 K/ul (4.8-10.8)
[2024-12-04 08:06] LABS: Anion Gap 4.0 (3-11); Blood Urea Nitrogen 12.0 mg/dl (6-23); Calcium 8.7 mg/dl (8.6-10.3); Carbon Dioxide 28.0 mmol/L (21-32); Chloride 107.0 mmol/L (98-107); Creatinine Clr Calc Pharmacy 168.3 ml/min; Glucose 107.0 mg/dl (70-99(Fasting)); Potassium 3.6 mmol/L (3.5-5.1); Sodium 139.0 mmol/L (136-145)
[2024-12-04] MEDS: ACYCLOVIR 400 MG TAB PO SCH (09:37)
--- NOTE | 2024-12-04 10:24 | Hospitalist Progress Note ---
Date of Service December 04, 2024 Assessment & Plan (1) Myelodysplasia (myelodysplastic syndrome): (2) Pancytopenia: Plan Karen Jiang is a 54 yo patient with myelodysplastic syndrome. she's travel to [place] and developed fatigue, sore throat, congestion found to has pancytopenia, s/p transfusions. she's s/p bone marrow biopsy to rule out leuekemia transformation. acute pancotyopenia hx of MDS s/p 2 units of pRBC no bloody stool; no melena if H/H continue to drop, then also transfuse platelet cefepime for prophylaxis acyclovir BID low bactereia diet GERD without esophagitis: Continue pantoprazole 40mg PO daily Anxiety: Continue Lexapro Hypertension: Continue lisinopril Admission and Anticipated Discharge Date Admission Date: December 02, 2024 Subjective her H/H stable. await bone marrow pathology to r/o acute leukemia s/p blood production transfusion. no bloody stool; no melena; no abdominal pain Review of Systems Review of Systems: Constitutional: + for fatigue; no fever; no chill ENT/Mouth: for sore throat and congestion. Cardiovascular: no chest pain lung: no shortness of breath; + for coughing spell Gastrointestinal: No Nausea, No Vomiting, No Diarrhea, No Constipation, No Pain, No Heartburn, No Anorexia, No Dysphagia, No Hematochezia, No Melena Genitourinary: No Dysmenorrhea, No DUB, No Dyspareunia, No Dysuria, No Urinary Frequency, No Hematuria, No Urinary Incontinence, No Urgency, No Flank Pain, No Urinary Flow Changes, No Hesitancy Musculoskeletal: No Arthralgias, No Myalgias, No Joint Swelling, No Joint Stiffness, No Back Pain, No Neck Pain, No Injury History Neuro: No Weakness, No Numbness, No Paresthesias, No Loss of Consciousness, No Syncope, No Dizziness Physical Exam Physical Exam: General: no acute distress HEENT:AT/NC Heart: normal s1; s2; RRR lung: CTA b/l; no wheezing abdomen: soft to touch; non-tender to palpation MSK: no edema Results & Data Results & Data Vital Signs (Past 12 Hours) Vital Signs Temp Pulse Pulse Resp BP BP Pulse Ox 12/04/24 08:06 36.7 C 70 16 131/63 97 12/04/24 07:27 85 12/04/24 04:06 36.6 C 84 18 145/74 H 94 12/04/24 00:47 88 26 H 95 12/04/24 00:40 89 12/04/24 00:14 36.6 C 89 18 144/74 H 96 12/03/24 23:14 36.7 C 90 18 146/75 H 95 O2 Del Method FiO2 12/04/24 08:06 Room Air 12/04/24 07:27 12/04/24 04:06 Room Air 12/04/24 00:47 21 12/04/24 00:40 12/04/24 00:14 12/03/24 23:14 Laboratory Results Laboratory Results - last 72 hr 12/02/24 12/02/24 12/02/24 14:56 15:16 15:17 WBC 0.43 L* RBC 1.92 L Hgb 5.7 L* Hct 17.7 L* MCV 92.2 MCH 29.7 MCHC 32.2 RDW Std Deviation 52.5 H RDW Coeff of Kota 15.8 H Plt Count 16 L* MPV Immature Gran % (Auto) Neut % (Auto) Lymph % (Auto) Henry % (Auto) Eos % (Auto) Baso % (Auto) Neut # (Auto) < 0.50 L* Lymph # (Auto) Henry # (Auto) Eos # (Auto) Baso # (Auto) Immature Gran # (Auto) RBC Morphology Anisocytosis Present PT 11.0 INR 1.0 APTT 29 PTT Ratio 1.1 Sodium 138 Potassium 3.5 Chloride 106 Carbon Dioxide 26 Anion Gap 6 BUN 13 Creatinine 0.57 L Est Cr Clr Drug Dosing 140.6 eGFR 107.92 BUN/Creatinine Ratio 22.8 H Glucose 109 H Lactate Calcium 9.1 Total Bilirubin 0.6 AST 14 ALT 11 Alkaline Phosphatase 80 Total Protein 7.8 Albumin 3.9 Globulin 3.9 Albumin/Globulin Ratio 1.0 SARS-CoV-2 (PCR) NEGATIVE Influenza Type A (PCR) Negative Influenza Type B (PCR) Negative RSV (RT-PCR) Negative Blood Type O Positive Antibody Screen NEGATIVE Crossmatch See Detail 12/02/24 12/03/24 12/03/24 16:25 04:26 10:01 WBC 0.50 L* 0.51 L* RBC 2.36 L 2.35 L Hgb 7.1 L 7.1 L Hct 21.0 L 20.5 L* MCV 89.0 87.2 MCH 30.1 30.2 MCHC 33.8 34.6 RDW Std Deviation 50.2 H 49.1 H RDW Coeff of Kota 15.7 H 15.6 H Plt Count 14 L* 14 L* MPV Immature Gran % (Auto) 0.0 Neut % (Auto) 2.0 Lymph % (Auto) 94.1 Henry % (Auto) 3.9 Eos % (Auto) 0.0 Baso % (Auto) 0.0 Neut # (Auto) 0.01 L* Lymph # (Auto) 0.48 L Henry # (Auto) 0.02 L Eos # (Auto) 0.00 Baso # (Auto) 0.00 Immature Gran # (Auto) 0.00 L RBC Morphology Unremarkable Anisocytosis PT INR APTT PTT Ratio Sodium 138 Potassium 3.9 Chloride 106 Carbon Dioxide 28 Anion Gap 4 BUN 12 Creatinine 0.53 L Est Cr Clr Drug Dosing 151.2 eGFR 109.83 BUN/Creatinine Ratio 22.6 H Glucose 107 H Lactate 0.6 Calcium 8.7 Total Bilirubin AST ALT Alkaline Phosphatase Total Protein Albumin Globulin Albumin/Globulin Ratio SARS-CoV-2 (PCR) Influenza Type A (PCR) Influenza Type B (PCR) RSV (RT-PCR) Blood Type Antibody Screen Crossmatch 12/04/24 12/04/24 01:33 05:58 WBC 0.40 L* RBC 2.64 L Hgb 7.8 L 8.0 L Hct 22.2 L 23.1 L MCV 87.5 MCH 30.3 MCHC 34.6 RDW Std Deviation 49.1 H RDW Coeff of Kota 15.5 H Plt Count 16 L* MPV 12.4 Immature Gran % (Auto) Neut % (Auto) Lymph % (Auto) Henry % (Auto) Eos % (Auto) Baso % (Auto) Neut # (Auto) Lymph # (Auto) Henry # (Auto) Eos # (Auto) Baso # (Auto) Immature Gran # (Auto) RBC Morphology Anisocytosis PT INR APTT PTT Ratio Sodium 139 Potassium 3.6 Chloride 107 Carbon Dioxide 28 Anion Gap 4 BUN 12 Creatinine 0.48 L Est Cr Clr Drug Dosing 168.3 eGFR 112.49 BUN/Creatinine Ratio 25.0 H Glucose 107 H Lactate Calcium 8.7 Total Bilirubin AST ALT Alkaline Phosphatase Total Protein Albumin Globulin Albumin/Globulin Ratio SARS-CoV-2 (PCR) Influenza Type A (PCR) Influenza Type B (PCR) RSV (RT-PCR) Blood Type Antibody Screen Crossmatch Medications Administered Current Inpatient Medications Acetaminophen (Acetaminophen 325 Mg Tab) 650 mg PO Q6H PRN PRN Reason: pain/fever Stop: 01/02/25 04:57 Acyclovir (Acyclovir 400 Mg Tab) 400 mg PO BID [facility] Stop: 01/03/25 08:59 Last Admin: 12/04/24 09:37 Dose: 400 mg Escitalopram Oxalate (Escitalopram Oxalate 20 Mg Tab) 20 mg PO QAM [facility] Stop: 01/02/25 08:59 Last Admin: 12/04/24 08:30 Dose: 20 mg Cefepime HCl (Maxipime 2000mg) 2,000 mg in 20 mls @ 5 mls/min IV Q8H [facility]; Protocol Stop: 12/06/24 08:59 Lisinopril (Lisinopril 10 Mg Tab) 10 mg PO QAM [facility] Stop: 01/02/25 08:59 Last Admin: 12/04/24 08:30 Dose: 10 mg Multivitamins (Multivitamin Tab) 1 tab PO DAILY [facility] Stop: 01/02/25 08:59 Last Admin: 12/04/24 08:30 Dose: 1 tab Pantoprazole Sodium (Pantoprazole 40 Mg Tab) 40 mg PO QAM [facility] Stop: 01/02/25 08:59 Last Admin: 12/04/24 08:30 Dose: 40 mg PG Care Time/CCT Total # of Minutes Spent Total Time Spent with Patient: Total time spent is greater than 50% in coordination of care (as documented) at patient's floor/unit and/or counseling patient: Coding Level of Care Code 76218 SUB INP/OBS CARE 235MIN Diagnoses Myelodysplasia (myelodysplastic syndrome) D46.9 Pancytopenia D61.818 Time Spent (min) 35
[2024-12-04] MEDS: CEFEPIME 2000MG 2,000 MG/20 ML SYR IV SCH (11:00)
[2024-12-04] MEDS: ACETAMINOPHEN 325 MG TAB PO PRN (11:25)
[2024-12-04 11:47] VITALS: PULSE 87; RESP 18; TEMP 98.2
[2024-12-04 16:23] VITALS: BP 144/72; O2SAT 95
[2024-12-04 17:27] LABS: Hematocrit (blood only) 25.1 % (37.0-47.0); Hemoglobin 8.6 g/dl (12.0-16.0); Mean Corpuscular Hemoglobin 29.9 pg (25.0-34.0); Mean Corpuscular Volume 87.2 fL (80.0-100.0); Platelet Count 16 K/uL (130-400); RDW Standard Deviation 48.1 fL (36.4-46.3); Red Blood Count 2.88 M/uL (4.20-5.40); White Blood Count 0.54 K/ul (4.8-10.8)
[2024-12-04 17:35] LABS: ALC (manual) 0.53 K/uL (1.2-3.4); ANC (manual) 0.01 K/uL (1.4-6.5); Large Granular Lymph # (manua 0.21 K/uL; Large Granular Lymph % (manual) 39 %
--- NOTE | 2024-12-05 16:40 | Discharge Summary ---
Discharge Summary Date of Service December 04, 2024 Principal Dx & Hospital Course #1 = Principal Diagnosis (1) Myelodysplasia (myelodysplastic syndrome): (2) Pancytopenia: Bossman Jiang is a 54 yo patient with myelodysplastic syndrome. she's travel to [place] and developed fatigue, sore throat, congestion found to has pancytopenia, s/p transfusions. she's s/p bone marrow biopsy to rule out leuekemia transformation. she s/p blood transfusion and her H/H stable at 8.0--8.5. she has no melena, no hematochezia. she's requested to be dischage on 12/04/2024, she will has f/u with hematology on Monday (12/06/2024) for additional blood transfusion acute pancotyopenia hx of MDS s/p 2 units of pRBC no bloody stool; no melena if H/H continue to drop, then also transfuse platelet cefepime for prophylaxis acyclovir BID low bactereia diet GERD without esophagitis: Continue pantoprazole 40mg PO daily Anxiety: Continue Lexapro Hypertension: Continue lisinopril Notes For Next Care Provider f/u on pathology result f/u on repeat H/H and platelet level Admission HPI Per Admitting Provider 54 yo female with myelodysplatic syndrome, pancytopenia, neutropenia, went to [place] recently and had some upper respiratory symptoms. Patient came to the ED because she felt fatigued and had blood tests that should her levels were low. [facility] and has had multiuple bone marrows completed. Jessica had a recent transfusion on 11/19 Discharge Exam General: no acute distress HEENT:AT/NC Heart: normal s1; s2; RRR lung: CTA b/l; no wheezing abdomen: soft to touch; non-tender to palpation MSK: no edema Discharge Plan Discharge Items Patient Disposition: Home - Self-Care Reason For Visit: PANCYTOPENIA Discharge Diagnosis: pancytopenia, anemia, thrombocytopenia URI Condition on Discharge: Fair Activity: Per Instructions section Lifting: Gradually increase as tolerated Non-emergency contact: Primary Care Provider and Oncologist Call non-emergency contact if: your symptoms worsen, you have a fever and your rectal temperature is above 100.4 Follow-up/Referrals: Basedow,Coretta, DO [Primary Care Provider] - Diet: Regular and Other - See Diet Comment Diet Comment: avoid undercook food Addtl Attending Provider Instructions: you will f/u with your operator catalyst concentration and review the blood work and biopsy Pending Studies at Discharge: Yes Studies:: repeat CBC and CMP Stand-Alone Forms: My [facility], Smoking Cessation Medications and DC Order Prescriptions: New acyclovir 400 mg Tablet 400 mg PO BID 30 Days Qty: 60 0RF fluconazole 200 mg tablet 400 mg PO DAILY 21 Days Qty: 42 0RF Continued omeprazole 20 mg capsule,delayed release(DR/EC) 20 mg PO QAM Qty: 90 3RF (DME) Auto Titrating CPAP Misc See Rx Instructions .Route Qty: 1 0RF Rx Instructions: As directed multivitamin Tablet 1 tab PO DAILY lisinopril [Zestril] 10 mg tablet 10 mg PO QAM escitalopram oxalate [Lexapro] 20 mg tablet 20 mg PO QAM levofloxacin 500 mg tablet 500 mg PO DAILY Discharge Orders: Discharge Order (Routine); Ordered 12/04/24 Ordered By: Irena Solares/Other Patient Handouts: Neutropenia, Thrombocytopenia, Bone Marrow Aspiration and Biopsy, Bone Marrow Biopsy Admission Data Admit Date/Time: 12/02/24 17:03 Attending Provider: Irena Wood Admit Provider: Calos Hernandez Primary Care Provider: Kina Garcia Other Providers: Kae Hyman Other Interventions: Discharge Summary Assessment (RN) Last Done: 12/04/24 17:50 Hospital Stay Data Consultations 12/02/24 16:06 ED Decision to Admit Stat 12/02/24 17:11 Consult Hematology Routine Diagnostic Imagining Performed 12/03/24 09:13 IR bone marrow bx & asp Routine Pending Results Patient Have Any Pending Studies at Discharge: Yes Discharge Instructions Given to Patient (Per Discharging Provider) you will f/u with your operator catalyst concentration and review the blood work and biopsy Total Time Total Time Spent Total Time Spent (In Minutes): 35 minutes Coding Level of Care Code 72254 INP/OBS DISCH >30 MIN Diagnoses Myelodysplasia (myelodysplastic syndrome) D46.9 Pancytopenia D61.818 Time Spent (min) 35
--- NOTE | 2024-12-18 05:18 | Coding Query ---
PATHOLOGY To promote full compliance with coding requirements relating to patient care, physician participation is requested in all cases of certified medical coder uncertainty. Please assist us with the question(s) below: Please review the Pathology report and please document any relevant diagnosis(es) below: Diagnosis(es): acute leukemia, AML Thank you MALIA Davis [facility]
--- NOTE | 2024-12-24 14:35 | Communication Note ---
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 Kae Hyman, our specialist is suepct either myelodysplastic syndrome
== END 2024-12-04 18:44 | disposition home or self-care (01) | DRG 835 ==
LOC: ED 14:41 → SUATTDRO 17:03 → EDINP 17:03 → 2S 12-03 19:41

== ENCOUNTER 2025-03-09 17:32 | Inpatient (IN) ==
[2025-03-09] MEDS: FAMOTIDINE 20MG IV PUSH 20 MG/5 ML SYR IV STA (19:01)
[2025-03-09] MEDS: SODIUM CHLORIDE 0.9% 1,000 ML IV ONE (19:01)
[2025-03-09] MEDS: ONDANSETRON INJ 2 MG/ML 2 ML VIAL IV STA (19:01)
--- NOTE | 2025-03-09 19:14 | XRay Report ---
EXAM: Radiograph of the Chest 1 View INDICATION: Sepsis TECHNIQUE: Frontal view of the chest. COMPARISON: 01/02/2025 FINDINGS: Lungs and pleural spaces: No consolidation or pulmonary edema. No pleural effusion or pneumothorax. Heart: Shape and configuration within normal limits allowing for technique. Mediastinum: Normal contour. Bones/joints: No fracture, erosion or dislocation. Soft tissues: No abnormality noted. No radiopaque foreign body noted. Tubes, lines and devices: Right peripherally inserted central catheter (PICC) tip in the mid superior vena cava. Upper abdomen: No abnormality noted. IMPRESSION: 1. No acute cardiopulmonary disease. 2. Lines and tubes as above. ACT 112: N/A Electronically signed by Robyn Hart 03-09-2025 7:14 PM
[2025-03-09 19:27] LABS: Alanine Aminotransferase 33.0 U/L (7-52); Albumin Level 4.0 gm/dl (3.4-5.0); Alkaline Phosphatase 140.0 U/L (34-104); Anion Gap 8.0 (3-11); Bilirubin,Total 1.2 mg/dl (0.2-1.0); Blood Urea Nitrogen 15.0 mg/dl (6-23); Calcium 9.6 mg/dl (8.6-10.3); Carbon Dioxide 25.0 mmol/L (21-32); Chloride 103.0 mmol/L (98-107); Creatinine Clr Calc Pharmacy 93.8 ml/min; Glucose 144.0 mg/dl (70-99(Fasting)); Magnesium 1.5 mg/dl (1.7-2.4); Potassium 3.9 mmol/L (3.5-5.1); Sodium 136.0 mmol/L (136-145); Total Protein 7.5 gm/dl (6.0-8.3)
[2025-03-09 19:30] LABS: Hematocrit (blood only) 23.3 % (37.0-47.0); Hemoglobin 8.0 g/dl (12.0-16.0); Mean Corpuscular Hemoglobin 27.2 pg (25.0-34.0); Mean Corpuscular Volume 79.3 fL (80.0-100.0); Platelet Count 5 K/uL (130-400); RDW Standard Deviation 39.0 fL (36.4-46.3); Red Blood Count 2.94 M/uL (4.20-5.40); White Blood Count 0.09 K/ul (4.8-10.8)
[2025-03-09 19:39] LABS: INR 1.1 (0.9-1.1); Prothrombin Time 11.2 Seconds (9.0-12.0)
[2025-03-09 19:55] LABS: Appearance Urine Clear (Clear); Glucose Urine UA Negative (Negative)
--- NOTE | 2025-03-09 20:06 | Emergency Department Note ---
Impression & Plan Neutropenic fever, Pancytopenia, Thrombocytopenia, Hypomagnesemia, Elevated troponin ED Provider Note HISTORY OF PRESENT ILLNESS: Patient is a 54-year-old female presenting with fevers and bodyaches. Patient reports that she was feeling generally unwell today and took her temperature at home and it was 100.4. Reports she did not take any Tylenol prior to arrival in the ER. She just finished IV chemotherapy on 02/21/2025. She was then on 2 weeks of oral chemotherapy and finished her last dose on 02/26/2025. Reports she been doing well up until today. She denies any chest pain or shortness of breath. She does report nausea and had an episode of vomiting. She did vomit in the emergency department and reports that she feels better. However, her vomit was red in color. Patient reports she had cranberry juice earlier today. She denies any recent sick contact exposures. Denies any dysuria or hematuria. Denies any abdominal pain. ROS: as above PHYSICAL EXAM: Constitutional: Patient appears in no acute distress. HENT: Head: Normocephalic and atraumatic. Eyes: EOMI, PERRL Mouth/Throat: Mucous membranes moist. Neck: Trachea midline. Neck supple. Cardiovascular: RRR, No murmurs, rubs or gallops. Intact distal pulses. Pulmonary/Chest: No respiratory distress. Breath sounds clear and equal bilaterally. No wheezes or rales. Abdominal: Abdomen soft, no tenderness, rebound or guarding. Musculoskeletal: No edema, tenderness or deformity noted. Skin: Warm and dry. No rash, erythema, pallor or cyanosis Psychiatric: Appropriate mood and affect for situation. Neurological: Alert and keenly responsive. CN II-XII grossly intact, moving all extremities equally and fully. MDM: - Vitals signs showed tachycardia - History obtained via patient. History as above. - Chronic conditions affecting care: GERD; HTN; AML - Differential diagnoses include, but are not limited to: UTI; viral syndrome; pneumonia; bacteremia; dehydration - Order placed for continuous cardiac monitoring. At this time, monitor showed rate of 104 bpm with normal sinus rhythm, per my interpretation. - External medical records reviewed. Oncology/hematology note dated 02/05/2025 was reviewed. 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 Her counts had remained stable for a number of years but in October 2024 it was noted she become more neutropenic and had platelets of 50 with anemia. - EKG image interpreted by myself showed normal sinus rhythm. Rate tachycardic at 104 bpm. QT 334. No acute ischemic changes. - Laboratory workup interpreted by myself showed pancytopenia (WBC 0.09; Hgb 8.0; plt 5); neutropenia; normal PT/INR; normal lactate; stable electrolytes other than hypomagnesemia (Mg 1.5); elevated total bilirubin (1.2); elevated troponin (14.5); normal procalcitonin - UA negative for infection - CXR image reviewed interpreted by myself was negative for pneumonia, per my interpretation. - Viral respiratory panel negative - Patient given 1L NS, 4 mg IV zofran and 20 mg IV pepcid. Given 1g IV magnesium for electrolyte replacement - Discussed case with heme/onc midwife practitioner, Dr. Hyman, at 20:09. Recommended patient be treated as neutropenic fever and infectious workup he started and she be given cefepime. - Discussion was had with case manager specialist about patient's case and need for admission - Hospitalist consulted for admission. Requested that IV vancomycin also be added to the antibiotic workup. This was ordered. - [facility] ASSESSMENT AND PLAN: Diagnosis: Neutropenic fever; hypomagnesemia; elevated troponin; thrombocytopenia; pancytopenia Plan: Admit Past Med/Surg History Problem List (Updated 03/09/25 @ 22:52 by Amee Albright MD) Elevated troponin (Acute) Hypomagnesemia (Acute) Thrombocytopenia (Acute) Pancytopenia (Acute) Neutropenic fever (Acute) Antineoplastic chemotherapy induced pancytopenia Bacteremia Fusobacterium infection Neutropenic fever AML (acute myeloblastic leukemia) Fever (Acute) Symptomatic anemia (Acute) Pancytopenia (Acute) Thyroid nodule History of SCC (squamous cell carcinoma) of skin Vitamin D deficiency History of community acquired pneumonia 2021 Myelodysplasia (myelodysplastic syndrome) (Acute) Hyperglycemia LIS positive (Chronic) Anemia (Chronic) Arthralgia of multiple sites (Chronic) BMI 45.0-49.9, adult (Chronic) Cervicalgia (Chronic) Fatigue (Chronic) GERD without esophagitis (Chronic) Headache, menstrual migraine (Chronic) Thrombocytopenia (Chronic) Vitamin B12 deficiency (Chronic) Pancytopenia (Chronic) Hypertension (Chronic) Nocturnal hypoxemia (Chronic) Severe obstructive sleep apnea (Chronic) Kidney stones Anxiety Migraine Abnormality of left breast on screening mammography Medical History (Updated 03/09/25 @ 22:52 by Amee Albright MD) Hx of renal calculi passed on own Hx of migraines once per month Anxiety Myelodysplasia (myelodysplastic syndrome) has lab work monthly-- follows with Dr. Hyman at [facility] Cardiomegaly moderate on 10/2023 CXR work up in past, no issues Moderate obstructive sleep apnea cpap Myalgia and myositis GERD (gastroesophageal reflux disease) Rheumatoid arthritis no meds, occasional joint pain Hypertension Surgical History History of bone marrow biopsy x2 at [facility], 1 in office Hx of colonoscopy (06/28/24) [facility] Hx of wisdom tooth extraction History of surgery (benign) fatty tissue removed under left arm History of esophagogastroduodenoscopy (EGD) History of cholecystectomy Family History Mother Father Stroke syndrome Stroke Aunt Breast cancer Colorectal cancer Grandmother (Maternal) Ovarian cancer Denies family history of Prostate cancer Diabetes Myocardial infarction Lung cancer Hypertension Social History Smoking Status: Never smoker Second Hand Exposure: No; Do You Dip or Chew Tobacco: No; Hx Alcohol Use: No Hx Substance Use: No Preferred Language: Qatari Communication Ability: Effective Visual Impairment: No Limitations Hearing Ability: Normal Belt Worker Required: No Beliefs That Will Affect Care: None marital status: Current Living Situation: Alone Current Living Situation Comment: friend lives with pt current occupational status: employed 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 Feels Safe at Home: Yes Childhood Exposure to Second-Hand Smoke: Yes caffeine: Yes Dental Care, Regularly: Yes Physical Activity Frequency: 3-4 Times per Week Seatbelt Use: sometimes Sunscreen Use: Yes Assistive Devices: None Allergies Allergies Allergy/AdvReac Type Severity Reaction Status Date / Time No Known Allergies Allergy NONE Verified 03/07/25 09:07 Home Meds Home Medications Medication Instructions Recorded Confirmed omeprazole 20 mg capsule,delayed 20 mg PO DAILYBB 01/02/25 03/09/25 release posaconazole 100 mg tablet,delayed 300 mg PO QDL 01/02/25 03/09/25 release acyclovir 400 mg tablet 400 mg PO AMPM 03/09/25 03/09/25 levofloxacin 500 mg tablet 500 mg PO QPM 03/09/25 03/09/25 ondansetron HCl 8 mg tablet 8 mg PO UD PRN Nausea And Vomiting 03/09/25 03/09/25 potassium chloride 20 mEq 20 meq PO QAM 03/09/25 03/09/25 tablet,extended release Previous Rx's Medication Instructions Recorded Auto Titrating CPAP #1 ea 12/11/20 escitalopram oxalate 20 mg tablet 20 mg PO QAM #30 tabs 02/19/25 (Lexapro) Results & Data (ED) Vital Signs Vital Signs - 24 hr 03/09/25 17:41 03/09/25 18:05 03/09/25 18:18 Temperature 36.9 C Temperature Source Oral Pulse Rate 110 H 94 H Pulse Rate [Left Apical] 97 H Respiratory Rate 20 18 12 Respiratory Effort / Characteristics Non-Labored Spontaneous Respiratory Depth Normal Respiratory Pattern Regular Blood Pressure 164/78 H Blood Pressure [Left Arm] 130/73 Blood Pressure Mean 106 Blood Pressure Mean [Left Arm] 92 Pulse Oximetry 95 97 98 Oxygen Delivery Method Room Air Room Air Room Air Sepsis Recent Fever Within 48 Hours No Sepsis New/Unexplained Change in Mental Status N/A Sepsis Action Taken by Nursing No Action Required 03/09/25 18:21 03/09/25 18:35 03/09/25 18:42 Temperature Temperature Source Pulse Rate 97 H 95 H Pulse Rate [Left Apical] Respiratory Rate 15 Respiratory Effort / Characteristics Respiratory Depth Respiratory Pattern Blood Pressure Blood Pressure [Left Arm] 138/93 Blood Pressure Mean Blood Pressure Mean [Left Arm] 108 Pulse Oximetry 95 Oxygen Delivery Method Room Air Sepsis Recent Fever Within 48 Hours Sepsis New/Unexplained Change in Mental Status Sepsis Action Taken by Nursing 03/09/25 18:51 03/09/25 19:00 03/09/25 19:18 Temperature Temperature Source Pulse Rate 95 H 93 H Pulse Rate [Left Apical] Respiratory Rate 21 21 Respiratory Effort / Characteristics Respiratory Depth Respiratory Pattern Blood Pressure Blood Pressure [Left Arm] 152/82 H Blood Pressure Mean Blood Pressure Mean [Left Arm] 105 Pulse Oximetry 98 97 Oxygen Delivery Method Room Air Room Air Sepsis Recent Fever Within 48 Hours Sepsis New/Unexplained Change in Mental Status Sepsis Action Taken by Nursing 03/09/25 19:30 03/09/25 20:03 03/09/25 20:33 Temperature Temperature Source Pulse Rate 94 H 97 H 99 H Pulse Rate [Left Apical] Respiratory Rate 16 20 24 Respiratory Effort / Characteristics Respiratory Depth Respiratory Pattern Blood Pressure 140/77 136/71 133/70 Blood Pressure [Left Arm] Blood Pressure Mean 98 92 91 Blood Pressure Mean [Left Arm] Pulse Oximetry 98 99 97 Oxygen Delivery Method Room Air Room Air Room Air Sepsis Recent Fever Within 48 Hours Sepsis New/Unexplained Change in Mental Status Sepsis Action Taken by Nursing 03/09/25 21:00 03/09/25 21:12 03/09/25 22:01 Temperature Temperature Source Pulse Rate 103 H Pulse Rate [Left Apical] 103 H 103 H Respiratory Rate 24 21 20 Respiratory Effort / Characteristics Non-Labored Spontaneous Non-Labored Spontaneous Respiratory Depth Normal Normal Respiratory Pattern Regular Regular Blood Pressure 138/76 Blood Pressure [Left Arm] 139/79 134/79 Blood Pressure Mean 96 Blood Pressure Mean [Left Arm] 99 97 Pulse Oximetry 96 98 98 Oxygen Delivery Method Room Air Room Air Room Air Sepsis Recent Fever Within 48 Hours Sepsis New/Unexplained Change in Mental Status Sepsis Action Taken by Nursing 03/09/25 22:14 03/09/25 22:33 Temperature 37.4 C Temperature Source Oral Pulse Rate 104 H Pulse Rate [Left Apical] Respiratory Rate Respiratory Effort / Characteristics Respiratory Depth Respiratory Pattern Blood Pressure Blood Pressure [Left Arm] Blood Pressure Mean Blood Pressure Mean [Left Arm] Pulse Oximetry Oxygen Delivery Method Sepsis Recent Fever Within 48 Hours Sepsis New/Unexplained Change in Mental Status Sepsis Action Taken by Nursing Laboratory Data 03/09/25 17:56 03/09/25 17:56 Lab Results 03/09/25 03/09/25 03/09/25 Range/Units 17:56 19:12 19:16 WBC 0.09 L* (4.8-10.8) K/ul RBC 2.94 L (4.20-5.40) M/uL Hgb 8.0 L (12.0-16.0) g/dl Hct 23.3 L (37.0-47.0) % MCV 79.3 L (80.0-100.0) fL MCH 27.2 (25.0-34.0) pg MCHC 34.3 (32.0-36.0) g/dL RDW Std Deviation 39.0 (36.4-46.3) fL RDW Coeff of [place] 13.8 (11.5-14.5) % Plt Count 5 L* (130-400) K/uL Neut # (Auto) < 0.50 L* (1.40-6.50) K/uL PT 11.2 (9.0-12.0) Seconds INR 1.1 (0.9-1.1) Sodium 136 (136-145) mmol/L Potassium 3.9 (3.5-5.1) mmol/L Chloride 103 (98-107) mmol/L Carbon Dioxide 25 (21-32) mmol/L Anion Gap 8 (3-11) BUN 15 (6-23) mg/dl Creatinine 0.77 (0.6-1.2) mg/dl Est Cr Clr Drug Dosing 93.8 ml/min eGFR 91.61 BUN/Creatinine Ratio 19.5 (10-20) Glucose 144 H (70-99(Fasting)) mg/dl Lactate 1.1 (0.4-2.0) mmol/L Calcium 9.6 (8.6-10.3) mg/dl Magnesium 1.5 L (1.7-2.4) mg/dl Total Bilirubin 1.2 H (0.2-1.0) mg/dl Direct Bilirubin 0.3 H (0-0.2) mg/dl AST 25 (13-39) U/L ALT 33 (7-52) U/L Alkaline Phosphatase 140 H (34-104) U/L Troponin I High Sens 14.5 H (0-14) pg/ml Total Protein 7.5 (6.0-8.3) gm/dl Albumin 4.0 (3.4-5.0) gm/dl Procalcitonin 0.19 (0-0.5) ng/ml Urine Color Urine Appearance (Clear) Urine pH (4.5-7.5) Ur Specific [place] (1.000-1.030) Urine Protein (Negative) Urine Glucose (UA) (Negative) Urine Ketones (Negative) Urine Blood (Negative) Urine Nitrite (Negative) Urine Bilirubin (Negative) Urine Urobilinogen (Negative) Ur Leukocyte Esterase (Negative) Urine Comment Adenovirus (PCR) Not Detected ([place]atected) B. pertussis DNA (PCR) Not Detected (NotDetected) B.parapertussis DNA PCR Not Detected (NotDetected) C. pneumoniae DNA (PCR) Not Detected (NotDetected) Coronavirus OC43 (PCR) Not Detected (NotDetected) Coronavirus HKU1 (PCR) Not Detected (NotDetected) Coronavirus 229E (PCR) Not Detected (NotDetected) SARS-CoV-2 (PCR) Not Detected (NotDetected) Coronavirus NL63 (PCR) Not Detected (NotDetected) Human Metapneumovir PCR Not Detected (NotDetected) Influenza Type A (PCR) Not Detected (NotDetected) Influenza Type B (PCR) Not Detected (NotDetected) M. pneumoniae (PCR) Not Detected (NotDetected) Parainfluenza 1 (PCR) Not Detected (NotDetected) Parainfluenza 2 (PCR) Not Detected (NotDetected) Parainfluenza 3 (PCR) Not Detected (NotDetected) Parainfluenza 4 (PCR) Not Detected (NotDetected) RSV (PCR) Not Detected (NotDetected) Entero/Rhino (PCR) Not Detected (NotDetected) Blood Type O Positive Antibody Screen NEGATIVE 03/09/25 Range/Units 19:45 WBC (4.8-10.8) K/ul RBC (4.20-5.40) M/uL Hgb (12.0-16.0) g/dl Hct (37.0-47.0) % MCV (80.0-100.0) fL MCH (25.0-34.0) pg MCHC (32.0-36.0) g/dL RDW Std Deviation (36.4-46.3) fL RDW Coeff of [place] (11.5-14.5) % Plt Count (130-400) K/uL Neut # (Auto) (1.40-6.50) K/uL PT (9.0-12.0) Seconds INR (0.9-1.1) Sodium (136-145) mmol/L Potassium (3.5-5.1) mmol/L Chloride (98-107) mmol/L Carbon Dioxide (21-32) mmol/L Anion Gap (3-11) BUN (6-23) mg/dl Creatinine (0.6-1.2) mg/dl Est Cr Clr Drug Dosing ml/min eGFR BUN/Creatinine Ratio (10-20) Glucose (70-99(Fasting)) mg/dl Lactate (0.4-2.0) mmol/L Calcium (8.6-10.3) mg/dl Magnesium (1.7-2.4) mg/dl Total Bilirubin (0.2-1.0) mg/dl Direct Bilirubin (0-0.2) mg/dl AST (13-39) U/L ALT (7-52) U/L Alkaline Phosphatase (34-104) U/L Troponin I High Sens (0-14) pg/ml Total Protein (6.0-8.3) gm/dl Albumin (3.4-5.0) gm/dl Procalcitonin (0-0.5) ng/ml Urine Color Yellow Urine Appearance Clear (Clear) Urine pH 7.0 (4.5-7.5) Ur Specific [place] 1.018 (1.000-1.030) Urine Protein Negative (Negative) Urine Glucose (UA) Negative (Negative) Urine Ketones Negative (Negative) Urine Blood Negative (Negative) Urine Nitrite Negative (Negative) Urine Bilirubin Negative (Negative) Urine Urobilinogen Negative (Negative) Ur Leukocyte Esterase Negative (Negative) Urine Comment Adenovirus (PCR) (NotDetected) B. pertussis DNA (PCR) (NotDetected) B.parapertussis DNA PCR (NotDetected) C. pneumoniae DNA (PCR) (NotDetected) Coronavirus OC43 (PCR) (NotDetected) Coronavirus HKU1 (PCR) (NotDetected) Coronavirus 229E (PCR) (NotDetected) SARS-CoV-2 (PCR) (NotDetected) Coronavirus NL63 (PCR) (NotDetected) Human Metapneumovir PCR (NotDetected) Influenza Type A (PCR) (NotDetected) Influenza Type B (PCR) (NotDetected) M. pneumoniae (PCR) (NotDetected) Parainfluenza 1 (PCR) (NotDetected) Parainfluenza 2 (PCR) (NotDetected) Parainfluenza 3 (PCR) (NotDetected) Parainfluenza 4 (PCR) (NotDetected) RSV (PCR) (NotDetected) Entero/Rhino (PCR) (NotDetected) Blood Type Antibody Screen Administered Medications Vancomycin HCl 2,000 mg/ (Sodium Chloride) 540 mls @ 200 mls/hr IV NOW ONE Stop: 03/09/25 23:50 Last Admin: 03/09/25 22:01 Dose: 200 mls/hr Documented By: AUSTYN Magnesium Sulfate/Dextrose (Magnesium Sulfate / D5w) 1 gm in 100 mls @ 50 mls/hr IV Q2H JAYLENE Stop: 03/10/25 01:59 Last Admin: 03/09/25 22:01 Dose: 50 mls/hr Documented By: AUSTYN Discontinued Medications Sodium Chloride (Nss) 1,000 mls @ 999 mls/hr IV .Q1H1M ONE Stop: 03/09/25 19:54 Last Infusion: 03/09/25 20:15 Dose: Infused Documented By: Admin: 03/09/25 19:01 Dose: 999 mls/hr Documented By: AUSTYN Famotidine (Pepcid 20mg Iv Push) 20 mg in 5 mls @ 2.5 mls/min IV NOW STA Stop: 03/09/25 18:55 Last Admin: 03/09/25 19:01 Dose: 2.5 mls/min Documented By: AUSTYN Cefepime HCl (Maxipime 2000mg) 2,000 mg in 20 mls @ 5 mls/min IV NOW STA; Protocol Stop: 03/09/25 20:53 Last Admin: 03/09/25 21:06 Dose: 5 mls/min Documented By: AUSTYN Pantoprazole Sodium (Protonix) 40 mg in 10 mls @ 5 mls/min IV NOW ONE Stop: 03/09/25 21:54 Last Admin: 03/09/25 22:01 Dose: 5 mls/min Documented By: AUSTYN Ondansetron HCl (Ondansetron Inj 2 Mg/Ml 2 Ml Vial) 4 mg IV NOW STA Stop: 03/09/25 18:55 Last Admin: 03/09/25 19:01 Dose: 4 mg Documented By: AUSTYN Imaging Data Radiologist's Impression: Chest X-Ray 03/09/25 18:54 EXAM: Radiograph of the Chest 1 View INDICATION: Sepsis TECHNIQUE: Frontal view of the chest. COMPARISON: 01/02/2025 FINDINGS: Lungs and pleural spaces: No consolidation or pulmonary edema. No pleural effusion or pneumothorax. Heart: Shape and configuration within normal limits allowing for technique. Mediastinum: Normal contour. Bones/joints: No fracture, erosion or dislocation. Soft tissues: No abnormality noted. No radiopaque foreign body noted. Tubes, lines and devices: Right peripherally inserted central catheter (PICC) tip in the mid superior vena cava. Upper abdomen: No abnormality noted. IMPRESSION: 1. No acute cardiopulmonary disease. 2. Lines and tubes as above. ACT 112: N/A Electronically signed by Robyn Hart 03-09-2025 7:14 PM Discharge Plan Visit Data Chief Complaint: Fever Stated Complaint: HAVE LUKEMIA RUNNING LOW GRADE FEVER ED Provider: Amee Albright Discharge Problem: Neutropenic fever, Pancytopenia, Thrombocytopenia, Hypomagnesemia, Elevated troponin Patient Disposition: Admitted As Inpatient Condition: Fair Forms Stand Alone Forms: [facility] Prescriptions Prescriptions: No Action escitalopram oxalate [Lexapro] 20 mg tablet 20 mg PO QAM Qty: 30 0RF (DME) Auto Titrating CPAP Misc See Rx Instructions .Route Qty: 1 0RF Rx Instructions: As directed acyclovir 400 mg tablet 400 mg PO AMPM potassium chloride 20 mEq tablet extended release 20 meq PO QAM ondansetron HCl 8 mg tablet 8 mg PO UD PRN (Reason: Nausea And Vomiting) levofloxacin 500 mg tablet 500 mg PO QPM posaconazole 100 mg tablet,delayed release (DR/EC) 300 mg PO QDL Rx Instructions: WITH FOOD omeprazole 20 mg capsule,delayed release(DR/EC) 20 mg PO DAILYBB Referrals Referrals: Kina Garcia DO [Primary Care Provider] -
[2025-03-09 20:21] LABS: Chlamydia pneumoniae PCR Not Detected (NotDetected); Coronavirus 229E PCR Not Detected (NotDetected); Coronavirus CoV-2 (COVID19)PCR Not Detected (NotDetected); Coronavirus HKU1 PCR Not Detected (NotDetected); Coronavirus NL63 PCR Not Detected (NotDetected); Coronavirus OC43PCR Not Detected (NotDetected); Human Metapneumovirus PCR Not Detected (NotDetected); Parainfluenza Virus 1 PCR Not Detected (NotDetected); Parainfluenza Virus 2 PCR Not Detected (NotDetected); Parainfluenza Virus 3 PCR Not Detected (NotDetected); Parainfluenza Virus 4 PCR Not Detected (NotDetected); Respiratory Syncytial VirusPCR Not Detected (NotDetected); Rhinovirus/Enterovirus PCR Not Detected (NotDetected)
[2025-03-09] MEDS: CEFEPIME 2000MG 2,000 MG/20 ML SYR IV STA (21:06)
[2025-03-09] MEDS ORDERED: VANCOMYCIN CONSULT ACTIVE PRN (21:09)
[2025-03-09] MEDS: PANTOprazole 40 MG/10 ML SYR IV ONE (22:01)
[2025-03-09] MEDS: MAGNESIUM SULFATE / D5W 1 GM/100 ML BAG IV SCH (22:01)
[2025-03-09] MEDS: VANCOMYCIN HCL 2,000 MG in SODIUM CHLORIDE 0.9% 500 ML IV ONE (22:01)
--- NOTE | 2025-03-09 22:18 | History & Physical Report ---
Date of Service March 09, 2025 Assessment & Plan (1) Neutropenic fever: (2) Antineoplastic chemotherapy induced pancytopenia: (3) AML (acute myeloblastic leukemia): (4) Hypomagnesemia: Plan The patient is a 54-year-old female with a past medical history including antineoplastic chemotherapy induced pancytopenia, neutropenic fever, AML, vitamin D deficiency, history of MDS, GERD without esophagitis, severe NIKHIL on CPAP, anxiety, and migraine. For her AML, she underwent underwent induction and then IV and oral chemotherapy, with last treatment on 02/26/2025. Her counts have been stable but persistently low. Today she started to feel sore all over, and had some intermittent nausea. She checked a temperature it was 100.3 F. She presents to the emergency department for assessment of neutropenic fever. Chest x-ray was negative, respiratory bio fire test negative, urinalysis negative. Emergency department spoke with her oncologist Dr. Hyman, who recommended admission and treatment for neutropenic fever. The patient was then referred for evaluation for admission to [facility]. Neutropenic fever/antineoplastic chemotherapy induced pancytopenia/AML-- From the ED she received the following: Zofran 4 mg IV, normal saline 1 L fluid bolus, famotidine 20 mg IV, cefepime 2 g IV. Follow-up blood cultures and urine cultures No specific symptoms referable to pulmonary, GI or urinary systems, or others. She has faint erythema on the buttocks bilaterally Follow all cultures and sensitivities Empiric treatment with vancomycin IV and cefepime IV Continue chronic suppressive therapy with levofloxacin, posaconazole, and acyclovir. Consult oncology Dr. Hyman Neutropenic precautions Acetaminophen 1 g IV every 8 hours as needed for mild pain or fever Compazine 10 mg IV every 6 hours as needed Serial CBC with differential, chemistry profile and magnesium levels GERD- Change oral omeprazole to pantoprazole 40 mg IV now and then every morning Hypomagnesemia- Magnesium 1.5 on admission Give magnesium sulfate 2 g IV, and recheck laboratories in a.m. Moderately severe NIKHIL- Patient uses auto titrating CPAP at home. She does not have her CPAP with her at this time. Will place her on nasal cannula 2 L oxygen at bedtime if needed. Anxiety- Continue escitalopram 20 mg daily Rash- Likely being aggravated by her using Neosporin topically. Would stop Neosporin, and if not resolved, would consult wound care at that time History of Present Illness Chief Complaint: The patient presents to the emergency department with complaint of feeling sore earlier in the afternoon, when she checked a temperature at home was 100.3 F. She has been having some nausea without vomiting. She referral reports her last chemotherapy for AML was on 02/26. She denies any recent travels or sick exposures. She denies any questionable food intake. She has continued to take all her prophylactic medications as directed. Primary Care Provider: Kina Garcia DO The patient is a 54-year-old female with a past medical history including antineoplastic chemotherapy induced pancytopenia, neutropenic fever, AML, vitamin D deficiency, history of MDS, GERD without esophagitis, severe NIKHIL on CPAP, anxiety, and migraine. For her AML, she underwent underwent induction and then IV and oral chemotherapy, with last treatment on 02/26/2025. Her counts have been stable but persistently low. Today she started to feel sore all over, and had some intermittent nausea. She checked a temperature it was 100.3 F. She presents to the emergency department for assessment of neutropenic fever. Chest x-ray was negative, respiratory bio fire test negative, urinalysis negative. Emergency department spoke with her oncologist Dr. Hyman, who recommended admission and treatment for neutropenic fever. The patient was then referred for evaluation for admission to [facility]. Allergies Allergy/AdvReac Type Severity Reaction Status Date / Time No Known Allergies Allergy NONE Verified 03/07/25 09:07 Home Medications Medication Instructions Recorded Confirmed Type Auto Titrating CPAP #1 ea 12/11/20 03/09/25 Rx omeprazole 20 mg capsule,delayed 20 mg PO DAILYBB 01/02/25 03/09/25 History release posaconazole 100 mg tablet,delayed 300 mg PO QDL 01/02/25 03/09/25 History release escitalopram oxalate 20 mg tablet 20 mg PO QAM #30 tabs 02/19/25 03/09/25 Rx (Lexapro) acyclovir 400 mg tablet 400 mg PO AMPM 03/09/25 03/09/25 History levofloxacin 500 mg tablet 500 mg PO QPM 03/09/25 03/09/25 History ondansetron HCl 8 mg tablet 8 mg PO UD PRN Nausea And Vomiting 03/09/25 03/09/25 History potassium chloride 20 mEq 20 meq PO QAM 03/09/25 03/09/25 History tablet,extended release Past Med/Surg History Problem List (Updated 03/09/25 @ 22:52 by Amee Albright MD) Elevated troponin (Acute) Hypomagnesemia (Acute) Thrombocytopenia (Acute) Pancytopenia (Acute) Neutropenic fever (Acute) Antineoplastic chemotherapy induced pancytopenia Bacteremia Fusobacterium infection Neutropenic fever AML (acute myeloblastic leukemia) Fever (Acute) Symptomatic anemia (Acute) Pancytopenia (Acute) Thyroid nodule History of SCC (squamous cell carcinoma) of skin Vitamin D deficiency History of community acquired pneumonia 2021 Myelodysplasia (myelodysplastic syndrome) (Acute) Hyperglycemia LIS positive (Chronic) Anemia (Chronic) Arthralgia of multiple sites (Chronic) BMI 45.0-49.9, adult (Chronic) Cervicalgia (Chronic) Fatigue (Chronic) GERD without esophagitis (Chronic) Headache, menstrual migraine (Chronic) Thrombocytopenia (Chronic) Vitamin B12 deficiency (Chronic) Pancytopenia (Chronic) Hypertension (Chronic) Nocturnal hypoxemia (Chronic) Severe obstructive sleep apnea (Chronic) Kidney stones Anxiety Migraine Abnormality of left breast on screening mammography Medical History (Updated 03/09/25 @ 22:52 by Amee Albright MD) Hx of renal calculi passed on own Hx of migraines once per month Anxiety Myelodysplasia (myelodysplastic syndrome) has lab work monthly-- follows with Dr. Hyman at [facility] Cardiomegaly moderate on 10/2023 CXR work up in past, no issues Moderate obstructive sleep apnea cpap Myalgia and myositis GERD (gastroesophageal reflux disease) Rheumatoid arthritis no meds, occasional joint pain Hypertension Surgical History History of bone marrow biopsy x2 at [facility], 1 in office Hx of colonoscopy (06/28/24) [facility] Hx of wisdom tooth extraction History of surgery (benign) fatty tissue removed under left arm History of esophagogastroduodenoscopy (EGD) History of cholecystectomy Family History Mother Father Stroke syndrome Stroke Aunt Breast cancer Colorectal cancer Grandmother (Maternal) Ovarian cancer Denies family history of Prostate cancer Diabetes Myocardial infarction Lung cancer Hypertension Social History Smoking Status: Never smoker Second Hand Exposure: No; Do You Dip or Chew Tobacco: No; Hx Alcohol Use: No Hx Substance Use: No Preferred Language: [place] Communication Ability: Effective Visual Impairment: No Limitations Hearing Ability: Normal 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 Beliefs That Will Affect Care: None marital status: Current Living Situation: Alone Current Living Situation Comment: friend lives with pt current occupational status: employed 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 Feels Safe at Home: Yes Childhood Exposure to Second-Hand Smoke: Yes caffeine: Yes Dental Care, Regularly: Yes Physical Activity Frequency: 3-4 Times per Week Seatbelt Use: sometimes Sunscreen Use: Yes Assistive Devices: None Review of Systems Review of Systems: The patient denies chest pain, palpitations, shortness of breath, dyspnea on exertion, cough, lower extremity swelling, sore throat, chills, sweats, vomiting, diarrhea , constipation, abdominal pain, pelvic pain, blood in urine or stool, dysuria, urinary frequency or urgency, lightheadedness, dizziness, headache, memory loss, loss of consciousness, abnormal bruising or bleeding, imbalance, focal or generalized weakness, numbness or tingling in arms or legs, generalized arthralgias or myalgias, back or neck pain, or night sweats. The review of systems is otherwise negative other than for that already noted above, and at least 10 systems have been reviewed. Physical Exam Physical Exam: The patient is awake, alert and oriented 3, well developed and well nourished, normocephalic and atraumatic, lying in bed and in no acute distress. HEENT--PERRL, EOMI, mucous membranes and oropharynx mildly dry. No thrush Neck--supple. No JVD. No bruits. Thyroid normal, trachea midline, no adenopathy. Heart--normal S1 and S2. No murmurs, rubs or gallops. Lungs--clear bilaterally, no respiratory distress, no accessory muscle use. Abdomen--normal bowel sounds and soft. Nontender. Nondistended, no hernias or masses, no organomegaly. Extremities--no cyanosis or clubbing. No edema. There are good distal pulses b/l. Dermatologic--mild rash buttock bilaterally. Nonvesicular, nontender. Neurologic--cranial nerves II through XII grossly intact. Rheumatologic--normal range of motion. Psychiatric--normal affect. Results & Data Results & Data Vital Signs (Past 12 Hours) Vital Signs Temp Pulse Pulse Resp BP BP Pulse Ox 03/09/25 22:14 37.4 C 03/09/25 22:01 103 H 20 134/79 98 03/09/25 21:12 103 H 21 139/79 98 03/09/25 21:00 103 H 24 138/76 96 03/09/25 20:33 99 H 24 133/70 97 03/09/25 20:03 97 H 20 136/71 99 03/09/25 19:30 94 H 16 140/77 98 03/09/25 19:18 93 H 21 97 03/09/25 19:00 152/82 H 03/09/25 18:51 95 H 21 98 03/09/25 18:42 95 H 03/09/25 18:35 138/93 03/09/25 18:21 97 H 15 95 03/09/25 18:18 94 H 12 98 03/09/25 18:05 97 H 18 130/73 97 03/09/25 17:41 36.9 C 110 H 20 164/78 H 95 O2 Del Method 03/09/25 22:14 03/09/25 22:01 Room Air 03/09/25 21:12 Room Air 03/09/25 21:00 Room Air 03/09/25 20:33 Room Air 03/09/25 20:03 Room Air 03/09/25 19:30 Room Air 03/09/25 19:18 Room Air 03/09/25 19:00 03/09/25 18:51 Room Air 03/09/25 18:42 03/09/25 18:35 03/09/25 18:21 Room Air 03/09/25 18:18 Room Air 03/09/25 18:05 Room Air 03/09/25 17:41 Room Air Laboratory Results Laboratory Results WBC 0.09 K/ul (4.8-10.8) L* 03/09/25 17:56 RBC 2.94 M/uL (4.20-5.40) L 03/09/25 17:56 Hgb 8.0 g/dl (12.0-16.0) L 03/09/25 17:56 Hct 23.3 % (37.0-47.0) L 03/09/25 17:56 MCV 79.3 fL (80.0-100.0) L 03/09/25 17:56 MCH 27.2 pg (25.0-34.0) 03/09/25 17:56 MCHC 34.3 g/dL (32.0-36.0) 03/09/25 17:56 RDW Std Deviation 39.0 fL (36.4-46.3) 03/09/25 17:56 RDW Coeff of [place] 13.8 % (11.5-14.5) 03/09/25 17:56 Plt Count 5 K/uL (130-400) L* 03/09/25 17:56 Neut # (Auto) < 0.50 K/uL (1.40-6.50) L* 03/09/25 17:56 PT 11.2 Seconds (9.0-12.0) 03/09/25 17:56 INR 1.1 (0.9-1.1) 03/09/25 17:56 Sodium 136 mmol/L (136-145) 03/09/25 17:56 Potassium 3.9 mmol/L (3.5-5.1) 03/09/25 17:56 Chloride 103 mmol/L (98-107) 03/09/25 17:56 Carbon Dioxide 25 mmol/L (21-32) 03/09/25 17:56 Anion Gap 8 (3-11) 03/09/25 17:56 BUN 15 mg/dl (6-23) 03/09/25 17:56 Creatinine 0.77 mg/dl (0.6-1.2) 03/09/25 17:56 Est Cr Clr Drug Dosing 93.8 ml/min 03/09/25 17:56 eGFR 91.61 03/09/25 17:56 BUN/Creatinine Ratio 19.5 (10-20) 03/09/25 17:56 Glucose 144 mg/dl (70-99(Fasting)) H 03/09/25 17:56 Lactate 1.1 mmol/L (0.4-2.0) 03/09/25 19:12 Calcium 9.6 mg/dl (8.6-10.3) 03/09/25 17:56 Magnesium 1.5 mg/dl (1.7-2.4) L 03/09/25 17:56 Total Bilirubin 1.2 mg/dl (0.2-1.0) H 03/09/25 17:56 Direct Bilirubin 0.3 mg/dl (0-0.2) H 03/09/25 17:56 AST 25 U/L (13-39) 03/09/25 17:56 ALT 33 U/L (7-52) 03/09/25 17:56 Alkaline Phosphatase 140 U/L (34-104) H 03/09/25 17:56 Troponin I High Sens 14.5 pg/ml (0-14) H 03/09/25 17:56 Total Protein 7.5 gm/dl (6.0-8.3) 03/09/25 17:56 Albumin 4.0 gm/dl (3.4-5.0) 03/09/25 17:56 Procalcitonin 0.19 ng/ml (0-0.5) 03/09/25 17:56 Urine Color Yellow 03/09/25 19:45 Urine Appearance Clear (Clear) 03/09/25 19:45 Urine pH 7.0 (4.5-7.5) 03/09/25 19:45 Ur Specific [place] 1.018 (1.000-1.030) 03/09/25 19:45 Urine Protein Negative (Negative) 03/09/25 19:45 Urine Glucose (UA) Negative (Negative) 03/09/25 19:45 Urine Ketones Negative (Negative) 03/09/25 19:45 Urine Blood Negative (Negative) 03/09/25 19:45 Urine Nitrite Negative (Negative) 03/09/25 19:45 Urine Bilirubin Negative (Negative) 03/09/25 19:45 Urine Urobilinogen Negative (Negative) 03/09/25 19:45 Ur Leukocyte Esterase Negative (Negative) 03/09/25 19:45 Urine Comment 03/09/25 19:45 Adenovirus (PCR) Not Detected (NotDetected) 03/09/25 19:16 B. pertussis DNA (PCR) Not Detected (NotDetected) 03/09/25 19:16 B.parapertussis DNA PCR Not Detected (NotDetected) 03/09/25 19:16 C. pneumoniae DNA (PCR) Not Detected (NotDetected) 03/09/25 19:16 Coronavirus OC43 (PCR) Not Detected (NotDetected) 03/09/25 19:16 Coronavirus HKU1 (PCR) Not Detected (NotDetected) 03/09/25 19:16 Coronavirus 229E (PCR) Not Detected (NotDetected) 03/09/25 19:16 SARS-CoV-2 (PCR) Not Detected (NotDetected) 03/09/25 19:16 Coronavirus NL63 (PCR) Not Detected (NotDetected) 03/09/25 19:16 Human Metapneumovir PCR Not Detected (NotDetected) 03/09/25 19:16 Influenza Type A (PCR) Not Detected (NotDetected) 03/09/25 19:16 Influenza Type B (PCR) Not Detected (NotDetected) 03/09/25 19:16 M. pneumoniae (PCR) Not Detected (NotDetected) 03/09/25 19:16 Parainfluenza 1 (PCR) Not Detected (NotDetected) 03/09/25 19:16 Parainfluenza 2 (PCR) Not Detected (NotDetected) 03/09/25 19:16 Parainfluenza 3 (PCR) Not Detected (NotDetected) 03/09/25 19:16 Parainfluenza 4 (PCR) Not Detected (NotDetected) 03/09/25 19:16 RSV (PCR) Not Detected (NotDetected) 03/09/25 19:16 Entero/Rhino (PCR) Not Detected (NotDetected) 03/09/25 19:16 Blood Type O Positive 03/09/25 19:12 Antibody Screen NEGATIVE 03/09/25 19:12 Impressions Chest X-Ray 03/09/25 18:54 EXAM: Radiograph of the Chest 1 View INDICATION: Sepsis TECHNIQUE: Frontal view of the chest. COMPARISON: 01/02/2025 FINDINGS: Lungs and pleural spaces: No consolidation or pulmonary edema. No pleural effusion or pneumothorax. Heart: Shape and configuration within normal limits allowing for technique. Mediastinum: Normal contour. Bones/joints: No fracture, erosion or dislocation. Soft tissues: No abnormality noted. No radiopaque foreign body noted. Tubes, lines and devices: Right peripherally inserted central catheter (PICC) tip in the mid superior vena cava. Upper abdomen: No abnormality noted. IMPRESSION: 1. No acute cardiopulmonary disease. 2. Lines and tubes as above. ACT 112: N/A Electronically signed by Robyn Hart 03-09-2025 7:14 PM Code Status & VTE Plan Code Status Full code VTE Prophylaxis Plan VTE Prophylaxis will be ordered: Yes PG Care Time/CCT Total # of Minutes Spent Total Time Spent with Patient: Total time spent is greater than 50% in coordination of care (as documented) at patient's floor/unit and/or counseling patient: Coding Level of Care Code 63023 INT INP/OBS CARE 3/75MIN Diagnoses Neutropenic fever D70.9; R50.81 Antineoplastic chemotherapy induced pancytopenia D61.810; T45.1X5A AML (acute myeloblastic leukemia) C92.00 Hypomagnesemia E83.42
[2025-03-09] MEDS: ACETAMINOPHEN 1,000 MG/100 ML VIAL IV PRN (23:39)
[2025-03-10] MEDS ORDERED: VANCOMYCIN CONSULT ACTIVE PRN (01:00)
--- NOTE | 2025-03-10 04:54 | Pharmacy Report ---
Pharmacy PK ABX Note - Date of Service March 10, 2025 - Assessment and Plan Assessment 55 year old F receiving vancomycin/cefepime for treatment of neutropenic fever unknown source, erythema on bilateral buttocks noted. She is pancytopenic and also on chronic suppressive therapy with acyclovir, posaconazole (non- formulary), and Levaquin. Pertinent microbiologic data includes: blood cultures pending. Day # 1 of antimicrobial therapy. Plan Vancomycin * Loading dose: 2000 mg IV x 1 * Maintenance dose: 750 mg IV every 8 hours * Regimen is predicted to achieve target AUC/BUCK of 400-600 mg/L.hr * Trough level ordered for: 03/11/25 @0730 Pharmacy will continue to follow and will adjust dose/frequency as necessary. Thank you. Pharmacy has transitioned to AUC monitoring for vancomycin. AUC/BUCK is the preferred PK/PD target and is associated with decreased risk of nephrotoxicity compared to traditional trough targets.
[2025-03-10] MEDS: CEFEPIME 2000MG 2,000 MG/20 ML SYR IV SCH (05:54)
[2025-03-10] MEDS: PROCHLORPERAZINE 10 MG in SYRINGE 8 ML IV PRN (06:17)
--- NOTE | 2025-03-10 08:31 | Hospitalist Progress Note ---
Date of Service March 10, 2025 Assessment & Plan (1) Neutropenic fever: (2) Antineoplastic chemotherapy induced pancytopenia: (3) AML (acute myeloblastic leukemia): (4) Hypomagnesemia: Plan The pt is a 54y/o F w/ a PMHx significant for antineoplastic chemotherapy induced pancytopenia, neutropenic fever, AML, vitamin D deficiency, history of MDS, GERD w/out esophagitis, severe NIKHIL on CPAP, anxiety, and migraine who presents with fever and soreness #Neutropenic fever/antineoplastic chemotherapy induced pancytopenia/AML - Most recent induction + IV and oral chemo on 02/26/2025; Chest x-ray was negative, respiratory bio fire test negative, urinalysis negative in ED. Echo 03/10 revealed WNL LV systolic function w/ no wall motion abnormalities EF of 60-65%. No significant valvular pathology or vegetation. No significant changes from 07/15/22 -Consult Oncology -Consult ID -2 bags packed cells, 2 bags platelets; at recommendation of Dr Hyman -BC pending; preliminary gram + cocci -Continue IV Vancomycin -START IV Ceftriaxone -STOP IV Cefepime -Continue chronic suppressive therapy: levofloxacin, posaconazole, and acyclovir - pt to bring in posaconazole (not on formulary) -Neutropenic precautions -Acetaminophen prn for mild pain/fever -Zofran prn [place]; Compazine prn nausea (secondary) -CBC w/ diff, CMP, Magnesium in AM -Repeat BC today and in AM #Hypomagnesemia - 1.5 on admission -Trend w/ AM labs #HTN - no acute concerns; Continue Lisinopril 10mg #GERD - no acute concerns -HOLD omeprazole -SWITCH from IV Pantoprazole to PO #Moderately severe NIKHIL - CPAP at home; did not bring it -CPAP HS #Anxiety - no acute concerns; Continue escitalopram 20 mg daily #Rash on buttock - no signs of infection; suspect related to dry skin Dispo: Continue Med/Tele - awaiting clear BC + ID consult VTE proph: SCDs, encourage ambulation Admission and Anticipated Discharge Date Admission Date: March 09, 2025 Subjective Pt was sitting to bed this AM in NAD, family member at bedside. Pt states that she is feeling more fatigued this am and notes that she has been feeling a bit weak when walking to the bathroom. Discussed Hbg of 6.1 this am and platelet count of 2; pt agreeable to blood-products. She denies any chills, sore throat, SOB, CP, palpitations, and abd pain. 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 VS: reviewed - remarkable for tachycardia Skin: Area of dryness w/ small scab on L buttock just lateral to gluteal cleft; no erythema to tenderness to palpation of skin surrounding PICC line; skin otherwise warm and dry; no lesions or ulcerations Respiratory: CTA bilat, no adventitious sounds noted. Chest expansion is full and symmetrical Cardio: RRR, mild murmur Abdomen: Round, normoactive BS x4, nontender to palpation MSK: FROM of extremities, no deformities Extremities: no edema Neuro: A&Ox3, cooperative Results & Data Results & Data Vital Signs (Past 12 Hours) Vital Signs Temp Pulse Pulse Pulse Resp BP BP 03/10/25 07:31 109 H 03/10/25 03:50 98.2 F 100 H 14 134/78 03/10/25 01:00 03/10/25 00:51 106 H 03/10/25 00:44 99.3 F 108 H 18 119/78 03/10/25 00:15 111 H 20 130/88 03/09/25 23:29 100.6 F H 115 H 16 132/85 03/09/25 22:33 104 H 03/09/25 22:14 99.3 F 03/09/25 22:01 103 H 20 134/79 03/09/25 21:12 103 H 21 139/79 03/09/25 21:00 103 H 24 138/76 03/09/25 20:33 99 H 24 133/70 Pulse Ox Pulse Ox O2 Del Method O2 Del Method 03/10/25 07:31 03/10/25 03:50 98 Room Air 03/10/25 01:00 95 Room Air 03/10/25 00:51 03/10/25 00:44 95 Room Air 03/10/25 00:15 94 Room Air 03/09/25 23:29 97 Room Air 03/09/25 22:33 03/09/25 22:14 03/09/25 22:01 98 Room Air 03/09/25 21:12 98 Room Air 03/09/25 21:00 96 Room Air 03/09/25 20:33 97 Room Air Laboratory Results Reviewed: CBC, CMP, Creatinine, Mag level Diagnostic Findings Reviewed: Echo PG Care Time/CCT Total # of Minutes Spent Total Time Spent with Patient: Total time spent is greater than 50% in coordination of care (as documented) at patient's floor/unit and/or counseling patient: Coding Level of Care Code 40984 SUB INP/OBS CARE 3/50MIN Diagnoses Neutropenic fever D70.9; R50.81 Antineoplastic chemotherapy induced pancytopenia D61.810; T45.1X5A AML (acute myeloblastic leukemia) C92.00 Hypomagnesemia E83.42
[2025-03-10] MEDS ORDERED: VANCOMYCIN HCL 1,500 MG in SODIUM CHLORIDE 0.9% 500 ML IV SCH (09:00)
[2025-03-10 09:09] LABS: A calco-baum cmplx NotReported Not Detected (NotDetected); Bact fragilis Not Reported Not Detected (NotDetected); Blood Culture Id Panel See PCR Comment (NotDetected); C auris Not Reported Not Detected (NotDetected); Calbicans Not Reported Not Detected (NotDetected); Candida glabrata Not Reported Not Detected (NotDetected); Candida krusei Not Reported Not Detected (NotDetected); Cneoformans/gatti Not Reported Not Detected (NotDetected); Cparapsilosis Not Reported Not Detected (NotDetected); Ctropicalis Not Reported Not Detected (NotDetected); E cloacae compx Not Reported Not Detected (NotDetected); Efaecalis Not Reported Not Detected (NotDetected); Efaecium Not Reported Not Detected (NotDetected); Enterobacterales Not Reported Not Detected (NotDetected); Escherichia coli Not Reported Not Detected (NotDetected); H influenzae Not Reported Not Detected (NotDetected); K aerogenes Not Reported Not Detected (NotDetected); Koxytoca Not Reported Not Detected (NotDetected); Kpneumoniae grp Not Reported Not Detected (NotDetected); Lmonocyt Not Reported Not Detected (NotDetected); N meningitidis Not Reported Not Detected (NotDetected); P aeruginosa Not Reported Not Detected (NotDetected); Proteus spp Not Reported Not Detected (NotDetected); Salmonella spp Not Reported Not Detected (NotDetected); Staph lugdunensis Not Reported Not Detected (NotDetected); Staph spp. Not Reported Not Detected (NotDetected); Staphaureus Not Reported Not Detected (NotDetected); Staphepi Not Reported Not Detected (NotDetected); Stenmaltophilia Not Reported Not Detected (NotDetected); Strep agal(GrpB) Not Reported Not Detected (NotDetected); Strep pneum Not Reported Not Detected (NotDetected); Strep pyog (GrpA) Not Reported Not Detected (NotDetected); Strep spp Not Reported DETECTED (NotDetected)
[2025-03-10 09:16] LABS: Streptococcus spp DETECTED (NotDetected)
[2025-03-10 10:07] LABS: Hematocrit (blood only) 17.2 % (37.0-47.0); Hemoglobin 6.1 g/dl (12.0-16.0); Mean Corpuscular Hemoglobin 27.5 pg (25.0-34.0); Mean Corpuscular Volume 77.5 fL (80.0-100.0); Platelet Count 2 K/uL (130-400); RDW Standard Deviation 38.2 fL (36.4-46.3); Red Blood Count 2.22 M/uL (4.20-5.40); White Blood Count 0.05 K/ul (4.8-10.8)
[2025-03-10 10:21] LABS: Alanine Aminotransferase 30.0 U/L (7-52); Albumin Globulin Ratio 1.3 (0.9-2); Albumin Level 3.7 gm/dl (3.4-5.0); Alkaline Phosphatase 104.0 U/L (34-104); Anion Gap 6.0 (3-11); Bilirubin,Total 1.3 mg/dl (0.2-1.0); Blood Urea Nitrogen 12.0 mg/dl (6-23); Calcium 9.0 mg/dl (8.6-10.3); Carbon Dioxide 25.0 mmol/L (21-32); Chloride 103.0 mmol/L (98-107); Creatinine Clr Calc Pharmacy 110.5 ml/min; Globulin 2.8 gm/dl (2.5-4.0); Glucose 130.0 mg/dl (70-99(Fasting)); Magnesium 1.8 mg/dl (1.7-2.4); Potassium 3.5 mmol/L (3.5-5.1); Sodium 134.0 mmol/L (136-145); Total Protein 6.5 gm/dl (6.0-8.3)
[2025-03-10] MEDS: VANCOMYCIN 750 MG in SODIUM CHLORIDE 0.9% 250 ML IV SCH (10:23)
[2025-03-10] MEDS: PANTOprazole 40 MG/10 ML SYR IV SCH (10:25)
[2025-03-10] MEDS: POTASSIUM CHLORIDE CRTAB 20 MEQ TABCR PO SCH (10:28)
[2025-03-10] MEDS ORDERED: SODIUM CHLORIDE 0.9% 100 ML IV PRN (10:29)
[2025-03-10] MEDS: ACYCLOVIR 400 MG TAB PO SCH (11:13)
[2025-03-10] MEDS: ESCITALOPRAM OXALATE 20 MG TAB PO SCH (11:13)
--- NOTE | 2025-03-10 11:50 | Electrocardiogram Report ---
Test Reason : Blood Pressure : */* mmHG Vent. Rate : 104 BPM Atrial Rate : 104 BPM P-R Int : 150 ms QRS Dur : 86 ms QT Int : 334 ms P-R-T Axes : 71 15 68 degrees QTcB Int : 439 ms Sinus tachycardia Possible Anterior infarct (cited on or before 02-Jan-2025) Abnormal ECG When compared with ECG of 02-Jan-2025 18:16, Nonspecific T wave abnormality no longer evident in Inferior leads Nonspecific T wave abnormality, improved in Anterior leads Confirmed by Roman Wiley ([id number] on 03/10/2025 11:50:20 AM Referred By: REFERRED SELF Confirmed By: Roman Wiley
--- NOTE | 2025-03-10 12:17 | Oncology Consultation ---
Date of Consultation March 10, 2025 Assessment & Plan (1) AML (acute myeloblastic leukemia): (2) Antineoplastic chemotherapy induced pancytopenia: (3) Neutropenic fever: Plan -Admitted with neutropenic fever despite being on prophylactic antibiotics. Blood culture positive for Streptococcus mitis. Currently on ceftriaxone, PICC was removed today. -Transfuse for hemoglobin below 7.5, platelet count below 15,000 -Will continue to hold chemotherapy for now. Would consider outpatient bone marrow biopsy if cytopenias persist despite holding chemotherapy. Plan is for stem cell transplant possibly around April,. History of Present Illness Reason for Consultation: AML, neutropenic fever Attending Physician: Calos Hernandez History of Present Illness Ms. 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 She received cycle 1, day 1 of induction chemotherapy at [facility] with 7+3+ venetoclax on 12/23/2024. Bone marrow biopsy obtained post induction chemotherapy demonstrated no evidence of AML. Subsequently received decitabine/venetoclax day 1 on 02/13/2025. Presented to ER at [facility] with fever. Labs revealed severe neutropenia for which she was admitted. Workup for neutropenic fever revealed positive blood cultures for Streptococcus mitis/oralis. Has required multiple platelet/PRBC transfusion since admission due to cytopenias. She is currently awaiting stem cell transplant at [facility], possibly around April 2025. Allergies Allergy/AdvReac Type Severity Reaction Status Date / Time No Known Allergies Allergy NONE Verified 03/07/25 09:07 Home Medications Medication Instructions Recorded Confirmed Type Auto Titrating CPAP #1 ea 12/11/20 03/09/25 Rx omeprazole 20 mg capsule,delayed 20 mg PO DAILYBB 01/02/25 03/09/25 History release posaconazole 100 mg tablet,delayed 300 mg PO QDL 01/02/25 03/09/25 History release escitalopram oxalate 20 mg tablet 20 mg PO QAM #30 tabs 02/19/25 03/09/25 Rx (Lexapro) acyclovir 400 mg tablet 400 mg PO AMPM 03/09/25 03/09/25 History levofloxacin 500 mg tablet 500 mg PO QPM 03/09/25 03/09/25 History ondansetron HCl 8 mg tablet 8 mg PO UD PRN Nausea And Vomiting 03/09/25 03/09/25 History potassium chloride 20 mEq 20 meq PO QAM 03/09/25 03/09/25 History tablet,extended release Patient History Medical History (Updated 03/09/25 @ 22:52 by Amee Albright MD) Hx of renal calculi passed on own Hx of migraines once per month Anxiety Myelodysplasia (myelodysplastic syndrome) has lab work monthly-- follows with Dr. Hyman at [facility] Cardiomegaly moderate on 10/2023 CXR work up in past, no issues Moderate obstructive sleep apnea cpap Myalgia and myositis GERD (gastroesophageal reflux disease) Rheumatoid arthritis no meds, occasional joint pain Hypertension Surgical History History of bone marrow biopsy x2 at [facility], 1 in office Hx of colonoscopy (06/28/24) [facility] Hx of wisdom tooth extraction History of surgery (benign) fatty tissue removed under left arm History of esophagogastroduodenoscopy (EGD) History of cholecystectomy Family History Mother Father Stroke syndrome Stroke Aunt Breast cancer Colorectal cancer Grandmother (Maternal) Ovarian cancer Denies family history of Prostate cancer Diabetes Myocardial infarction Lung cancer Hypertension Social History Smoking Status: Never smoker Second Hand Exposure: Yes (parents smoked); Do You Dip or Chew Tobacco: No; Hx Alcohol Use: No Hx Substance Use: No Preferred Language: Tunisian Communication Ability: Effective Visual Impairment: No Limitations Hearing Ability: Normal Litigation Assistant Required: No Beliefs That Will Affect Care: None marital status: Current Living Situation: Alone Current Living Situation Comment: friend lives with pt current occupational status: employed 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 Feels Safe at Home: Yes Childhood Exposure to Second-Hand Smoke: Yes caffeine: Yes Dental Care, Regularly: Yes Physical Activity Frequency: 3-4 Times per Week Seatbelt Use: sometimes Sunscreen Use: Yes Assistive Devices: CPAP Results & Data Vital Signs (Past 12 Hours) Vital Signs Temp Pulse Pulse Pulse Resp BP Pulse Ox 03/10/25 08:34 37.0 C 117 H 18 135/83 93 03/10/25 07:31 109 H 03/10/25 03:50 36.8 C 100 H 14 134/78 98 03/10/25 01:00 03/10/25 00:51 106 H 03/10/25 00:44 37.4 C 108 H 18 119/78 95 Pulse Ox O2 Del Method O2 Del Method 03/10/25 08:34 Room Air 03/10/25 07:31 03/10/25 03:50 Room Air 03/10/25 01:00 95 Room Air 03/10/25 00:51 03/10/25 00:44 Room Air
--- NOTE | 2025-03-10 13:45 | XCELERA ---
[id number]
[2025-03-10] MEDS: cefTRIAXone SODIUM 2,000 MG/50 ML BAG IV SCH (14:42)
[2025-03-10] MEDS ORDERED: ONDANSETRON 4 MG OD TAB PO PRN (15:21)
[2025-03-10] MEDS: levoFLOXacin 500 MG TAB PO SCH (21:35)
[2025-03-10 23:17] LABS: Hematocrit (blood only) 18.4 % (37.0-47.0); Hemoglobin 6.5 g/dl (12.0-16.0); Mean Corpuscular Hemoglobin 27.1 pg (25.0-34.0); Mean Corpuscular Volume 76.7 fL (80.0-100.0); Platelet Count 5 K/uL (130-400); RDW Standard Deviation 37.3 fL (36.4-46.3); Red Blood Count 2.40 M/uL (4.20-5.40); Reticulocytes # 0.010 10^6/uL (0.020-0.100); White Blood Count 0.06 K/ul (4.8-10.8)
[2025-03-11 01:09] LABS: Appearance Urine Clear (Clear); Glucose Urine UA Negative (Negative)
--- NOTE | 2025-03-11 04:23 | Communication Note ---
Date of Service: March 11, 2025 03/10/25 @ 2213 was alerted by nursing that patient became febrile while receiving her 2nd unit of PRBCs. Due to this transfusion was stopped for concern of potential transfusion reaction. She did have mild fever prior to starting her 2nd unit for which she received 1g IV Tylenol with good response. Labs including CBC, LDH, reticulocyte count, haptoglobin, and UA were ordered to screen for hemolysis. CBC, LDH, reticulocyte count and UA did not demonstrate evidence of hemolysis. Haptoglobin is a send out therefore results could not be reviewed. Nursing initiated their transfusion reaction protocol and blood was returned to the lab. Transfusion was not resumed. Patient remained hemodynamically stable with no complaints throughout her workup. Exact etiology of fever is unclear. There could have been a degree of Febrile Non-Hemolytic Transfusion Reaction vs fever in the setting of her bacteremia. Of note, the patient does have PICC line in place and this was utilized for transfusion. In setting of gram + bacteremia, question if this line should be removed until negative cultures are demonstrated.
[2025-03-11] MEDS ORDERED: VANCOMYCIN LEVEL ONE (07:00)
[2025-03-11 07:43] LABS: White Blood Count 0.04 K/ul (4.8-10.8)
[2025-03-11 07:45] LABS: Hematocrit (blood only) 17.3 % (37.0-47.0); Hemoglobin 6.2 g/dl (12.0-16.0); Mean Corpuscular Hemoglobin 27.6 pg (25.0-34.0); Mean Corpuscular Volume 76.9 fL (80.0-100.0); Platelet Count 3 K/uL (130-400); RDW Standard Deviation 36.6 fL (36.4-46.3); Red Blood Count 2.25 M/uL (4.20-5.40)
[2025-03-11 07:59] LABS: Alanine Aminotransferase 22.0 U/L (7-52); Albumin Globulin Ratio 1.1 (0.9-2); Albumin Level 3.4 gm/dl (3.4-5.0); Alkaline Phosphatase 89.0 U/L (34-104); Anion Gap 7.0 (3-11); Bilirubin,Total 0.9 mg/dl (0.2-1.0); Blood Urea Nitrogen 12.0 mg/dl (6-23); Calcium 9.3 mg/dl (8.6-10.3); Carbon Dioxide 27.0 mmol/L (21-32); Chloride 103.0 mmol/L (98-107); Creatinine Clr Calc Pharmacy 140.7 ml/min; Globulin 3.0 gm/dl (2.5-4.0); Glucose 126.0 mg/dl (70-99(Fasting)); Magnesium 1.8 mg/dl (1.7-2.4); Potassium 3.3 mmol/L (3.5-5.1); Sodium 137.0 mmol/L (136-145); Total Protein 6.4 gm/dl (6.0-8.3)
[2025-03-11] MEDS ORDERED: SODIUM CHLORIDE 0.9% 100 ML IV PRN (09:24)
--- NOTE | 2025-03-11 11:08 | Infectious Disease Consult ---
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 She last received chemotherapy on 02/26/2025. Prior to admission she developed intermittent nausea, body aches and muscle aches. She checked her temperature at home and had a fever of 100.3 prompting evaluation in the ED. She denied any abdominal pain, back pain, diarrhea, constipation, shortness of breath or cough. She has pet dogs at home who are healthy. She denied any recent sick contacts or travel. She has some abrasions on her buttocks which are healing. She also reports that in December 2024, she had fusobacterium and Leptotrichia bacteremia and was evaluated at [facility] and her PICC line was exchanged in the same arm. Since then she has had areas of irritation tape around her PICC line at the tape site but no other problems. She denies any other prosthetics or hardware. Approximately 3 weeks ago she was seen by her dentist for dental x-rays in preparation for stem cell transplant at [facility]. She denies any dental manipulation, cleanings or extractions. She denies any dental or oral pain. In the ED she was febrile with a T of 38.1. On room air. Labs: WBC 0.09, hemoglobin 8, hematocrit 23.3, platelets 5. ANC less than 0.50, BUN 12, creatinine 0.65. Urinalysis negative for infection. Respiratory viral panel negative. BC ID grew Streptococcus species which has been identified as Streptococcus oralis/mitis on Bcx. Chest x-ray shows no acute cardiopulmonary disease. Right PICC tip in the mid superior vena cava. She was started on started on vancomycin and cefepime. She is currently receiving ceftriaxone. Infectious disease consulted for neutropenic fever and GPC bacteremia. TTE completed 03/10 shows no significant valvular pathology. No valvular vegetations.Current WBC 0.04, platelets 3 ( 03/11). T m in last 24 hours 37.8 Microbiology: 03/11/25 Blood culture in process 03/10/25 blood culture NGTD 03/09/25 blood culture Streptococcus/oralis in 4/ bottles Prior Microbiology: 12/30/24 Blood culture# 1 Fusobacterium nucleatum in 1/ ( non viabl for sensi) 12/30/24 Blood culture # 2 Leptotrichia trevisanii ( Pip tazo, erta, clinsda , metronidazole S) in 1/2 bottles Antimicrobials/anti-infectives Cefepime 03/09 Ceftriaxone urrent Vancomycin 03/09 - 03/10 Acyclovir prophylaxis Levaquin prophylaxis Posaconazole prophylaxis # Strep mitis/oralis bacteremia # Neutropenic fever # AML ( acute myeloblastic leukemia) on chemotherapy via PICC # Pancytopenia, postchemotherapy # PICC line in since 12/2024 # 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 She is on Levaquin prophylaxis, so I will assume that strep mitis may be resistant or intermediate sensitivity to Levaquin. Agree with ceftriaxone. 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 Like strep mitis/oralis , these are also part of oral carlos. Noted that this bacteremia developed post chemotherapy in 12/2024. She denied mucositis or dental issues then or now She states her PICC line was exchanged at same site in 12/2024. 3 weeks ago she was evaluated by dental for preop evaluation prior to stem cell transplant. She reports no dental manipulation/cleanings or extractions. She had oral x-rays done only. Would remove PICC line as possibly seeded. She has some abrasions on the buttocks that are in various stages of healing. No deep wounds. No evidence of acute infection at buttocks. . Recommendations; Continue Ceftriaxone 2 g IV daily Remove PICC line. Would not replace until repeat Bcx NG for 72 hours or more Follow up 03/10 and 03/11 Bcx, if positive, repeat and check [id number] Continue prophylaxis: levaquin, posaconazole, acyclovir Communicated recommendations to primary team Thank you for this consult. ID will continue to follow. Ron Cervantes MD, MPH Infectious Disease [facility], [facility] Call [phone] with questions Consultation Information Consultation was provided via telemedicine using two-way real-time interactive telecommunication between the patient and the telemedicine provider. For the duration of the visit, the provider was performing the assessment from a different facility than the patient. This includesuse of bluetooth stethoscope forauscultationperformed by the telepresenter that the telemedicine provider can hear if described in the physical exam. Kil[employer]ender contact information: Please call [facility] Call Center . 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 She last received chemotherapy on 02/26/2025. Prior to admission she developed intermittent nausea, body aches and muscle aches. She checked her temperature at home and had a fever of 100.3 prompting evaluation in the ED. She denied any abdominal pain, back pain, diarrhea, constipation, shortness of breath or cough. She has pet dogs at home who are healthy. She denied any recent sick contacts or travel. She has some abrasions on her buttocks which are healing. She also reports that in December 2024, she had fusobacterium and Leptotrichia bacteremia and was evaluated at [facility] and her PICC line was exchanged in the same arm. Since then she has had areas of irritation tape around her PICC line at the tape site but no other problems. She denies any other prosthetics or hardware. Approximately 3 weeks ago she was seen by her dentist for dental x-rays in preparation for stem cell transplant at [facility]. She denies any dental manipulation, cleanings or extractions. She denies any dental or oral pain. In the ED she was febrile with a T of 38.1. On room air. Labs: WBC 0.09, hemoglobin 8, hematocrit 23.3, platelets 5. ANC less than 0.50, BUN 12, creatinine 0.65. Urinalysis negative for infection. Respiratory viral panel negative. BC ID grew Streptococcus species which has been identified as Streptococcus oralis/mitis on Bcx. Chest x-ray shows no acute cardiopulmonary d isease. Right PICC tip in the mid superior vena cava. She was started on started on vancomycin and cefepime. She is currently receiving ceftriaxone. Infectious disease consulted for neutropenic fever and GPC bacteremia. TTE completed 03/10 shows no significant valvular pathology. No valvular vegetations.Current WBC 0.04, platelets 3 ( 03/11). T m in last 24 hours 37.8 Allergies Allergy/AdvReac Type Severity Reaction Status Date / Time No Known Allergies Allergy NONE Verified 03/07/25 09:07 Home Medications Medication Instructions Recorded Confirmed Type Auto Titrating CPAP #1 ea 12/11/20 03/09/25 Rx omeprazole 20 mg capsule,delayed 20 mg PO DAILYBB 01/02/25 03/09/25 History release posaconazole 100 mg tablet,delayed 300 mg PO QDL 01/02/25 03/09/25 History release escitalopram oxalate 20 mg tablet 20 mg PO QAM #30 tabs 02/19/25 03/09/25 Rx (Lexapro) acyclovir 400 mg tablet 400 mg PO AMPM 03/09/25 03/09/25 History levofloxacin 500 mg tablet 500 mg PO QPM 03/09/25 03/09/25 History ondansetron HCl 8 mg tablet 8 mg PO UD PRN Nausea And Vomiting 03/09/25 03/09/25 History potassium chloride 20 mEq 20 meq PO QAM 03/09/25 03/09/25 History tablet,extended release Patient History Medical History (Updated 03/09/25 @ 22:52 by Amee Albright MD) Hx of renal calculi passed on own Hx of migraines once per month Anxiety Myelodysplasia (myelodysplastic syndrome) has lab work monthly-- follows with Dr. Hyman at [facility] Cardiomegaly moderate on 10/2023 CXR work up in past, no issues Moderate obstructive sleep apnea cpap Myalgia and myositis GERD (gastroesophageal reflux disease) Rheumatoid arthritis no meds, occasional joint pain Hypertension Surgical History History of bone marrow biopsy x2 at [facility], 1 in office Hx of colonoscopy (06/28/24) [facility] Hx of wisdom tooth extraction History of surgery (benign) fatty tissue removed under left arm History of esophagogastroduodenoscopy (EGD) History of cholecystectomy Family History Mother Father Stroke syndrome Stroke Aunt Breast cancer Colorectal cancer Grandmother (Maternal) Ovarian cancer Denies family history of Prostate cancer Diabetes Myocardial infarction Lung cancer Hypertension Social History Smoking Status: Never smoker Second Hand Exposure: Yes (parents smoked); Do You Dip or Chew Tobacco: No; Hx Alcohol Use: No Hx Substance Use: No Preferred Language: Barbadian Communication Ability: Effective Visual Impairment: No Limitations Hearing Ability: Normal [employer] Required: No Beliefs That Will Affect Care: None marital status: Current Living Situation: Alone Current Living Situation Comment: friend lives with pt current occupational status: employed 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 Pertinent positives as per HPI Physical Exam Physical Exam: General NAD, pleasant Neck- supple HEENT- At/Nc, anicteric sclera. No oral ulcers, no gum or dental abnormalities. Fair dentition. Abdomen- soft, NT, ND MSK- no joint effusion, No spinal tenderness Skin- buttock: faint erythema with abrasions, no deep wounds. Not tender, No drainage Neuro- AAO times 3 Psych- Normal mood, cooperative Results & Data Vital Signs (Past 12 Hours) Vital Signs Temp Pulse Pulse Resp BP BP Pulse Ox 03/11/25 10:53 36.5 C 83 18 131/84 95 03/11/25 08:49 03/11/25 07:33 37.1 C 98 H 20 123/79 91 03/11/25 07:13 95 H 03/11/25 03:50 36.8 C 97 H 20 118/76 95 03/11/25 01:00 Pulse Ox O2 Del Method O2 Del Method O2 Flow Rate 03/11/25 10:53 0 03/11/25 08:49 Room Air 03/11/25 07:33 Room Air 03/11/25 07:13 03/11/25 03:50 Room Air 03/11/25 01:00 95 Room Air Laboratory Results Laboratory Results - last 48 hr 03/09/25 03/09/25 03/09/25 17:56 19:12 19:16 WBC 0.09 L* RBC 2.94 L Hgb 8.0 L Hct 23.3 L MCV 79.3 L MCH 27.2 MCHC 34.3 RDW Std Deviation 39.0 RDW Coeff of Kota 13.8 Plt Count 5 L* Immature Gran % (Auto) Neut % (Auto) Lymph % (Auto) Menard % (Auto) Eos % (Auto) Baso % (Auto) Reticulocyte % (Auto) Neut # (Auto) < 0.50 L* Lymph # (Auto) Menard # (Auto) Eos # (Auto) Baso # (Auto) Reticulocyte # Immature Gran # (Auto) Neutrophils % (Manual) Band Neutrophils % Lymphocytes % (Manual) Prolymphocyte % Reactive Lymphs % (Man) Monocytes % (Manual) Eosinophils % (Manual) Basophils % (Manual) Metamyelocytes % (Man) Myelocytes % (Man) Promyelocytes % (Man) Blast Cells % (Manual) Plasma Cell % (Manual) Other Cells % Nucleated RBC % Neutrophils # (Manual) Band Neutrophils # Total Absolute Neuts Lymphocytes # (Manual) Prolymphocyte # Reactive Lymphs # Total Abs Lymphocytes Monocytes # (Manual) Eosinophils # (Manual) Basophils # (Manual) Metamyelocytes # (Man) Myelocytes # (Manual) Promyelocytes # (Man) Blast Cells # (Man) Plasma Cell # (Manual) Other Cells # Nucleated RBCs # (Man) Hypersegmented Neuts Hyposegmented Neuts Hypogranular Neuts Large Granular Lymphs # Lrg Granular Lymphs Hairy Cells Smudge Cells Toxic Granulation Toxic Vacuolation Dohle Bodies Iris Rods Hypogranular Platelets Giant Platelets Platelet Satelliting RBC Morphology Polychromasia Hypochromasia Poikilocytosis Basophilic Stippling Anisocytosis Microcytosis Macrocytosis Spherocytes Pappenheimer Bodies Sickle Cells Target Cells Tear Drop Cells Ovalocytes Stomatocytes Salcedo-Rex Bodies Echinocytes Acanthocytes (Spur) Rouleaux RBC Agglutinates Schistocytes Sezary Cell PT 11.2 INR 1.1 Sodium 136 Potassium 3.9 Chloride 103 Carbon Dioxide 25 Anion Gap 8 BUN 15 Creatinine 0.77 Est Cr Clr Drug Dosing 93.8 eGFR 91.61 BUN/Creatinine Ratio 19.5 Glucose 144 H Lactate 1.1 Calcium 9.6 Magnesium 1.5 L Total Bilirubin 1.2 H Direct Bilirubin 0.3 H AST 25 ALT 33 Alkaline Phosphatase 140 H Lactate Dehydrogenase Troponin I High Sens 14.5 H Total Protein 7.5 Albumin 4.0 Globulin Albumin/Globulin Ratio Procalcitonin 0.19 Urine Color Urine Appearance Urine pH Ur Specific Hometown Urine Protein Urine Glucose (UA) Urine Ketones Urine Blood Urine Nitrite Urine Bilirubin Urine Urobilinogen Ur Leukocyte Esterase Urine Comment Adenovirus (PCR) Not Detected B. pertussis DNA (PCR) Not Detected B.parapertussis DNA PCR Not Detected C. pneumoniae DNA (PCR) Not Detected Coronavirus OC43 (PCR) Not Detected Coronavirus HKU1 (PCR) Not Detected Coronavirus 229E (PCR) Not Detected SARS-CoV-2 (PCR) Not Detected Coronavirus NL63 (PCR) Not Detected Human Metapneumovir PCR Not Detected Influenza Type A (PCR) Not Detected Influenza Type B (PCR) Not Detected M. pneumoniae (PCR) Not Detected Parainfluenza 1 (PCR) Not Detected Parainfluenza 2 (PCR) Not Detected Parainfluenza 3 (PCR) Not Detected Parainfluenza 4 (PCR) Not Detected RSV (PCR) Not Detected Entero/Rhino (PCR) Not Detected Streptococcus sp PCR DETECTED A Bld Cult ID Panel PCR See PCR Comment Blood Parasites ID Blood Type O Positive Antibody Screen NEGATIVE Crossmatch See Detail Transfusion React Date Transfusion React Time Tx React Symptoms Reaction Clerical Check Lab Clerical Err Check React Component Return Volume Returned Pre-Trans Blood Type Pre-Trans Vis Hemolysis Pre-Trans MARIA ELENA Pre-Trans MARIA ELENA IgG Pre-Trans MARIA ELENA Poly Pre-Trans MARIA ELENA C3b, C3d Post-Trans Blood Type Post-Tx Visible Hemolys Post-Trans MARIA ELENA Post-Trans MARIA ELENA IgG Post-Trans MARIA ELENA Poly Post-Trans MARIA ELENA C3b, C3d Post-Trans Ur Hemoglobin Reaction Path Interpret Transfusion Serv Com 03/09/25 03/10/25 03/10/25 19:45 09:19 22:36 WBC 0.05 L* 0.06 L* RBC 2.22 L 2.40 L Hgb 6.1 L* 6.5 L* Hct 17.2 L* 18.4 L* MCV 77.5 L 76.7 L MCH 27.5 27.1 MCHC 35.5 35.3 RDW Std Deviation 38.2 37.3 RDW Coeff of Kota 13.6 13.4 Plt Count 2 L* D 5 L* D Immature Gran % (Auto) Cancelled Cancelled Neut % (Auto) Cancelled Cancelled Lymph % (Auto) Cancelled Cancelled Menard % (Auto) Cancelled Cancelled Eos % (Auto) Cancelled Cancelled Baso % (Auto) Cancelled Cancelled Reticulocyte % (Auto) 0.49 L Neut # (Auto) Cancelled Cancelled Lymph # (Auto) Cancelled Cancelled Menard # (Auto) Cancelled Cancelled Eos # (Auto) Cancelled Cancelled Baso # (Auto) Cancelled Cancelled Reticulocyte # 0.010 L Immature Gran # (Auto) Cancelled Cancelled Neutrophils % (Manual) Cancelled Cancelled Band Neutrophils % Cancelled Cancelled Lymphocytes % (Manual) Cancelled Cancelled Prolymphocyte % Cancelled Cancelled Reactive Lymphs % (Man) Cancelled Cancelled Monocytes % (Manual) Cancelled Cancelled Eosinophils % (Manual) Cancelled Cancelled Basophils % (Manual) Cancelled Cancelled Metamyelocytes % (Man) Cancelled Cancelled Myelocytes % (Man) Cancelled Cancelled Promyelocytes % (Man) Cancelled Cancelled Blast Cells % (Manual) Cancelled Cancelled Plasma Cell % (Manual) Cancelled Cancelled Other Cells % Cancelled Cancelled Nucleated RBC % Cancelled Cancelled Neutrophils # (Manual) Cancelled Cancelled Band Neutrophils # Cancelled Cancelled Total Absolute Neuts Cancelled Cancelled Lymphocytes # (Manual) Cancelled Cancelled Prolymphocyte # Cancelled Cancelled Reactive Lymphs # Cancelled Cancelled Total Abs Lymphocytes Cancelled Cancelled Monocytes # (Manual) Cancelled Cancelled Eosinophils # (Manual) Cancelled Cancelled Basophils # (Manual) Cancelled Cancelled Metamyelocytes # (Man) Cancelled Cancelled Myelocytes # (Manual) Cancelled Cancelled Promyelocytes # (Man) Cancelled Cancelled Blast Cells # (Man) Cancelled Cancelled Plasma Cell # (Manual) Cancelled Cancelled Other Cells # Cancelled Cancelled Nucleated RBCs # (Man) Cancelled Cancelled Hypersegmented Neuts Cancelled Cancelled Hyposegmented Neuts Cancelled Cancelled Hypogranular Neuts Cancelled Cancelled Large Granular Lymphs Cancelled Cancelled # Lrg Granular Lymphs Cancelled Cancelled Hairy Cells Cancelled Cancelled Smudge Cells Cancelled Cancelled Toxic Granulation Cancelled Cancelled Toxic Vacuolation Cancelled Cancelled Dohle Bodies Cancelled Cancelled Iris Rods Cancelled Cancelled Hypogranular Platelets Cancelled Cancelled Giant Platelets Cancelled Cancelled Platelet Satelliting Cancelled Cancelled RBC Morphology Cancelled Cancelled Polychromasia Cancelled Cancelled Hypochromasia Cancelled Cancelled Poikilocytosis Cancelled Cancelled Basophilic Stippling Cancelled Cancelled Anisocytosis Cancelled Cancelled Microcytosis Cancelled Cancelled Macrocytosis Cancelled Cancelled Spherocytes Cancelled Cancelled Pappenheimer Bodies Cancelled Cancelled Sickle Cells Cancelled Cancelled Target Cells Cancelled Cancelled Tear Drop Cells Cancelled Cancelled Ovalocytes Cancelled Cancelled Stomatocytes Cancelled Cancelled Salcedo-Rex Bodies Cancelled Cancelled Echinocytes Cancelled Cancelled Acanthocytes (Spur) Cancelled Cancelled Rouleaux Cancelled Cancelled RBC Agglutinates Cancelled Cancelled Schistocytes Cancelled Cancelled Sezary Cell Cancelled Cancelled PT INR Sodium 134 L Potassium 3.5 Chloride 103 Carbon Dioxide 25 Anion Gap 6 BUN 12 Creatinine 0.65 Est Cr Clr Drug Dosing 110.5 eGFR 103.91 BUN/Creatinine Ratio 18.5 Glucose 130 H Lactate Calcium 9.0 Magnesium 1.8 Total Bilirubin 1.3 H Direct Bilirubin AST 23 ALT 30 Alkaline Phosphatase 104 Lactate Dehydrogenase 167 Troponin I High Sens Total Protein 6.5 Albumin 3.7 Globulin 2.8 Albumin/Globulin Ratio 1.3 Procalcitonin Urine Color Yellow Urine Appearance Clear Urine pH 7.0 Ur Specific [place]ometown 1.018 Urine Protein Negative Urine Glucose (UA) Negative Urine Ketones Negative Urine Blood Negative Urine Nitrite Negative Urine Bilirubin Negative Urine Urobilinogen Negative Ur Leukocyte Esterase Negative Urine Comment Adenovirus (PCR) B. pertussis DNA (PCR) B.parapertussis DNA PCR C. pneumoniae DNA (PCR) Coronavirus OC43 (PCR) Coronavirus HKU1 (PCR) Coronavirus 229E (PCR) SARS-CoV-2 (PCR) Coronavirus NL63 (PCR) Human Metapneumovir PCR Influenza Type A (PCR) Influenza Type B (PCR) M. pneumoniae (PCR) Parainfluenza 1 (PCR) Parainfluenza 2 (PCR) Parainfluenza 3 (PCR) Parainfluenza 4 (PCR) RSV (PCR) Entero/Rhino (PCR) Streptococcus sp PCR Bld Cult ID Panel PCR Blood Parasites ID Cancelled Cancelled Blood Type Antibody Screen Crossmatch Transfusion React Date Transfusion React Time Tx React Symptoms Reaction Clerical Check Lab Clerical Err Check React Component Return Volume Returned Pre-Trans Blood Type Pre-Trans Vis Hemolysis Pre-Trans MARIA ELENA Pre-Trans MARIA ELENA IgG Pre-Trans MARIA ELENA Poly Pre-Trans MARIA ELENA C3b, C3d Post-Trans Blood Type Post-Tx Visible Hemolys Post-Trans MARIA ELENA Post-Trans MARIA ELENA IgG Post-Trans MARIA ELENA Poly Post-Trans MARIA ELENA C3b, C3d Post-Trans Ur Hemoglobin Reaction Path Interpret Transfusion Serv Com 03/10/25 03/11/25 03/11/25 23:44 01:00 01:00 WBC RBC Hgb Hct MCV MCH MCHC RDW Std Deviation RDW Coeff of Kota Plt Count Immature Gran % (Auto) Neut % (Auto) Lymph % (Auto) Menard % (Auto) Eos % (Auto) Baso % (Auto) Reticulocyte % (Auto) Neut # (Auto) Lymph # (Auto) Menard # (Auto) Eos # (Auto) Baso # (Auto) Reticulocyte # Immature Gran # (Auto) Neutrophils % (Manual) Band Neutrophils % Lymphocytes % (Manual) Prolymphocyte % Reactive Lymphs % (Man) Monocytes % (Manual) Eosinophils % (Manual) Basophils % (Manual) Metamyelocytes % (Man) Myelocytes % (Man) Promyelocytes % (Man) Blast Cells % (Manual) Plasma Cell % (Manual) Other Cells % Nucleated RBC % Neutrophils # (Manual) Band Neutrophils # Total Absolute Neuts Lymphocytes # (Manual) Prolymphocyte # Reactive Lymphs # Total Abs Lymphocytes Monocytes # (Manual) Eosinophils # (Manual) Basophils # (Manual) Metamyelocytes # (Man) Myelocytes # (Manual) Promyelocytes # (Man) Blast Cells # (Man) Plasma Cell # (Manual) Other Cells # Nucleated RBCs # (Man) Hypersegmented Neuts Hyposegmented Neuts Hypogranular Neuts Large Granular Lymphs # Lrg Granular Lymphs Hairy Cells Smudge Cells Toxic Granulation Toxic Vacuolation Dohle Bodies Iris Rods Hypogranular Platelets Giant Platelets Platelet Satelliting RBC Morphology Polychromasia Hypochromasia Poikilocytosis Basophilic Stippling Anisocytosis Microcytosis Macrocytosis Spherocytes Pappenheimer Bodies Sickle Cells Target Cells Tear Drop Cells Ovalocytes Stomatocytes Salcedo-Rex Bodies Echinocytes Acanthocytes (Spur) Rouleaux RBC Agglutinates Schistocytes Sezary Cell PT INR Sodium Potassium Chloride Carbon Dioxide Anion Gap BUN Creatinine Est Cr Clr Drug Dosing eGFR BUN/Creatinine Ratio Glucose Lactate Calcium Magnesium Total Bilirubin Direct Bilirubin AST ALT Alkaline Phosphatase Lactate Dehydrogenase Troponin I High Sens Total Protein Albumin Globulin Albumin/Globulin Ratio Procalcitonin Urine Color Yellow Urine Appearance Clear Urine pH 6.0 Ur Specific [place]ometown 1.007 Urine Protein Negative Urine Glucose (UA) Negative Urine Ketones Negative Urine Blood Negative Negative Urine Nitrite Negative Urine Bilirubin Negative Urine Urobilinogen Negative Ur Leukocyte Esterase Negative Urine Comment Adenovirus (PCR) B. pertussis DNA (PCR) B.parapertussis DNA PCR C. pneumoniae DNA (PCR) Coronavirus OC43 (PCR) Coronavirus HKU1 (PCR) Coronavirus 229E (PCR) SARS-CoV-2 (PCR) Coronavirus NL63 (PCR) Human Metapneumovir PCR Influenza Type A (PCR) Influenza Type B (PCR) M. pneumoniae (PCR) Parainfluenza 1 (PCR) Parainfluenza 2 (PCR) Parainfluenza 3 (PCR) Parainfluenza 4 (PCR) RSV (PCR) Entero/Rhino (PCR) Streptococcus sp PCR Bld Cult ID Panel PCR Blood Parasites ID Blood Type Antibody Screen Crossmatch Transfusion React Date 03/10/25 Transfusion React Time 2212 Tx React Symptoms FEVER Reaction Clerical Check None Found Lab Clerical Err Check None Found React Component Return PCLR Volume Returned 295 Pre-Trans Blood Type O POSITIVE Pre-Trans Vis Hemolysis No Pre-Trans MARIA ELENA Negative Pre-Trans MARIA ELENA IgG Neg Pre-Trans MARIA ELENA Poly Neg Pre-Trans MARIA ELENA C3b, C3d Neg Post-Trans Blood Type O POSITIVE Post-Tx Visible Hemolys No Post-Trans MARIA ELENA Negative Post-Trans MARIA ELENA IgG Neg Post-Trans MARIA ELENA Poly Neg Post-Trans MARIA ELENA C3b, C3d Neg Post-Trans Ur Hemoglobin Reaction Path Interpret Transfusion Serv Com 03/11/25 03/11/25 07:10 07:11 WBC 0.04 L* RBC 2.25 L Hgb 6.2 L* Hct 17.3 L* MCV 76.9 L MCH 27.6 MCHC 35.8 RDW Std Deviation 36.6 RDW Coeff of Kota 13.3 Plt Count 3 L* Immature Gran % (Auto) Neut % (Auto) Lymph % (Auto) Menard % (Auto) Eos % (Auto) Baso % (Auto) Reticulocyte % (Auto) Neut # (Auto) < 0.50 L* Lymph # (Auto) Menard # (Auto) Eos # (Auto) Baso # (Auto) Reticulocyte # Immature Gran # (Auto) Neutrophils % (Manual) Band Neutrophils % Lymphocytes % (Manual) Prolymphocyte % Reactive Lymphs % (Man) Monocytes % (Manual) Eosinophils % (Manual) Basophils % (Manual) Metamyelocytes % (Man) Myelocytes % (Man) Promyelocytes % (Man) Blast Cells % (Manual) Plasma Cell % (Manual) Other Cells % Nucleated RBC % Neutrophils # (Manual) Band Neutrophils # Total Absolute Neuts Lymphocytes # (Manual) Prolymphocyte # Reactive Lymphs # Total Abs Lymphocytes Monocytes # (Manual) Eosinophils # (Manual) Basophils # (Manual) Metamyelocytes # (Man) Myelocytes # (Manual) Promyelocytes # (Man) Blast Cells # (Man) Plasma Cell # (Manual) Other Cells # Nucleated RBCs # (Man) Hypersegmented Neuts Hyposegmented Neuts Hypogranular Neuts Large Granular Lymphs # Lrg Granular Lymphs Hairy Cells Smudge Cells Toxic Granulation Toxic Vacuolation Dohle Bodies Iris Rods Hypogranular Platelets Giant Platelets Platelet Satelliting RBC Morphology Polychromasia Hypochromasia Poikilocytosis Basophilic Stippling Anisocytosis Microcytosis Macrocytosis Spherocytes Pappenheimer Bodies Sickle Cells Target Cells Tear Drop Cells Ovalocytes Stomatocytes Salcedo-Rex Bodies Echinocytes Acanthocytes (Spur) Rouleaux RBC Agglutinates Schistocytes Sezary Cell PT INR Sodium 137 Potassium 3.3 L Chloride 103 Carbon Dioxide 27 Anion Gap 7 BUN 12 Creatinine 0.51 L Est Cr Clr Drug Dosing 140.7 eGFR 110.17 BUN/Creatinine Ratio 23.5 H Glucose 126 H Lactate Calcium 9.3 Magnesium 1.8 Total Bilirubin 0.9 Direct Bilirubin AST 12 L ALT 22 Alkaline Phosphatase 89 Lactate Dehydrogenase Troponin I High Sens Total Protein 6.4 Albumin 3.4 Globulin 3.0 Albumin/Globulin Ratio 1.1 Procalcitonin Urine Color Urine Appearance Urine pH Ur Specific [place] Urine Protein Urine Glucose (UA) Urine Ketones Urine Blood Urine Nitrite Urine Bilirubin Urine Urobilinogen Ur Leukocyte Esterase Urine Comment Adenovirus (PCR) B. pertussis DNA (PCR) B.parapertussis DNA PCR C. pneumoniae DNA (PCR) Coronavirus OC43 (PCR) Coronavirus HKU1 (PCR) Coronavirus 229E (PCR) SARS-CoV-2 (PCR) Coronavirus NL63 (PCR) Human Metapneumovir PCR Influenza Type A (PCR) Influenza Type B (PCR) M. pneumoniae (PCR) Parainfluenza 1 (PCR) Parainfluenza 2 (PCR) Parainfluenza 3 (PCR) Parainfluenza 4 (PCR) RSV (PCR) Entero/Rhino (PCR) Streptococcus sp PCR Bld Cult ID Panel PCR Blood Parasites ID Blood Type Antibody Screen Crossmatch Transfusion React Date Transfusion React Time Tx React Symptoms Reaction Clerical Check Lab Clerical Err Check React Component Return Volume Returned Pre-Trans Blood Type Pre-Trans Vis Hemolysis Pre-Trans MARIA ELENA Pre-Trans MARIA ELENA IgG Pre-Trans MARIA ELENA Poly Pre-Trans MARIA ELENA C3b, C3d Post-Trans Blood Type Post-Tx Visible Hemolys Post-Trans MARIA ELENA Post-Trans MARIA ELENA IgG Post-Trans MARIA ELENA Poly Post-Trans MARIA ELENA C3b, C3d Post-Trans Ur Hemoglobin Reaction Path Interpret Transfusion Serv Com Microbiology 03/09/25 17:56 Blood Aerobic Blood Culture - Preliminary Streptococcus mitis/oralis [facility] 03/09/25 17:56 Blood Anaerobic Blood Culture - Preliminary Streptococcus mitis/oralis [facility] 03/09/25 19:12 Blood Aerobic Blood Culture - Preliminary Streptococcus mitis/oralis 03/09/25 19:12 Blood Anaerobic Blood Culture - Preliminary Streptococcus mitis/oralis [facility] Diagnostic Findings Chest X-Ray 03/09/25 18:54 EXAM: Radiograph of the Chest 1 View INDICATION: Sepsis TECHNIQUE: Frontal view of the chest. COMPARISON: 01/02/2025 FINDINGS: Lungs and pleural spaces: No consolidation or pulmonary edema. No pleural effusion or pneumothorax. Heart: Shape and configuration within normal limits allowing for technique. Mediastinum: Normal contour. Bones/joints: No fracture, erosion or dislocation. Soft tissues: No abnormality noted. No radiopaque foreign body noted. Tubes, lines and devices: Right peripherally inserted central catheter (PICC) tip in the mid superior vena cava. Upper abdomen: No abnormality noted. IMPRESSION: 1. No acute cardiopulmonary disease. 2. Lines and tubes as above. ACT 112: N/A Electronically signed by Robyn Hart 03-09-2025 7:14 PM Medications Administered Home Medications Medication Instructions Recorded Confirmed Last Taken Auto Titrating CPAP #1 ea 12/11/20 03/09/25 Unknown omeprazole 20 mg capsule,delayed 20 mg PO DAILYBB 01/02/25 03/09/25 03/09/25 release posaconazole 100 mg tablet,delayed 300 mg PO QDL 01/02/25 03/09/25 03/09/25 release escitalopram oxalate 20 mg tablet 20 mg PO QAM #30 tabs 02/19/25 03/09/25 03/09/25 (Lexapro) acyclovir 400 mg tablet 400 mg PO AMPM 03/09/25 03/09/25 03/09/25 both doses levofloxacin 500 mg tablet 500 mg PO QPM 03/09/25 03/09/25 03/09/25 ondansetron HCl 8 mg tablet 8 mg PO UD PRN Nausea And Vomiting 03/09/25 03/09/25 Unknown potassium chloride 20 mEq 20 meq PO QAM 03/09/25 03/09/25 03/09/25 tablet,extended release Active Medications Generic Name Dose Route Start Last Admin Trade Name Freq PRN Reason Stop Dose Admin Acyclovir 400 mg 03/10/25 09:00 03/11/25 08:28 Acyclovir 400 Mg Tab PO 04/09/25 08:59 400 mg AMHS JAYLENE Administration Escitalopram Oxalate 20 mg 03/10/25 09:00 03/11/25 08:28 Escitalopram Oxalate 20 Mg Tab PO 04/09/25 08:59 20 mg QAM JAYLENE Administration Prochlorperazine 10 mg/ 10 mls @ 5 mls/min 03/09/25 22:03 03/10/25 14:40 Syringe IV 04/08/25 22:02 5 mls/min Q6H PRN Administration Nausea And Vomiting Acetaminophen 1,000 mg in 100 mls @ 400 mls/hr 03/09/25 22:08 03/10/25 21:50 Ofirmev IV 03/12/25 22:07 Infused Q8H PRN Infusion Pain or Fever Ceftriaxone Sodium 2,000 mg in 50 mls @ 100 mls/hr 03/10/25 13:30 03/11/25 14:17 Rocephin IV 03/24/25 13:29 Infused Q24H JAYLENE Infusion Levofloxacin 500 mg 03/10/25 21:00 03/10/25 21:35 Levofloxacin 500 Mg Tab PO 04/09/25 20:59 500 mg QPM JAYLENE Administration Protocol Lisinopril 10 mg 03/11/25 09:00 03/11/25 08:28 Lisinopril 10 Mg Tab PO 04/10/25 08:59 10 mg QAM JAYLENE Administration Posaconazole ~ Non- 3 each 03/11/25 11:30 03/11/25 11:12 Formulary Patient's PO 04/10/25 11:29 3 each Own Med QDL JAYLENE Administration Pantoprazole Sodium 40 mg 03/11/25 09:00 03/11/25 08:27 Pantoprazole 40 Mg Tab PO 04/10/25 08:59 40 mg DAILY JAYLENE Administration Potassium Chloride 20 meq 03/10/25 09:00 03/11/25 08:27 Potassium Chloride Crtab 20 Meq Tabcr PO 04/09/25 08:59 20 meq QAM JAYLENE Administration
--- NOTE | 2025-03-11 11:11 | Hospitalist Progress Note ---
Date of Service March 11, 2025 Assessment & Plan (1) Neutropenic fever: (2) Antineoplastic chemotherapy induced pancytopenia: (3) AML (acute myeloblastic leukemia): (4) Hypomagnesemia: Plan The pt is a 54y/o F w/ a PMHx significant for antineoplastic chemotherapy induced pancytopenia, neutropenic fever, AML, vitamin D deficiency, history of MDS, GERD w/out esophagitis, severe NIKHIL on CPAP, anxiety, and migraine who presents with fever and soreness #Neutropenic fever/antineoplastic chemotherapy induced pancytopenia/AML - Most recent induction + IV and oral chemo on 02/26/2025; Chest x-ray was negative, respiratory bio fire test negative, urinalysis negative in ED. Echo 03/10 revealed WNL LV systolic function w/ no wall motion abnormalities EF of 60-65%. No significant valvular pathology or vegetation. No significant changes from 07/15/22. Pt received 2 bags of pRBCs and 2 bags of Platelets on 03/10 without pre-treatment; pt developed fever of 100.2 during second unit of blood. Pathology states that they believe this to be a febrile nonhemolytic transfusion reaction but cannot r/o the possibility that the fever was d/t neutropenic fever. -Consult Oncology; awaiting formal recommendations; did recommend 2 more units of pRBCs and platelets each; pre-tx w/ Tylenol and Benadryl -Consult ID; recommenced removal of PICC line + pursue IGNACIO if BCx are persistently positive -Blood Cultures: 03/09 - preliminary strep mitis/oralis grp 03/10 - repeat, pending 03/11 - second repeat, pending -Continue IV Ceftriaxone -Discontinue IV Vancomycin -Continue chronic suppressive therapy: levofloxacin, posaconazole, and acyclovir -Neutropenic precautions -Acetaminophen prn for mild pain/fever -Zofran prn Nausa; Compazine prn nausea (secondary) -CBC w/ diff, CMP Pt noticed darker stools, will check FOBT #Hypomagnesemia - RESOLVED; 1.5 on admission; resolved with tx #HTN - no acute concerns; Continue Lisinopril 10mg #GERD - no acute concerns -HOLD omeprazole -Continue Pantoprazole #Moderately severe NIKHIL - CPAP at home; did not bring it -CPAP HS #Anxiety - no acute concerns; Continue escitalopram 20 mg daily #Rash on buttock - no signs of infection; suspect related to dry skin #Morbid obesity with BMI 41-BMI 41 with risk factors: Moderately severe obstructive sleep apnea, AML -monitor Weight, I&O Dispo: Continue Med/Tele - awaiting clear BC VTE proph: SCDs, defer chemical prophylaxis s/t thrombocytopenia Admission and Anticipated Discharge Date Admission Date: March 09, 2025 Subjective Pt was sitting in bed today in NAD, pleasant. Pt states that she has more energy today and is feeling much better than yesterday. Discussed BC results with pt + relation to GI carlos. Pt admits that she did have a lesion on the right side of her tongue from 12/2027 until approximately 1 month [employer]. Pt denied having any active lesions in her mouth currently. She notes that she is no longer feeling nauseous this AM and is regaining her appetite. She was able to eat cereal for breakfast. Pt does admit to feeling occasional palpitations but denies any chest pain. Pt denies any sore throat, congestion, chills, H/A, SOB, abd pain/discomfort, and changes in bladder habits. Pt admits to experiencing some darker stools and diarrhea following admission; she notes that this occurred last time she was admitted for IV antibiotics but is concerned that it could be something else. Telemetry: Sinus 90s-100s Review of Systems Review of Systems: All systems reviewed & are unremarkable except as noted in Subjective Physical Exam Physical Exam: General: Pt is a 55 y/o morbidly obese F in NAD in bed. VS: reviewed - remarkable for tachycardia Skin: PICC line removed w/ site bandaged; did not visualize buttocks directly; skin otherwise warm and dry; no lesions or ulcerations Respiratory: CTA bilat, no adventitious sounds noted. Chest expansion is full and symmetrical Cardio: RRR, mild murmur Abdomen: Round, normoactive BS x4, nontender to palpation MSK: FROM of extremities, no deformities Extremities: no edema Neuro: A&Ox3, cooperative Results & Data Results & Data Vital Signs (Past 12 Hours) Vital Signs Temp Pulse Pulse Resp BP BP Pulse Ox 03/11/25 10:53 97.7 F 83 18 131/84 95 03/11/25 08:49 03/11/25 07:33 98.8 F 98 H 20 123/79 91 03/11/25 07:13 95 H 03/11/25 03:50 98.2 F 97 H 20 118/76 95 03/11/25 01:00 Pulse Ox O2 Del Method O2 Del Method O2 Flow Rate 03/11/25 10:53 0 03/11/25 08:49 Room Air 03/11/25 07:33 Room Air 03/11/25 07:13 03/11/25 03:50 Room Air 03/11/25 01:00 95 Room Air Laboratory Results Reviewed: CBC, CMP, Magnesium, Urinalysis PG Care Time/CCT Total # of Minutes Spent Total Time Spent with Patient: Total time spent is greater than 50% in coordination of care (as documented) at patient's floor/unit and/or counseling patient: Coding Level of Care Code 74703 SUB INP/OBS CARE 3/50MIN Diagnoses Neutropenic fever D70.9; R50.81 Antineoplastic chemotherapy induced pancytopenia D61.810; T45.1X5A AML (acute myeloblastic leukemia) C92.00 Hypomagnesemia E83.42
[2025-03-11] MEDS ORDERED: Nursing to Pharmacy Communication SCH (15:15)
--- NOTE | 2025-03-11 16:59 | Hematology/Oncology Prog Note ---
Date of Service March 11, 2025 Assessment & Plan (1) Neutropenic fever: (2) Symptomatic anemia: (3) AML (acute myeloblastic leukemia): Plan Doing better clinically. Recommend transfusing with 2 units PRBC, 2 units platelet today for severe anemia and thrombocytopenia. Continue treatment for infection as recommended by infectious disease Admission and Anticipated Discharge Date Admission Date: March 09, 2025 Subjective She states that she is feeling better today. Denies fever or chills. Results & Data Vital Signs (Past 12 Hours) Vital Signs Temp Pulse Pulse Resp BP BP Pulse Ox 03/11/25 16:25 37.1 C 98 H 18 115/75 95 03/11/25 15:25 37.1 C 105 H 18 127/81 98 03/11/25 14:55 37.0 C 98 H 18 114/69 97 03/11/25 14:40 37.2 C 102 H 18 130/80 96 03/11/25 14:22 36.9 C 105 H 18 125/80 98 03/11/25 14:09 36.7 C 100 H 18 102/69 95 03/11/25 13:58 100 H 03/11/25 12:57 36.8 C 99 H 18 105/68 97 03/11/25 11:57 36.8 C 91 H 18 124/75 96 03/11/25 11:27 36.7 C 100 H 18 111/74 95 03/11/25 11:12 36.9 C 90 18 118/78 95 03/11/25 10:53 36.5 C 83 18 131/84 95 03/11/25 08:49 03/11/25 07:33 37.1 C 98 H 20 123/79 91 03/11/25 07:13 95 H O2 Del Method O2 Flow Rate 03/11/25 16:25 0 03/11/25 15:25 0 03/11/25 14:55 0 03/11/25 14:40 0 03/11/25 14:22 0 03/11/25 14:09 0 03/11/25 13:58 03/11/25 12:57 0 03/11/25 11:57 0 03/11/25 11:27 0 03/11/25 11:12 0 03/11/25 10:53 0 03/11/25 08:49 Room Air 03/11/25 07:33 Room Air 03/11/25 07:13
[2025-03-11] MEDS: ACETAMINOPHEN 500 MG TAB ONE (17:14)
[2025-03-11] MEDS: diphenhydrAMINE 50 MG/ML VIAL IV STA (17:14)
[2025-03-11] MEDS: ACETAMINOPHEN 500 MG TAB PO ONE (17:14)
[2025-03-12] MEDS ORDERED: PANTOPRAZOLE BOLUS/DRIP IV STA (06:46)
[2025-03-12] MEDS: ONDANSETRON INJ 2 MG/ML 2 ML VIAL IV PRN (06:50)
[2025-03-12] MEDS: LORazepam Inj 0.5 MG in SYRINGE 0.25 ML IV STA (06:53)
[2025-03-12] MEDS: PANTOprazole 40 MG in DEXTROSE 5% MINI-B 100 ML IV SCH (07:15)
[2025-03-12 07:53] LABS: Hematocrit (blood only) 18.7 % (37.0-47.0); Hemoglobin 6.7 g/dl (12.0-16.0)
[2025-03-12 07:54] LABS: Mean Corpuscular Hemoglobin 28.5 pg (25.0-34.0); Mean Corpuscular Volume 79.6 fL (80.0-100.0); Platelet Count 8 K/uL (130-400); RDW Standard Deviation 37.9 fL (36.4-46.3); Red Blood Count 2.35 M/uL (4.20-5.40); White Blood Count 0.07 K/ul (4.8-10.8)
[2025-03-12 08:16] LABS: Alanine Aminotransferase 14.0 U/L (7-52); Albumin Globulin Ratio 1.1 (0.9-2); Albumin Level 3.1 gm/dl (3.4-5.0); Alkaline Phosphatase 65.0 U/L (34-104); Anion Gap 7.0 (3-11); Bilirubin,Total 0.7 mg/dl (0.2-1.0); Blood Urea Nitrogen 25.0 mg/dl (6-23); Calcium 8.8 mg/dl (8.6-10.3); Carbon Dioxide 27.0 mmol/L (21-32); Chloride 104.0 mmol/L (98-107); Creatinine Clr Calc Pharmacy 115.5 ml/min; Globulin 2.8 gm/dl (2.5-4.0); Glucose 138.0 mg/dl (70-99(Fasting)); Potassium 3.0 mmol/L (3.5-5.1); Sodium 138.0 mmol/L (136-145); Total Protein 5.9 gm/dl (6.0-8.3)
[2025-03-12] MEDS ORDERED: SODIUM CHLORIDE 0.9% 100 ML IV PRN (09:15)
--- NOTE | 2025-03-12 09:48 | Hospitalist Progress Note ---
Date of Service March 12, 2025 Assessment & Plan (1) Neutropenic fever: (2) Antineoplastic chemotherapy induced pancytopenia: (3) AML (acute myeloblastic leukemia): (4) Hypomagnesemia: Plan The pt is a 54y/o F w/ a PMHx significant for antineoplastic chemotherapy induced pancytopenia, neutropenic fever, AML, vitamin D deficiency, history of MDS, GERD w/out esophagitis, severe NIKHIL on CPAP, anxiety, and migraine who presents with fever and soreness #Neutropenic fever/antineoplastic chemotherapy induced pancytopenia/AML - Most recent induction + IV and oral chemo on 02/26/2025; Chest x-ray was negative, respiratory bio fire test negative, urinalysis negative in ED. Echo 03/10 revealed WNL LV systolic function w/ no wall motion abnormalities EF of 60-65%. No significant valvular pathology or vegetation. No significant changes from 07/15/22. Pt received 2 bags of pRBCs and 2 bags of Platelets on 03/10 without pre-treatment; pt developed fever of 100.2 during second unit of blood. Pathology states that they believe this to be a febrile nonhemolytic transfusion reaction but cannot r/o the possibility that the fever was d/t neutropenic fever. -Consult Oncology; Hold chemotherapy. Continue to transfuse for Hgb below 7.5; consider outpatient bone-marrow biopsy if cytopenias persist. -Consult ID; recommenced removal of PICC line + pursue IGNACIO if BCx are persistently positive -Blood Cultures: 03/09 - preliminary strep mitis/oralis grp 03/10 - repeat, NGTD 03/11 - second repeat, NGTD -Continue IV Ceftriaxone -Continue chronic suppressive therapy: levofloxacin, posaconazole, and acyclovir -Neutropenic precautions -Acetaminophen prn for mild pain/fever -Zofran prn Nausa; Compazine prn nausea (secondary) -CBC w/ diff, CMP #Pos FOBT - Pt noticed darker stools 03/11 + little change to Hgb + Platelets after 4 bags ea. -Consult GI; will follow, pt is currently too high risk for endoscopic evaluation - pt states that GI would want platelets at 50 before reconsideration -START IV protonix per GI #Hypomagnesemia - RESOLVED; 1.5 on admission; resolved with tx #HTN - no acute concerns; Continue Lisinopril 10mg #GERD - no acute concerns -HOLD omeprazole -Discontinue PO Pantoprazole -IV Pantoprazole started (as above) #Moderately severe NIKHIL - CPAP at home; did not bring it -CPAP HS #Anxiety - Pt notes extreme anxiety about GI bleed w/ low platelets - requested prn ativan home dose; confirmed w/ PDMP today by me -Continue escitalopram 20 mg daily -Prn Ativan 0.5mg po #Rash on buttock - no signs of infection; suspect related to dry skin #Morbid obesity with BMI 41-BMI 41 with risk factors: Moderately severe obstructive sleep apnea, AML -monitor Weight, I&O Dispo: Continue Med/Tele - awaiting clear BC VTE proph: deferred d/t severe pancytopenia Admission and Anticipated Discharge Date Admission Date: March 09, 2025 Supervising Physician Co-Signing Physician Notes PA Supervision Note: I did not personally see or examine the patient today, but I verified all black points of REESE Haney's assessment and plan with the following exceptions/additions: None Subjective Pt was laying in bed today in NAD. Pt notes that she is continuing to feel better but notes that she is feeling anxious after talking to GI about her possible GI bleed. Pt notes that this AM she was so anxious, she had a small episode of emesis with a small some blood-tinged sputum; she denies feeling nauseas prior to episode. She is requesting to have her prn Ativan continued while in the hospital to help ease her nerves. She states that GI came to see her this AM and notes that they told her that she wouldn't be a good candidate to scope - that they would like her platelets to be >50. Pt denies sore throat, congestion, cough, CP, SOB, abd discomfort, and nausea. Med Tele: Sinus 100-120s w/ rare PVCs Review of Systems Review of Systems: All systems reviewed & are unremarkable except as noted in Subjective Physical Exam Physical Exam: General: Pt is a 55 y/o morbidly obese F in NAD in bed. VS: reviewed - remarkable for tachycardia Skin: PICC line removed w/ site bandaged; did not visualize buttocks directly; skin otherwise warm and dry; no lesions or ulcerations Respiratory: CTA bilat, no adventitious sounds noted. Chest expansion is full and symmetrical Cardio: RRR, mild murmur Abdomen: Round, normoactive BS x4, nontender to palpation MSK: FROM of extremities, no deformities Extremities: no edema Neuro: A&Ox4, cooperative Results & Data Results & Data Vital Signs (Past 12 Hours) Vital Signs Temp Pulse Pulse Pulse Resp BP BP 03/12/25 07:13 99 H 03/12/25 07:07 98.8 F 93 H 18 118/71 03/12/25 03:37 99.3 F 100 H 20 125/77 03/12/25 01:00 03/12/25 00:50 98.8 F 95 H 18 111/72 03/12/25 00:48 98.8 F 95 H 18 111/72 03/11/25 23:56 99.5 F 100 H 14 110/70 03/11/25 22:56 98.4 F 97 H 14 104/69 03/11/25 22:26 98.2 F 95 H 14 109/73 03/11/25 22:25 98.2 F 95 H 14 109/73 03/11/25 22:11 98.8 F 96 H 14 120/80 03/11/25 21:59 93 H 03/11/25 21:54 98.2 F 101 H 14 112/73 Pulse Ox Pulse Ox O2 Del Method O2 Del Method 03/12/25 07:13 03/12/25 07:07 96 Room Air 03/12/25 03:37 95 Room Air 03/12/25 01:00 97 Room Air 03/12/25 00:50 96 03/12/25 00:48 96 03/11/25 23:56 98 03/11/25 22:56 98 03/11/25 22:26 97 03/11/25 22:25 97 03/11/25 22:11 100 03/11/25 21:59 03/11/25 21:54 99 Laboratory Results Reviewed CBC, CMP, FOBT PG Care Time/CCT Total # of Minutes Spent Total Time Spent with Patient: Total time spent is greater than 50% in coordination of care (as documented) at patient's floor/unit and/or counseling patient: Coding Level of Care Code 31933 SUB INP/OBS CARE 3/50MIN Diagnoses Neutropenic fever D70.9; R50.81 Antineoplastic chemotherapy induced pancytopenia D61.810; T45.1X5A AML (acute myeloblastic leukemia) C92.00 Hypomagnesemia E83.42
[2025-03-12] MEDS: POTASSIUM CHLORIDE CRTAB 20 MEQ TABCR PO SCH (09:56)
[2025-03-12] MEDS: LORazepam 0.5 MG TAB PO STA (10:08)
--- NOTE | 2025-03-12 11:08 | Gastrointestinal Consultation ---
Date of Consultation March 12, 2025 Assessment & Plan (1) Thrombocytopenia: (2) Pancytopenia: (3) Heme positive stool: Plan Patient with recent dark stools that tested heme positive and an episode of emesis with blood in the sputum. Given her pancytopenia/thrombocytopenia, would be high risks for endoscopic evaluation. Would hold off unless she develops significant active bleeding. Case discussed with Dr. Mcgee. - continue to monitor labs and transfuse as needed. currently planned for more units of prbc and platelets. - continue with protonix drip. - would recommend supportive care. - Further recommendations to come with Supervising GI provider on medical rounds. Please see co-signature comments. Supervising Physician Co-Signing Physician Notes I saw and examined this patient with our nurse practitioner and agree with her assessment and plan. Patient with significant pancytopenia likely mostly related to recent chemotherapy now her nel sepsis on antibiotics. Possible history of melena stool Hemoccult positive. This is occurred previously during chemotherapy treatments. Likely etiology could be chemotherapy induced mucositis of the GI tract. Not a candidate for endoscopic intervention at this time in light of pancytopenia. She did have a recent colonoscopy which was unremarkable. Agree with PPI therapy assess once pancytopenia resolves. History of Present Illness Reason for Consultation: +FOBT Requesting Physician: Rosangela SHANKS Attending Physician: Mary Raman MD History of Present Illness Patient is a 54 year old female with a past medical history including antineoplastic chemotherapy induced pancytopenia, neutropenic fever, AML, vitamin D deficiency, history of MDS, GERD without esophagitis, severe NIKHIL on CPAP, anxiety, and migraine. For her AML, she underwent underwent induction and then IV and oral chemotherapy, with last treatment on 02/26/2025. Her counts have been stable but persistently low. She proceeded to the ED when she started to feel sore all over, and had some intermittent nausea. She checked a temperature at home and reports fevers. She presented to the emergency department for assessment of neutropenic fever. Chest x-ray was negative, respiratory bio fire test negative, urinalysis negative. Emergency department spoke with her oncologist Dr. Hyman, who recommended admission and treatment for neutropenic fever. GI has been asked to see due to recently noticing some dark stools the past 2 days. they tested occult positive. she tells me that she is not having increased bowel movements, but they are darker. she admits this did make her nervous this morning and had one episode of emesis with some blood tinged sputum. the remainder of the GI ros are unremarkable. 03/12/25 wbc 00.7, hgb 6.7, hct 18.7 plts 8, Na 138, K 3, BUN 25, Cr 0.62, T bili 0.7, AST 8, ALT 14, ALK 65. occult blood positive stools. colonosocpy 06/28/24 Internal hemorrhoids. Allergies Allergy/AdvReac Type Severity Reaction Status Date / Time No Known Allergies Allergy NONE Verified 03/07/25 09:07 Home Medications Medication Instructions Recorded Confirmed Type Auto Titrating CPAP #1 ea 12/11/20 03/09/25 Rx omeprazole 20 mg capsule,delayed 20 mg PO DAILYBB 01/02/25 03/09/25 History release posaconazole 100 mg tablet,delayed 300 mg PO QDL 01/02/25 03/09/25 History release escitalopram oxalate 20 mg tablet 20 mg PO QAM #30 tabs 02/19/25 03/09/25 Rx (Lexapro) acyclovir 400 mg tablet 400 mg PO AMPM 03/09/25 03/09/25 History levofloxacin 500 mg tablet 500 mg PO QPM 03/09/25 03/09/25 History ondansetron HCl 8 mg tablet 8 mg PO UD PRN Nausea And Vomiting 03/09/25 03/09/25 History potassium chloride 20 mEq 20 meq PO QAM 03/09/25 03/09/25 History tablet,extended release Patient History Medical History (Updated 03/12/25 @ 11:05 by Genaro Calvo PA-C) Hx of renal calculi passed on own Hx of migraines once per month Anxiety Myelodysplasia (myelodysplastic syndrome) has lab work monthly-- follows with Dr. Hyman [facility] Cardiomegaly moderate on 10/2023 CXR work up in past, no issues Moderate obstructive sleep apnea cpap Myalgia and myositis GERD (gastroesophageal reflux disease) Rheumatoid arthritis no meds, occasional joint pain Hypertension Surgical History History of bone marrow biopsy x2 at [facility], 1 in office Hx of colonoscopy (06/28/24) [facility] Hx of wisdom tooth extraction History of surgery (benign) fatty tissue removed under left arm History of esophagogastroduodenoscopy (EGD) History of cholecystectomy Family History Mother Father Stroke syndrome Stroke Aunt Breast cancer Colorectal cancer Grandmother (Maternal) Ovarian cancer Denies family history of Prostate cancer Diabetes Myocardial infarction Lung cancer Hypertension Social History Smoking Status: Never smoker Second Hand Exposure: Yes (parents smoked); Do You Dip or Chew Tobacco: No; Hx Alcohol Use: No Hx Substance Use: No Preferred Language: [place] Leonean Communication Ability: Effective Visual Impairment: No Limitations Hearing Ability: Normal 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 Required: No Beliefs That Will Affect Care: None marital status: Current Living Situation: Alone Current Living Situation Comment: friend lives with pt current occupational status: employed 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 Feels Safe at Home: Yes Childhood Exposure to Second-Hand Smoke: Yes caffeine: Yes Dental Care, Regularly: Yes Physical Activity Frequency: 3-4 Times per Week Seatbelt Use: sometimes Sunscreen Use: Yes Assistive Devices: CPAP Review of Systems Review of Systems: All systems reviewed & are unremarkable except as noted in HPI & below Physical Exam Constitutional: WD/WN, vitals as above Respiratory: normal respiratory effort, lungs clear to auscultation Cardiovascular: Rate/Rhythm: regular rate and regular rhythm Gastrointestinal (Abdomen): normal bowel sounds, soft, nontender, no hepatosplenomegaly Psychiatric: Orientation: alert and oriented x 3 Affect: euthymic affect Results & Data Vital Signs (Past 12 Hours) Vital Signs Temp Pulse Pulse Pulse Resp BP BP 03/12/25 10:39 98.1 F 92 H 18 121/63 03/12/25 10:29 03/12/25 10:18 98.2 F 98 H 18 120/77 03/12/25 07:13 99 H 03/12/25 07:07 98.8 F 93 H 18 118/71 03/12/25 03:37 99.3 F 100 H 20 125/77 03/12/25 01:00 03/12/25 00:50 98.8 F 95 H 18 111/72 03/12/25 00:48 98.8 F 95 H 18 111/03/11/25 23:56 99.5 F 100 H 14 110/70 Pulse Ox Pulse Ox O2 Del Method O2 Del Method O2 Flow Rate 03/12/25 10:39 95 0 03/12/25 10:29 Room Air 03/12/25 10:18 99 0 03/12/25 07:13 03/12/25 07:07 96 Room Air 03/12/25 03:37 95 Room Air 03/12/25 01:00 97 Room Air 03/12/25 00:50 96 03/12/25 00:48 96 03/11/25 23:56 98 Laboratory Results Laboratory Results - last 48 hr 03/09/25 03/10/25 03/10/25 19:12 22:36 23:44 WBC 0.06 L* RBC 2.40 L Hgb 6.5 L* Hct 18.4 L* MCV 76.7 L MCH 27.1 MCHC 35.3 RDW Std Deviation 37.3 RDW Coeff of Kota 13.4 Plt Count 5 L* D Immature Gran % (Auto) Cancelled Neut % (Auto) Cancelled Lymph % (Auto) Cancelled Donley % (Auto) Cancelled Eos % (Auto) Cancelled Baso % (Auto) Cancelled Reticulocyte % (Auto) 0.49 L Neut # (Auto) Cancelled Lymph # (Auto) Cancelled Donley # (Auto) Cancelled Eos # (Auto) Cancelled Baso # (Auto) Cancelled Reticulocyte # 0.010 L Immature Gran # (Auto) Cancelled Neutrophils % (Manual) Cancelled Band Neutrophils % Cancelled Lymphocytes % (Manual) Cancelled Prolymphocyte % Cancelled Reactive Lymphs % (Man) Cancelled Monocytes % (Manual) Cancelled Eosinophils % (Manual) Cancelled Basophils % (Manual) Cancelled Metamyelocytes % (Man) Cancelled Myelocytes % (Man) Cancelled Promyelocytes % (Man) Cancelled Blast Cells % (Manual) Cancelled Plasma Cell % (Manual) Cancelled Other Cells % Cancelled Nucleated RBC % Cancelled Neutrophils # (Manual) Cancelled Band Neutrophils # Cancelled Total Absolute Neuts Cancelled Lymphocytes # (Manual) Cancelled Prolymphocyte # Cancelled Reactive Lymphs # Cancelled Total Abs Lymphocytes Cancelled Monocytes # (Manual) Cancelled Eosinophils # (Manual) Cancelled Basophils # (Manual) Cancelled Metamyelocytes # (Man) Cancelled Myelocytes # (Manual) Cancelled Promyelocytes # (Man) Cancelled Blast Cells # (Man) Cancelled Plasma Cell # (Manual) Cancelled Other Cells # Cancelled Nucleated RBCs # (Man) Cancelled Hypersegmented Neuts Cancelled Hyposegmented Neuts Cancelled Hypogranular Neuts Cancelled Large Granular Lymphs Cancelled # Lrg Granular Lymphs Cancelled Hairy Cells Cancelled Smudge Cells Cancelled Toxic Granulation Cancelled Toxic Vacuolation Cancelled Dohle Bodies Cancelled Iris Rods Cancelled Hypogranular Platelets Cancelled Giant Platelets Cancelled Platelet Satelliting Cancelled RBC Morphology Cancelled Polychromasia Cancelled Hypochromasia Cancelled Poikilocytosis Cancelled Basophilic Stippling Cancelled Anisocytosis Cancelled Microcytosis Cancelled Macrocytosis Cancelled Spherocytes Cancelled Pappenheimer Bodies Cancelled Sickle Cells Cancelled Target Cells Cancelled Tear Drop Cells Cancelled Ovalocytes Cancelled Stomatocytes Cancelled [place] Bodies Cancelled Echinocytes Cancelled Acanthocytes (Spur) Cancelled Rouleaux Cancelled RBC Agglutinates Cancelled Schistocytes Cancelled Sezary Cell Cancelled Haptoglobin 158 Sodium Potassium Chloride Carbon Dioxide Anion Gap BUN Creatinine Est Cr Clr Drug Dosing eGFR BUN/Creatinine Ratio Glucose Calcium Magnesium Total Bilirubin AST ALT Alkaline Phosphatase Lactate Dehydrogenase 167 Total Protein Albumin Globulin Albumin/Globulin Ratio Urine Color Urine Appearance Urine pH Ur Specific [place] Urine Protein Urine Glucose (UA) Urine Ketones Urine Blood Urine Nitrite Urine Bilirubin Urine Urobilinogen Ur Leukocyte Esterase Urine Comment Stool Occult Bld Scrn Blood Parasites ID Cancelled Blood Type O Positive Antibody Screen NEGATIVE Crossmatch See Detail Transfusion React Date 03/10/25 Transfusion React Time 2211 Tx React Symptoms FEVER Reaction Clerical Check None Found Lab Clerical Err Check None Found React Component Return PCLR Volume Returned 295 Pre-Trans Blood Type O POSITIVE Pre-Trans Vis Hemolysis No Pre-Trans MARIA ELENA Negative Pre-Trans MARIA ELENA IgG Neg Pre-Trans MARIA ELENA Poly Neg Pre-Trans MARIA ELENA C3b, C3d Neg Post-Trans Blood Type O POSITIVE Post-Tx Visible Hemolys No Post-Trans MARIA ELENA Negative Post-Trans MARIA ELENA IgG Neg Post-Trans MARIA ELENA Poly Neg Post-Trans MARIA ELENA C3b, C3d Neg Post-Trans Ur Hemoglobin Reaction Path Interpret Transfusion Serv Com 03/11/25 03/11/25 03/11/25 01:00 01:00 07:10 WBC RBC Hgb Hct MCV MCH MCHC RDW Std Deviation RDW Coeff of Kota Plt Count Immature Gran % (Auto) Neut % (Auto) Lymph % (Auto) Donley % (Auto) Eos % (Auto) Baso % (Auto) Reticulocyte % (Auto) Neut # (Auto) Lymph # (Auto) Donley # (Auto) Eos # (Auto) Baso # (Auto) Reticulocyte # Immature Gran # (Auto) Neutrophils % (Manual) Band Neutrophils % Lymphocytes % (Manual) Prolymphocyte % Reactive Lymphs % (Man) Monocytes % (Manual) Eosinophils % (Manual) Basophils % (Manual) Metamyelocytes % (Man) Myelocytes % (Man) Promyelocytes % (Man) Blast Cells % (Manual) Plasma Cell % (Manual) Other Cells % Nucleated RBC % Neutrophils # (Manual) Band Neutrophils # Total Absolute Neuts Lymphocytes # (Manual) Prolymphocyte # Reactive Lymphs # Total Abs Lymphocytes Monocytes # (Manual) Eosinophils # (Manual) Basophils # (Manual) Metamyelocytes # (Man) Myelocytes # (Manual) Promyelocytes # (Man) Blast Cells # (Man) Plasma Cell # (Manual) Other Cells # Nucleated RBCs # (Man) Hypersegmented Neuts Hyposegmented Neuts Hypogranular Neuts Large Granular Lymphs # Lrg Granular Lymphs Hairy Cells Smudge Cells Toxic Granulation Toxic Vacuolation Dohle Bodies Iris Rods Hypogranular Platelets Giant Platelets Platelet Satelliting RBC Morphology Polychromasia Hypochromasia Poikilocytosis Basophilic Stippling Anisocytosis Microcytosis Macrocytosis Spherocytes Pappenheimer Bodies Sickle Cells Target Cells Tear Drop Cells Ovalocytes Stomatocytes [place] Bodies Echinocytes Acanthocytes (Spur) Rouleaux RBC Agglutinates Schistocytes Sezary Cell Haptoglobin Sodium 137 Potassium 3.3 L Chloride 103 Carbon Dioxide 27 Anion Gap 7 BUN 12 Creatinine 0.51 L Est Cr Clr Drug Dosing 140.7 eGFR 110.17 BUN/Creatinine Ratio 23.5 H Glucose 126 H Calcium 9.3 Magnesium 1.8 Total Bilirubin 0.9 AST 12 L ALT 22 Alkaline Phosphatase 89 Lactate Dehydrogenase Total Protein 6.4 Albumin 3.4 Globulin 3.0 Albumin/Globulin Ratio 1.1 Urine Color Yellow Urine Appearance Clear Urine pH 6.0 Ur Specific [place] 1.007 Urine Protein Negative Urine Glucose (UA) Negative Urine Ketones Negative Urine Blood Negative Negative Urine Nitrite Negative Urine Bilirubin Negative Urine Urobilinogen Negative Ur Leukocyte Esterase Negative Urine Comment Stool Occult Bld Scrn Blood Parasites ID Blood Type Antibody Screen Crossmatch Transfusion React Date Transfusion React Time Tx React Symptoms Reaction Clerical Check Lab Clerical Err Check React Component Return Volume Returned Pre-Trans Blood Type Pre-Trans Vis Hemolysis Pre-Trans MARIA ELENA Pre-Trans MARIA ELENA IgG Pre-Trans MARIA ELENA Poly Pre-Trans MARIA ELENA C3b, C3d Post-Trans Blood Type Post-Tx Visible Hemolys Post-Trans MARIA ELENA Post-Trans MARIA ELENA IgG Post-Trans MARIA ELENA Poly Post-Trans MARIA ELENA C3b, C3d Post-Trans Ur Hemoglobin Reaction Path Interpret Transfusion Serv Com 03/11/25 03/12/25 03/12/25 07:11 06:20 07:11 WBC 0.04 L* 0.07 L* RBC 2.25 L 2.35 L Hgb 6.2 L* 6.7 L* Hct 17.3 L* 18.7 L* MCV 76.9 L 79.6 L MCH 27.6 28.5 MCHC 35.8 35.8 RDW Std Deviation 36.6 37.9 RDW Coeff of Kota 13.3 13.3 Plt Count 3 L* 8 L* D Immature Gran % (Auto) Neut % (Auto) Lymph % (Auto) Donley % (Auto) Eos % (Auto) Baso % (Auto) Reticulocyte % (Auto) Neut # (Auto) < 0.50 L* < 0.50 L* Lymph # (Auto) Donley # (Auto) Eos # (Auto) Baso # (Auto) Reticulocyte # Immature Gran # (Auto) Neutrophils % (Manual) Band Neutrophils % Lymphocytes % (Manual) Prolymphocyte % Reactive Lymphs % (Man) Monocytes % (Manual) Eosinophils % (Manual) Basophils % (Manual) Metamyelocytes % (Man) Myelocytes % (Man) Promyelocytes % (Man) Blast Cells % (Manual) Plasma Cell % (Manual) Other Cells % Nucleated RBC % Neutrophils # (Manual) Band Neutrophils # Total Absolute Neuts Lymphocytes # (Manual) Prolymphocyte # Reactive Lymphs # Total Abs Lymphocytes Monocytes # (Manual) Eosinophils # (Manual) Basophils # (Manual) Metamyelocytes # (Man) Myelocytes # (Manual) Promyelocytes # (Man) Blast Cells # (Man) Plasma Cell # (Manual) Other Cells # Nucleated RBCs # (Man) Hypersegmented Neuts Hyposegmented Neuts Hypogranular Neuts Large Granular Lymphs # Lrg Granular Lymphs Hairy Cells Smudge Cells Toxic Granulation Toxic Vacuolation Dohle Bodies Iris Rods Hypogranular Platelets Giant Platelets Platelet Satelliting RBC Morphology Polychromasia Hypochromasia Poikilocytosis Basophilic Stippling Anisocytosis Microcytosis Macrocytosis Spherocytes Pappenheimer Bodies Sickle Cells Target Cells Tear Drop Cells Ovalocytes Stomatocytes [place] Bodies Echinocytes Acanthocytes (Spur) Rouleaux RBC Agglutinates Schistocytes Sezary Cell Haptoglobin Sodium 138 Potassium 3.0 L Chloride 104 Carbon Dioxide 27 Anion Gap 7 BUN 25 H Creatinine 0.62 Est Cr Clr Drug Dosing 115.5 eGFR 105.10 BUN/Creatinine Ratio 40.3 H Glucose 138 H Calcium 8.8 Magnesium Total Bilirubin 0.7 AST 8 L ALT 14 Alkaline Phosphatase 65 Lactate Dehydrogenase Total Protein 5.9 L Albumin 3.1 L Globulin 2.8 Albumin/Globulin Ratio 1.1 Urine Color Urine Appearance Urine pH Ur Specific [place] Urine Protein Urine Glucose (UA) Urine Ketones Urine Blood Urine Nitrite Urine Bilirubin Urine Urobilinogen Ur Leukocyte Esterase Urine Comment Stool Occult Bld Scrn Positive A Blood Parasites ID Blood Type Antibody Screen Crossmatch Transfusion React Date Transfusion React Time Tx React Symptoms Reaction Clerical Check Lab Clerical Err Check React Component Return Volume Returned Pre-Trans Blood Type Pre-Trans Vis Hemolysis Pre-Trans MARIA ELENA Pre-Trans MARIA ELENA IgG Pre-Trans MARIA ELENA Poly Pre-Trans MARIA ELENA C3b, C3d Post-Trans Blood Type Post-Tx Visible Hemolys Post-Trans MARIA ELENA Post-Trans MARIA ELENA IgG Post-Trans MARIA ELENA Poly Post-Trans MARIA ELENA C3b, C3d Post-Trans Ur Hemoglobin Reaction Path Interpret Transfusion Serv Com Coding Level of Care Code 19564 IN/OBS CONSULT LVL 4,60M Diagnoses Thrombocytopenia D69.6 Pancytopenia D61.818 Heme positive stool R19.5
[2025-03-12] MEDS: ACETAMINOPHEN 325 MG TAB PO ONE (12:57)
[2025-03-12] MEDS: diphenhydrAMINE 50 MG/ML VIAL IV ONE (12:57)
--- NOTE | 2025-03-12 13:58 | Infectious Disease Progress Nt ---
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 She last received chemotherapy on 02/26/2025. Prior to admission she developed intermittent nausea, body aches and muscle aches. She checked her temperature at home and had a fever of 100.3 prompting evaluation in the ED. She denied any abdominal pain, back pain, diarrhea, constipation, shortness of breath or cough. She has pet dogs at home who are healthy. She denied any recent sick contacts or travel. She has some abrasions on her buttocks which are healing. She also reports that in December 2024, she had fusobacterium and Leptotrichia bacteremia and was evaluated at [facility] and her PICC line was exchanged in the same arm. Since then she has had areas of irritation tape around her PICC line at the tape site but no other problems. She denies any other prosthetics or hardware. Approximately 3 weeks ago she was seen by her dentist for dental x-rays in preparation for stem cell transplant at [facility]. She denies any dental manipulation, cleanings or extractions. She denies any dental or oral pain. In the ED she was febrile with a T of 38.1. On room air. Labs: WBC 0.09, hemoglobin 8, hematocrit 23.3, platelets 5. ANC less than 0.50, BUN 12, creatinine 0.65. Urinalysis negative for infection. Respiratory viral panel negative. BC ID grew Streptococcus species which has been identified as Streptococcus oralis/mitis on Bcx. Chest x-ray shows no acute cardiopulmonary disease. Right PICC tip in the mid superior vena cava. She was started on started on vancomycin and cefepime. She is currently receiving ceftriaxone. Infectious disease consulted for neutropenic fever and GPC bacteremia. TTE completed 03/10 shows no significant valvular pathology. No valvular vegetations.Current WBC 0.04, platelets 3 ( 03/11). T m in last 24 hours 37.8 Microbiology: 03/11/25 Blood culture NGTD 03/10/25 blood culture NGTD 03/09/25 blood culture Streptococcus/oralis in 4/4 bottles Prior Microbiology: 12/30/24 Blood culture# 1 Fusobacterium nucleatum in 1/2 ( non viabl for sensi) 12/30/24 Blood culture # 2 Leptotrichia trevisanii ( Pip tazo, erta, clinda , metronidazole S) in 1/2 bottles Antimicrobials/anti-infectives Cefepime 03/09 Ceftriaxone urrent Vancomycin 03/09 - 03/10 Acyclovir prophylaxis Levaquin prophylaxis Posaconazole prophylaxis # Strep mitis/oralis bacteremia # Neutropenic fever # AML ( acute myeloblastic leukemia) on chemotherapy via PICC # Pancytopenia, postchemotherapy # PICC line in since 12/2024 # 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 She is on Levaquin prophylaxis, so I will assume that strep mitis may be resistant or intermediate sensitivity to Levaquin. Agree with ceftriaxone. 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 Like strep mitis/oralis , these are also part of oral carlos. Noted that this bacteremia developed post chemotherapy in 12/2024. She denied mucositis or dental issues then or now. No oral lesions or irritation on exam She states her PICC line was exchanged at same site in 12/2024. 3 weeks ago she was evaluated by dental for preop evaluation prior to stem cell transplant. She reports no dental manipulation/cleanings or extractions. She had oral x- rays done only. Would remove PICC line as possibly seeded. She has some abrasions on the buttocks that are in various stages of healing. No deep wounds. No evidence of acute infection at buttocks. . She has been seen by GI for heme + stool, Thought to be 2/2 possible chemotherapy induced mucositis of the GI tract. Picc line removed on 03/11. Repeat Bcx NGTD 03/12 ANC <0.5, plts8, hgb 6.7 Recommendations; Continue Ceftriaxone 2 g IV daily Follow up 03/10 and 03/11 Bcx, if positive, repeat and check IGNACIO Would not replace until repeat Bcx NG for 72 hours from removal on 03/11 Continue prophylaxis: levaquin, posaconazole, acyclovir If no endocarditis and repeat BCx NG, plan for 14 days of Ceftriaxone post removal of PICC. ID will continue to follow. Ron Cervantes MD, MPH Infectious Disease [facility], [facility] Call [phone] with questions Admission and Anticipated Discharge Date Admission Date: March 09, 2025 Subjective Subsequent visit was provided via telemedicine using two-way real-time interactive telecommunication between the patient and the telemedicine provider. For the duration of the visit, the provider was performing the assessment from a different facility than the patient. This includesuse of bluetooth stethoscope forauscultationperformed by the telepresenter that the telemedicine provider can hear if described in the physical exam. [employer]er contact information: Please call [facility] Call Center [phone]. (Phone Number For Physician Use Only) After establishing a telemedicine visit, patient was: Patient was verified with two unique identifiers and Gave permission to continue telehealth session Time Spent with Patient: Subsequent => 25 min She feels well. Muscle and body aches nearly resolved Picc line removed yesterday Remains neutropenic ( ANC<0.5)/pancytopenic Fevers resolved Repeat Bcx NGTD Seen by GI for heme+ stool Physical Exam Physical Exam: General NAD, pleasant Neck- supple HEENT- At/Nc, anicteric sclera. No oral ulcers, no gum or dental abnormalities. Fair dentition. Abdomen- soft, NT, ND MSK- no joint effusion, No spinal tenderness Skin- buttock: faint erythema with abrasions, no deep wounds. Not tender, No drainage Neuro- AAO times 3 Psych- Normal mood, cooperative Results & Data Vital Signs (Past 12 Hours) Vital Signs Temp Pulse Pulse Pulse Resp BP BP 03/12/25 12:55 37.4 C 99 H 18 117/74 03/12/25 12:55 37.4 C 99 H 18 117/74 03/12/25 12:24 36.9 C 100 H 18 112/72 03/12/25 11:24 36.8 C 97 H 18 98/63 L 03/12/25 10:54 36.9 C 94 H 18 128/78 03/12/25 10:39 36.7 C 92 H 18 121/63 03/12/25 10:29 03/12/25 10:18 36.8 C 98 H 18 120/77 03/12/25 07:13 99 H 03/12/25 07:07 37.1 C 93 H 18 118/71 03/12/25 03:37 37.4 C 100 H 20 125/77 Pulse Ox O2 Del Method O2 Flow Rate 03/12/25 12:55 97 0 03/12/25 12:55 97 0 03/12/25 12:24 95 03/12/25 11:24 93 03/12/25 10:54 98 0 03/12/25 10:39 95 0 03/12/25 10:29 Room Air 03/12/25 10:18 99 0 03/12/25 07:13 03/12/25 07:07 96 Room Air 03/12/25 03:37 95 Room Air Laboratory Results Short CBC 03/12/25 Range/Units 07:11 WBC 0.07 L* (4.8-10.8) K/ul Hgb 6.7 L* (12.0-16.0) g/dl Hct 18.7 L* (37.0-47.0) % Plt Count 8 L* D (130-400) K/uL BMP 03/12/25 07:11 Sodium 138 Potassium 3.0 L Chloride 104 Carbon Dioxide 27 BUN 25 H Creatinine 0.62 Glucose 138 H Calcium 8.8 Liver Function 03/12/25 Range/Units 07:11 Total Bilirubin 0.7 (0.2-1.0) mg/dl AST 8 L (13-39) U/L ALT 14 (7-52) U/L Alkaline Phosphatase 65 (34-104) U/L Albumin 3.1 L (3.4-5.0) gm/dl Microbiology 03/10/25 17:12 Blood Aerobic Blood Culture - Preliminary No growth in Aerobic bottle after 48 hours. 03/10/25 17:12 Blood Anaerobic Blood Culture - Preliminary No growth in Anaerobic bottle after 48 hours. 03/11/25 07:17 Blood Aerobic Blood Culture - Preliminary No growth in Aerobic bottle after 24 hours. 03/11/25 07:17 Blood Anaerobic Blood Culture - Preliminary No growth in Anaerobic bottle after 24 hours. 03/11/25 07:01 Blood Aerobic Blood Culture - Preliminary No growth in Aerobic bottle after 24 hours. 03/11/25 07:01 Blood Anaerobic Blood Culture - Preliminary No growth in Anaerobic bottle after 24 hours. 03/10/25 18:13 Blood Aerobic Blood Culture - Preliminary No growth in Aerobic bottle after 24 hours. 03/10/25 18:13 Blood Anaerobic Blood Culture - Preliminary No growth in Anaerobic bottle after 24 hours. 03/09/25 17:56 Blood Aerobic Blood Culture - Preliminary Streptococcus mitis/oralis grp 03/09/25 17:56 Blood Anaerobic Blood Culture - Preliminary Streptococcus mitis/oralis grp 03/09/25 19:12 Blood Aerobic Blood Culture - Preliminary Streptococcus mitis/oralis 03/09/25 19:12 Blood Anaerobic Blood Culture - Preliminary Streptococcus mitis/oralis [facility] Diagnostic Findings Chest X-Ray 03/09/25 18:54 EXAM: Radiograph of the Chest 1 View INDICATION: Sepsis TECHNIQUE: Frontal view of the chest. COMPARISON: 01/02/2025 FINDINGS: Lungs and pleural spaces: No consolidation or pulmonary edema. No pleural effusion or pneumothorax. Heart: Shape and configuration within normal limits allowing for technique. Mediastinum: Normal contour. Bones/joints: No fracture, erosion or dislocation. Soft tissues: No abnormality noted. No radiopaque foreign body noted. Tubes, lines and devices: Right peripherally inserted central catheter (PICC) tip in the mid superior vena cava. Upper abdomen: No abnormality noted. IMPRESSION: 1. No acute cardiopulmonary disease. 2. Lines and tubes as above. ACT 112: N/A Electronically signed by Robyn Hart 03-09-2025 7:14 PM Medications Administered Home Medications Medication Instructions Recorded Confirmed Last Taken Auto Titrating CPAP #1 ea 12/11/20 03/09/25 Unknown omeprazole 20 mg capsule,delayed 20 mg PO DAILYBB 01/02/25 03/09/25 03/09/25 release posaconazole 100 mg tablet,delayed 300 mg PO QDL 01/02/25 03/09/25 03/09/25 release escitalopram oxalate 20 mg tablet 20 mg PO QAM #30 tabs 02/19/25 03/09/25 03/09/25 (Lexapro) acyclovir 400 mg tablet 400 mg PO AMPM 03/09/25 03/09/25 03/09/25 both doses levofloxacin 500 mg tablet 500 mg PO QPM 03/09/25 03/09/25 03/09/25 ondansetron HCl 8 mg tablet 8 mg PO UD PRN Nausea And Vomiting 03/09/25 03/09/25 Unknown potassium chloride 20 mEq 20 meq PO QAM 03/09/25 03/09/25 03/09/25 tablet,extended release Active Medications Generic Name Dose Route Start Last Admin Trade Name Alejandroq PRN Reason Stop Dose Admin Acyclovir 400 mg 03/10/25 09:00 03/12/25 09:57 Acyclovir 400 Mg Tab PO 04/09/25 08:59 400 mg AMHS JAYLENE Administration Escitalopram Oxalate 20 mg 03/10/25 09:00 03/12/25 09:57 Escitalopram Oxalate 20 Mg Tab PO 04/09/25 08:59 20 mg QAM JAYLENE Administration Prochlorperazine 10 mg/ 10 mls @ 5 mls/min 03/09/25 22:03 03/10/25 14:40 Syringe IV 04/08/25 22:02 5 mls/min Q6H PRN Administration Nausea And Vomiting Acetaminophen 1,000 mg in 100 mls @ 400 mls/hr 03/09/25 22:08 03/10/25 21:50 Ofirmev IV 03/12/25 22:07 Infused Q8H PRN Infusion Pain or Fever Ceftriaxone Sodium 2,000 mg in 50 mls @ 100 mls/hr 03/10/25 13:30 03/12/25 13:29 Rocephin IV 03/24/25 13:29 Infused Q24H JAYLENE Infusion Pantoprazole Sodium 40 mg/ 100 mls @ 20 mls/hr 03/12/25 07:15 03/12/25 17:26 Dextrose IV 04/11/25 07:14 8 mg/hr Q5H JAYLENE 20 mls/hr Administration 8 MG/HR Levofloxacin 500 mg 03/10/25 21:00 03/11/25 20:08 Levofloxacin 500 Mg Tab PO 04/09/25 20:59 500 mg QPM JAYLENE Administration Protocol Lisinopril 10 mg 03/11/25 09:00 03/12/25 09:57 Lisinopril 10 Mg Tab PO 04/10/25 08:59 10 mg QAM JAYLENE Administration Lorazepam 0.5 mg 03/12/25 14:50 03/12/25 16:24 Lorazepam 0.5 Mg Tab PO 04/11/25 14:49 0.5 mg Q6H PRN Administration Anxiety Posaconazole ~ Non- 3 each 03/11/25 11:30 03/12/25 11:44 Formulary Patient's PO 04/10/25 11:29 3 each Own Med QDL JAYLENE Administration Ondansetron HCl 4 mg 03/12/25 06:39 03/12/25 06:50 Ondansetron Inj 2 Mg/Ml 2 Ml Vial IV 04/11/25 06:38 4 mg Q6H PRN Administration Nausea And Vomiting Potassium Chloride 20 meq 03/10/25 09:00 03/12/25 09:56 Potassium Chloride Crtab 20 Meq Tabcr PO 04/09/25 08:59 20 meq QAM JAYLENE Administration Potassium Chloride 40 meq 03/12/25 11:00 03/12/25 09:56 Potassium Chloride Crtab 20 Meq Tabcr PO 03/12/25 21:01 40 meq BID JAYLENE Administration
[2025-03-12] MEDS: LORazepam 0.5 MG TAB PO PRN (16:24)
[2025-03-12 19:59] LABS: Hematocrit (blood only) 21.2 % (37.0-47.0); Hemoglobin 7.7 g/dl (12.0-16.0); Mean Corpuscular Hemoglobin 28.8 pg (25.0-34.0); Mean Corpuscular Volume 79.4 fL (80.0-100.0); Platelet Count 16 K/uL (130-400); RDW Standard Deviation 38.8 fL (36.4-46.3); Red Blood Count 2.67 M/uL (4.20-5.40); White Blood Count 0.10 K/ul (4.8-10.8)
[2025-03-12] MEDS: ACETAMINOPHEN 500 MG TAB PO SCH (21:24)
[2025-03-13 06:42] LABS: Alanine Aminotransferase 12.0 U/L (7-52); Albumin Globulin Ratio 1.1 (0.9-2); Albumin Level 3.0 gm/dl (3.4-5.0); Alkaline Phosphatase 65.0 U/L (34-104); Anion Gap 5.0 (3-11); Bilirubin,Total 0.8 mg/dl (0.2-1.0); Blood Urea Nitrogen 12.0 mg/dl (6-23); Calcium 8.8 mg/dl (8.6-10.3); Carbon Dioxide 28.0 mmol/L (21-32); Chloride 107.0 mmol/L (98-107); Creatinine Clr Calc Pharmacy 117.5 ml/min; Globulin 2.7 gm/dl (2.5-4.0); Glucose 102.0 mg/dl (70-99(Fasting)); Potassium 3.5 mmol/L (3.5-5.1); Sodium 140.0 mmol/L (136-145); Total Protein 5.7 gm/dl (6.0-8.3)
[2025-03-13 06:43] LABS: Hematocrit (blood only) 18.9 % (37.0-47.0); Hemoglobin 6.8 g/dl (12.0-16.0); Mean Corpuscular Hemoglobin 29.1 pg (25.0-34.0); Mean Corpuscular Volume 80.8 fL (80.0-100.0); Platelet Count 11 K/uL (130-400); RDW Standard Deviation 39.8 fL (36.4-46.3); Red Blood Count 2.34 M/uL (4.20-5.40); White Blood Count 0.08 K/ul (4.8-10.8)
--- NOTE | 2025-03-13 08:38 | Hospitalist Progress Note ---
Date of Service March 13, 2025 Assessment & Plan (1) Neutropenic fever: (2) Antineoplastic chemotherapy induced pancytopenia: (3) AML (acute myeloblastic leukemia): (4) Hypomagnesemia: Plan The pt is a 54y/o F w/ a PMHx significant for antineoplastic chemotherapy induced pancytopenia, neutropenic fever, AML, vitamin D deficiency, history of MDS, GERD w/out esophagitis, severe NIKHIL on CPAP, anxiety, and migraine who presents with fever and soreness #Neutropenic fever/Strep mitis and Neissereia bacteremia/antineoplastic chemotherapy induced pancytopenia/AML - Most recent induction + IV and oral chemo on 02/26/2025; Chest x-ray was negative, respiratory bio fire test negative, urinalysis negative in ED. Echo 03/10 revealed WNL LV systolic function w/ no wall motion abnormalities EF of 60-65%. No significant valvular pathology or vegetation. No significant changes from 07/15/22. Pt received 2 bags of pRBCs and 2 bags of Platelets on 03/10 without pre-treatment; pt developed fever of 100.2 during second unit of blood. Pathology states that they believe this to be a febrile nonhemolytic transfusion reaction but cannot r/o the possibility that the fever was d/t neutropenic fever. -Consult Oncology; Hold chemotherapy. Continue to transfuse for Hgb below 7.5; consider outpatient bone-marrow biopsy if cytopenias persist. -Consult ID; recommenced pursue IGNACIO if BCx are persistently positive -1 unit pRBCs irradiated + 1 unit platelets irradiated -Blood Cultures: 03/09 - preliminary strep mitis/oralis grp 03/10 - repeat, NGTD at 48 hours 03/11 - second repeat, NGTD -Continue IV Ceftriaxone - d/t neisseria growth -START IV Vancomycin - management per pharmacy -Continue chronic suppressive therapy: levofloxacin, posaconazole, and acyclovir -Neutropenic precautions -Acetaminophen prn for mild pain/fever -Zofran prn Nausa; Compazine prn nausea (secondary) -CBC following transfusion -CBC w/ diff, CMP in AM #Pos FOBT - Pt noticed darker stools 03/11 + little change to Hgb + Platelets after 4 bags ea. -Consult GI; will follow, pt is currently too high risk for endoscopic evaluation - pt states that GI would want platelets at 50 before reconsideration -Continue IV protonix per GI #Hypomagnesemia - RESOLVED; 1.5 on admission; resolved with tx #HTN - no acute concerns; Continue Lisinopril 10mg #GERD - no acute concerns -HOLD omeprazole -Discontinue PO Pantoprazole -IV Pantoprazole started (as above) #Moderately severe NIKHIL - CPAP at home; did not bring it -CPAP HS #Anxiety - Pt notes extreme anxiety about GI bleed w/ low platelets - requested prn ativan home dose; confirmed w/ PDMP today by me -Continue escitalopram 20 mg daily -Prn Ativan 0.5mg po #Rash on buttock - no signs of infection; suspect related to dry skin #Morbid obesity with BMI 41-BMI 41 with risk factors: Moderately severe obstructive sleep apnea, AML -monitor Weight, I&O Dispo: Continue Med/Tele - awaiting clear BCx and stable HgB VTE proph: deferred d/t severe pancytopenia Admission and Anticipated Discharge Date Admission Date: March 09, 2025 Supervising Physician Co-Signing Physician Notes PA Supervision Note: I did not personally see or examine the patient today, but I verified all black points of REESE Haney's assessment and plan with the following exceptions/additions: None Subjective Pt was sitting in bed today in NAD. Pt states that she is feeling much better today and notes that she has more energy than she did previously. She notes that her appetite has improved greatly and that she would like to get a shower later in the day. Discussed med changes with pt, which she was agreeable to. Pt denies sore thoat, congestion, cough, CP, SOB, palpitations, abd pain/discomfort, N/V. She notes that she continues to have soft dark BMs but denies any gross blood. Telemetry: Sinus 90s overnight; sinus 90s in AM Review of Systems Review of Systems: All systems reviewed & are unremarkable except as noted in Subjective Physical Exam Physical Exam: General: Pt is a 55 y/o morbidly obese F in NAD in bed. VS: reviewed - unremarkable Skin: PICC line removed w/ site bandaged; did not visualize buttocks directly; skin otherwise warm and dry; no lesions or ulcerations Mouth: MMM and pink, no lesions or ulcerations Respiratory: CTA bilat, no adventitious sounds noted. Chest expansion is full and symmetrical Cardio: RRR, mild murmur Abdomen: Round, normoactive BS x4, nontender to palpation MSK: FROM of extremities, no deformities Extremities: no edema Neuro: A&Ox4, cooperative Results & Data Results & Data Vital Signs (Past 12 Hours) Vital Signs Temp Pulse Pulse Resp BP Pulse Ox O2 Del Method 03/13/25 08:07 98.2 F 89 18 105/70 95 Room Air 03/13/25 02:46 98.4 F 85 16 109/72 97 Room Air 03/12/25 23:03 92 H 03/12/25 22:54 Room Air 03/12/25 22:49 98.4 F 93 H 18 114/74 97 Room Air PG Care Time/CCT Total # of Minutes Spent Total Time Spent with Patient: Total time spent is greater than 50% in coordination of care (as documented) at patient's floor/unit and/or counseling patient: Coding Level of Care Code 22368 SUB INP/OBS CARE 2/35MIN Diagnoses Neutropenic fever D70.9; R50.81 Antineoplastic chemotherapy induced pancytopenia D61.810; T45.1X5A AML (acute myeloblastic leukemia) C92.00 Hypomagnesemia E83.42
[2025-03-13] MEDS ORDERED: VANCOMYCIN CONSULT ACTIVE PRN (08:59)
[2025-03-13] MEDS ORDERED: VANCOMYCIN HCL 1,500 MG in SODIUM CHLORIDE 0.9% 500 ML IV SCH (09:00)
[2025-03-13] MEDS ORDERED: VANCOMYCIN HCL 2,250 MG in SODIUM CHLORIDE 0.9% 500 ML IV SCH (09:15)
[2025-03-13] MEDS ORDERED: SODIUM CHLORIDE 0.9% 100 ML IV PRN (10:30)
--- NOTE | 2025-03-13 10:56 | Infectious Disease Progress Nt ---
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 She last received chemotherapy on 02/26/2025. Prior to admission she developed intermittent nausea, body aches and muscle aches. She checked her temperature at home and had a fever of 100.3 prompting evaluation in the ED. She denied any abdominal pain, back pain, diarrhea, constipation, shortness of breath or cough. She has pet dogs at home who are healthy. She denied recent sick contacts or travel. She has some abrasions on her buttocks which are healing. In December 2024, she had fusobacterium and Leptotrichia bacteremia and was evaluated at [facility] and her PICC line was "exchanged" in the same arm. Since then she has had areas of irritation around her PICC line at the tape site but no other problems. She denied any other prosthetics or hardware. Approximately 3 weeks ago she was seen by her dentist for dental x-rays in preparation for stem cell transplant at [facility]. She denied any dental manipulation, cleanings or extractions. She denies any dental or oral pain. In the ED she was febrile with a T of 38.1 and on room air. Labs: WBC 0.09, hemoglobin 8, hematocrit 23.3, platelets 5. ANC<0.50, BUN 12, creatinine 0.65. Urinalysis negative for infection. Respiratory viral panel negative. BC ID grew Streptococcus species which has been identified as Streptococcus oralis/mitis on Bcx. Chest x-ray showed no acute cardiopulmonary disease. Right PICC tip in the mid superior vena cava. She was started on vancomycin and cefepime. She is currently receiving ceftriaxone. Infectious disease consulted for neutropenic fever and GPC bacteremia. TTE completed 03/10 showed no significant valvular pathology. No valvular vegetations. Microbiology: 03/11/25 Blood culture NGTD 03/10/25 blood culture NGTD 03/09/25 blood culture Streptococcus/oralis in 4/4 bottles ( R to Levaquin , Ceft riaxone, Amp, PCN, Cefepime) and Neisseria flav/subflav grp in 1/2 bottles Prior Microbiology: 12/30/24 Blood culture# 1 Fusobacterium nucleatum in 1/2 ( non viable for sensi) 12/30/24 Blood culture # 2 Leptotrichia trevisanii ( Pip tazo, erta, clinda , metronidazole S) in 1/2 bottles Antimicrobials/anti-infectives Cefepime 03/09 Ceftriaxone urrent Vancomycin 03/09 - 03/10 03/13- present Acyclovir prophylaxis Levaquin prophylaxis Posaconazole prophylaxis # Strep mitis/oralis bacteremia # Neisseria Flav/subflav grp bacteremia # Neutropenic fever # AML ( acute myeloblastic leukemia) on chemotherapy via PICC # Pancytopenia, postchemotherapy # PICC line in place since 12/2024 # 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 She is on Levaquin prophylaxis, s It was assumed that strep mitis may be resistant or intermediate sensitivity to Levaquin. She was started on Ceftriaxone. 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 Like strep mitis/oralis , these organisms are part of oral carlos. Noted that this bacteremia developed post chemotherapy in 12/2024. She denied mucositis or dental issues then or now. No oral lesions or irritation on exam. She states her PICC line was exchanged at same site in 12/2024 at time of bacteremia. 3 weeks ago she was evaluated by dental for preop evaluation prior to stem cell transplant. She reports no dental manipulation/cleanings or extractions. She had oral x-rays done only. . She has some abrasions on the buttocks that are in various stages of healing. No deep wounds. No evidence of acute infection at buttocks. This admission recommended removal of PICC line for ? line infection ( removed 03/11). She was evaluated by GI for heme + stool, Thought to be 2/2 possible chemotherapy induced mucositis of the GI tract. On 03/13 Bcx from 03/09 now growing Neisseria Flav. Additionally strep Mitis susceptibility finalized with R to PCN, cefepime, Ceftriaxone, Levaquin. S to only vanco, clind, tet. Although Neisseria flac/sub flav group is usually non pathogenic would treat as she is severely immunocompromised with ANC <0.05 as of 03/13. Of note, this organism is also part of ora pharynx. nasopharynx, commensals of mucous membranes Recommendations; Continue Ceftriaxone 2 g IV for Neissera flav as per aboce Start vancomycin per pharm protocol given resistance pattern of Strep mitis. Follow up 03/10 and 03/11 Bcx, if positive, repeat and check IGNACIO Would not replace until repeat Bcx NG for 72 hours from removal on 03/11 Continue prophylaxis: levaquin, posaconazole, acyclovir Monitor WBC If no endocarditis and repeat BCx NG, plan for 14 days of abx from 03/13 ( post picc removal and start of effective strep mitis therapy) Communicated recs with PA ID will continue to follow. Ron Cervantes MD, MPH Infectious Disease [facility], ID Division Call [phone] with questions Admission and Anticipated Discharge Date Admission Date: March 09, 2025 Subjective This patient recommendation is based on a telemedicine consult request which was completed asynchronously through chart review and information provided by the primary physician. The patient was not seen or examined today. The evaluation is consultative in nature and all patient care and treatment decisions can either be accepted or rejected by the patient's primary hospital-based treating physician using their own independent medical judgment for their patient. Time Spent Reviewing Chart: 21 - 30 minutes Afebrile. Remains neutropenic with ANC, 0.50 Hgb 6.8, plts 11 Strep Mitis is R to ceftriaxone Now growing Non pathogenic Neisseria sp on 03/09 bcx Repeat Bcx NGTD Results & Data Vital Signs (Past 12 Hours) Vital Signs Temp Pulse Pulse Resp BP Pulse Ox O2 Del Method 03/13/25 10:34 80 03/13/25 08:07 36.8 C 89 18 105/70 95 Room Air 03/13/25 02:46 36.9 C 85 16 109/72 97 Room Air 03/12/25 23:03 92 H Laboratory Results Short CBC 03/12/25 03/13/25 Range/Units 19:27 05:24 WBC 0.10 L* 0.08 L* (4.8-10.8) K/ul Hgb 7.7 L 6.8 L* (12.0-16.0) g/dl Hct 21.2 L 18.9 L* (37.0-47.0) % Plt Count 16 L* D 11 L* (130-400) K/uL BMP 03/13/25 05:24 Sodium 140 Potassium 3.5 Chloride 107 Carbon Dioxide 28 BUN 12 Creatinine 0.61 Glucose 102 H Calcium 8.8 Liver Function 03/13/25 Range/Units 05:24 Total Bilirubin 0.8 (0.2-1.0) mg/dl AST 8 L (13-39) U/L ALT 12 (7-52) U/L Alkaline Phosphatase 65 (34-104) U/L Albumin 3.0 L (3.4-5.0) gm/dl Microbiology 03/11/25 07:17 Blood Aerobic Blood Culture - Preliminary No growth in Aerobic bottle after 48 hours. 03/11/25 07:17 Blood Anaerobic Blood Culture - Preliminary No growth in Anaerobic bottle after 48 hours. 03/11/25 07:01 Blood Aerobic Blood Culture - Preliminary No growth in Aerobic bottle after 48 hours. 03/11/25 07:01 Blood Anaerobic Blood Culture - Preliminary No growth in Anaerobic bottle after 48 hours. 03/09/25 19:12 Blood Aerobic Blood Culture - Final Streptococcus mitis/oralis Neisseria flav/subflav [facility] 03/09/25 19:12 Blood Anaerobic Blood Culture - Final Streptococcus mitis/oralis [facility] 03/09/25 17:56 Blood Aerobic Blood Culture - Final Streptococcus mitis/oralis [facility] 03/09/25 17:56 Blood Anaerobic Blood Culture - Final Streptococcus mitis/oralis [facility] 03/10/25 18:13 Blood Aerobic Blood Culture - Preliminary No growth in Aerobic bottle after 48 hours. 03/10/25 18:13 Blood Anaerobic Blood Culture - Preliminary No growth in Anaerobic bottle after 48 hours. 03/10/25 17:12 Blood Aerobic Blood Culture - Preliminary No growth in Aerobic bottle after 48 hours. 03/10/25 17:12 Blood Anaerobic Blood Culture - Preliminary No growth in Anaerobic bottle after 48 hours. Medications Administered Home Medications Medication Instructions Recorded Confirmed Last Taken Auto Titrating CPAP #1 ea 12/11/20 03/09/25 Unknown omeprazole 20 mg capsule,delayed 20 mg PO DAILYBB 01/02/25 03/09/25 03/09/25 release posaconazole 100 mg tablet,delayed 300 mg PO QDL 01/02/25 03/09/25 03/09/25 release escitalopram oxalate 20 mg tablet 20 mg PO QAM #30 tabs 02/19/25 03/09/25 03/09/25 (Lexapro) acyclovir 400 mg tablet 400 mg PO AMPM 03/09/25 03/09/25 03/09/25 both doses levofloxacin 500 mg tablet 500 mg PO QPM 03/09/25 03/09/25 03/09/25 ondansetron HCl 8 mg tablet 8 mg PO UD PRN Nausea And Vomiting 03/09/25 03/09/25 Unknown potassium chloride 20 mEq 20 meq PO QAM 03/09/25 03/09/25 03/09/25 tablet,extended release Active Medications Generic Name Dose Route Start Last Admin Trade Name Freq PRN Reason Stop Dose Admin Acetaminophen 650 mg 03/13/25 10:30 03/13/25 11:05 Acetaminophen 325 Mg Tab PO 03/13/25 18:30 650 mg PRE-TREAT ONE Administration Acyclovir 400 mg 03/10/25 09:00 03/13/25 09:06 Acyclovir 400 Mg Tab PO 04/09/25 08:59 400 mg AMHS JAYLENE Administration Diphenhydramine HCl 25 mg 03/13/25 10:30 03/13/25 11:05 Diphenhydramine 50 Mg/Ml Vial IV 03/13/25 18:30 25 mg PRE-TREAT ONE Administration Escitalopram Oxalate 20 mg 03/10/25 09:00 03/13/25 09:06 Escitalopram Oxalate 20 Mg Tab PO 04/09/25 08:59 20 mg QAM JAYLENE Administration Prochlorperazine 10 mg/ 10 mls @ 5 mls/min 03/09/25 22:03 03/10/25 14:40 Syringe IV 04/08/25 22:02 5 mls/min Q6H PRN Administration Nausea And Vomiting Ceftriaxone Sodium 2,000 mg in 50 mls @ 100 mls/hr 03/10/25 13:30 03/13/25 15:01 Rocephin IV 03/24/25 13:29 Infused Q24H JAYLENE Infusion Pantoprazole Sodium 40 mg/ 100 mls @ 20 mls/hr 03/12/25 07:15 03/13/25 14:12 Dextrose IV 04/11/25 07:14 8 mg/hr Q5H JAYLENE 20 mls/hr Administration 8 MG/HR Levofloxacin 500 mg 03/10/25 21:00 03/12/25 21:42 Levofloxacin 500 Mg Tab PO 04/09/25 20:59 500 mg QPM JAYLENE Administration Protocol Lisinopril 10 mg 03/11/25 09:00 03/13/25 09:07 Lisinopril 10 Mg Tab PO 04/10/25 08:59 10 mg QAM JAYLENE Administration Lorazepam 0.5 mg 03/12/25 14:50 03/12/25 22:47 Lorazepam 0.5 Mg Tab PO 04/11/25 14:49 0.5 mg Q6H PRN Administration Anxiety Posaconazole ~ Non- 3 each 03/11/25 11:30 03/13/25 12:36 Formulary Patient's PO 04/10/25 11:29 3 each Own Med QDL JAYLENE Administration Ondansetron HCl 4 mg 03/12/25 06:39 03/12/25 06:50 Ondansetron Inj 2 Mg/Ml 2 Ml Vial IV 04/11/25 06:38 4 mg Q6H PRN Administration Nausea And Vomiting Potassium Chloride 20 meq 03/10/25 09:00 03/13/25 09:07 Potassium Chloride Crtab 20 Meq Tabcr PO 04/09/25 08:59 20 meq QAM JAYLENE Administration
[2025-03-13] MEDS: VANCOMYCIN HCL 2,250 MG in SODIUM CHLORIDE 0.9% 500 ML IV STA (11:04)
[2025-03-13] MEDS: ACETAMINOPHEN 325 MG TAB PO ONE (11:05)
[2025-03-13] MEDS: diphenhydrAMINE 50 MG/ML VIAL IV ONE (11:05)
--- NOTE | 2025-03-13 13:09 | Pharmacy Report ---
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 She is pancytopenic and also on chronic suppressive therapy with acyclovir, posaconazole (non-formulary), and Levaquin. Pertinent microbiologic data includes: blood cultures x 2 (03/09) growing Streptococcus mitis/oralis group and 1 of 2 growing Neisseria flavescens /subflava group. Repeat blood cultures (03/10, 03/11 show no growth). Patient was previously receiving ceftriaxone monotherapy. Vancomycin added today due to resistance to ceftriaxone shown on Streptococcus mitis in blood culture. TTE unremarkable. Infectious diseases consulted. Day # 1 of vancomycin therapy. Plan Vancomycin * Loading dose: 2250 mg IV x 1 * Maintenance dose: 1500 mg IV every 12 hours * Regimen is predicted to achieve target AUC/BUCK of 400-600 mg/L.hr * Random level ordered for: 03/14/25 Pharmacy will continue to follow and will adjust dose/frequency as necessary. Thank you. Pharmacy has transitioned to AUC monitoring for vancomycin. AUC/BUCK is the preferred PK/PD target and is associated with decreased risk of nephrotoxicity compared to traditional trough targets.
--- NOTE | 2025-03-13 16:48 | Hematology/Oncology Prog Note ---
Date of Service March 13, 2025 Assessment & Plan (1) Thrombocytopenia: (2) Neutropenic fever: (3) Antineoplastic chemotherapy induced pancytopenia: Plan -Suspect hematochezia secondary to thrombocytopenia, recommend transfusing for platelet counts below 20,000.Also transfused with PRBC for hemoglobin below 7.5. If hematochezia persists, would benefit from GI evaluation.Recommend checking coagulation panel including PT/INR/PTT and fibrinogen level. -She can be discharged home when clinically stable to continue outpatient PRBC/platelet transfusion per protocol. Admission and Anticipated Discharge Date Admission Date: March 09, 2025 Subjective Doing better. Blood cultures now negative. Endorses hematochezia. Results & Data Vital Signs (Past 12 Hours) Vital Signs Temp Pulse Pulse Resp BP BP Pulse Ox 03/13/25 16:07 36.8 C 83 18 133/84 99 03/13/25 15:40 36.8 C 88 141/79 H 99 03/13/25 15:35 88 03/13/25 15:07 36.6 C 83 18 130/77 97 03/13/25 14:37 36.7 C 88 144/83 H 03/13/25 14:22 36.6 C 84 98 H 147/79 H 03/13/25 13:59 36.7 C 84 140/82 97 03/13/25 13:37 36.7 C 84 128/77 03/13/25 13:35 36.7 C 84 18 128/77 03/13/25 13:12 36.8 C 91 H 138/74 03/13/25 12:46 36.8 C 85 18 116/73 96 03/13/25 12:31 36.7 C 86 128/73 03/13/25 12:04 36.6 C 84 18 112/65 96 03/13/25 11:59 37.3 C 81 18 114/72 96 03/13/25 10:34 80 03/13/25 08:45 03/13/25 08:07 36.8 C 89 18 105/70 95 O2 Del Method 03/13/25 16:07 03/13/25 15:40 03/13/25 15:35 03/13/25 15:07 03/13/25 14:37 03/13/25 14:22 03/13/25 13:59 03/13/25 13:37 03/13/25 13:35 03/13/25 13:12 03/13/25 12:46 03/13/25 12:31 03/13/25 12:04 03/13/25 11:59 Room Air 03/13/25 10:34 03/13/25 08:45 Room Air 03/13/25 08:07 Room Air
[2025-03-13] MEDS: VANCOMYCIN HCL 1,500 MG in SODIUM CHLORIDE 0.9% 500 ML IV SCH (20:34)
[2025-03-13 21:02] LABS: Hematocrit (blood only) 20.8 % (37.0-47.0); Hemoglobin 7.5 g/dl (12.0-16.0); Mean Corpuscular Hemoglobin 29.2 pg (25.0-34.0); Mean Corpuscular Volume 80.9 fL (80.0-100.0); Platelet Count 13 K/uL (130-400); RDW Standard Deviation 40.6 fL (36.4-46.3); Red Blood Count 2.57 M/uL (4.20-5.40); White Blood Count 0.08 K/ul (4.8-10.8)
[2025-03-14 06:57] LABS: Platelet Count 10 K/uL (130-400); White Blood Count 0.07 K/ul (4.8-10.8)
[2025-03-14 06:58] LABS: Hematocrit (blood only) 18.6 % (37.0-47.0); Hemoglobin 6.9 g/dl (12.0-16.0); Mean Corpuscular Hemoglobin 29.7 pg (25.0-34.0); Mean Corpuscular Volume 80.2 fL (80.0-100.0); RDW Standard Deviation 39.2 fL (36.4-46.3); Red Blood Count 2.32 M/uL (4.20-5.40)
[2025-03-14 07:02] LABS: Fibrinogen 478 mg/dl (184-400)
[2025-03-14 07:19] LABS: INR 1.1 (0.9-1.1); Partial Thromboplastin Time 32 Seconds (21-31); Prothrombin Time 11.4 Seconds (9.0-12.0)
[2025-03-14 07:23] LABS: Alanine Aminotransferase 10.0 U/L (7-52); Albumin Globulin Ratio 1.2 (0.9-2); Albumin Level 3.0 gm/dl (3.4-5.0); Alkaline Phosphatase 67.0 U/L (34-104); Anion Gap 8.0 (3-11); Bilirubin,Total 0.8 mg/dl (0.2-1.0); Blood Urea Nitrogen 7.0 mg/dl (6-23); Calcium 8.7 mg/dl (8.6-10.3); Carbon Dioxide 26.0 mmol/L (21-32); Chloride 106.0 mmol/L (98-107); Creatinine Clr Calc Pharmacy 146.3 ml/min; Globulin 2.6 gm/dl (2.5-4.0); Glucose 109.0 mg/dl (70-99(Fasting)); Potassium 2.9 mmol/L (3.5-5.1); Sodium 140.0 mmol/L (136-145); Total Protein 5.6 gm/dl (6.0-8.3)
[2025-03-14 07:47] LABS: RBC Morphology Unremarkable
[2025-03-14] MEDS ORDERED: SODIUM CHLORIDE 0.9% 100 ML IV PRN ×2 (08:02→20:14)
--- NOTE | 2025-03-14 08:35 | Infectious Disease Progress Nt ---
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 She last received chemotherapy on 02/26/2025. Prior to admission she developed intermittent nausea, body aches and muscle aches. She checked her temperature at home and had a fever of 100.3 prompting evaluation in the ED. She denied any abdominal pain, back pain, diarrhea, constipation, shortness of breath or cough. She has pet dogs at home who are healthy. She denied recent sick contacts or travel. She has some abrasions on her buttocks which are healing. In December 2024, she had fusobacterium and Leptotrichia bacteremia and was evaluated at [facility] and her PICC line was "exchanged" in the same arm. Since then she has had areas of irritation around her PICC line at the tape site but no other problems. She denied any other prosthetics or hardware. Approximately 3 weeks ago she was seen by her dentist for dental x-rays in preparation for stem cell transplant at [facility]. She denied any dental manipulation, cleanings or extractions. She denies any dental or oral pain. In the ED she was febrile with a T of 38.1 and on room air. Labs: WBC 0.09, hemoglobin 8, hematocrit 23.3, platelets 5. ANC<0.50, BUN 12, creatinine 0.65. Urinalysis negative for infection. Respiratory viral panel negative. BC ID grew Streptococcus species which has been identified as Streptococcus oralis/mitis on Bcx. Chest x-ray showed no acute cardiopulmonary disease. Right PICC tip in the mid superior vena cava. She was started on vancomycin and cefepime and then switched to Ceftriaxone. Infectious disease consulted for neutropenic fever and GPC bacteremia. TTE completed 03/10 showed no significant valvular pathology. No valvular vegetations. Microbiology: 03/11/25 Blood culture NGTD (picc and perif ) 03/10/25 blood culture NGTD ( picc and perif ) 03/09/25 blood culture Streptococcus/oralis in 4/4 bottles ( R to Levaquin , Ceftriaxone, Amp, PCN, Cefepime) and Neisseria flav/subflav grp in 1/4 bottles ( unclear if from picc or perip) Prior Microbiology: 12/30/24 Blood culture# 1 Fusobacterium nucleatum in 1/2 ( non viable for sensi) 12/30/24 Blood culture # 2 Leptotrichia trevisanii ( Pip tazo, erta, clinda , metronidazole S) in 1/2 bottles Antimicrobials/anti-infectives Cefepime 03/09 Ceftriaxone 03/10- present Vancomycin 03/09 - 03/10 03/13- present Acyclovir prophylaxis Levaquin prophylaxis Posaconazole prophylaxis # Strep mitis/oralis bacteremia # Neisseria Flav/subflav grp bacteremia # Neutropenic fever # AML ( acute myeloblastic leukemia) on chemotherapy via PICC # Pancytopenia, postchemotherapy # PICC line in place since 12/2024, removed this admission # 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 She is 3 weeks post chemotherapy and found to have streptococcus mitis/oralis bacteremia. She is on Levaquin prophylaxis. It was assumed that strep mitis may be resistant or have intermediate sensitivity to Levaquin as strep developed on therapy. She was empirically started on Ceftriaxone. 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 Like strep mitis/oralis , these organisms are part of oral carlos. She denied mucositis or dental issues then or now. No oral lesions or irritation or dental issues on exam. She states her PICC line was exchanged at same site in 12/2024 at time of bacteremia. 3 weeks ago she was evaluated by dental for preop evaluation prior to stem cell transplant. She reports no dental manipulation/cleanings or extractions. She had oral x-rays done only. She has some abrasions on the buttocks that are in various stages of healing. No deep wounds. No evidence of acute infection at buttocks. TTE without valve vegetations. No other prosthetics. I recommended removal of PICC line for ? line infection ( removed 03/11). She was evaluated by GI for heme + stool, Thought to be 2/2 possible chemotherapy induced mucositis of the GI tract. On 03/13 Bcx from 03/09 also grew Neisseria Flav/ Flav . Additionally strep Mitis susceptibility finalized with Resistance to Amp, PCN, cefepime, Ceftriaxone, Levaquin. S to only vanco, clind, tetra. Although Neisseria flav/sub flav group is usually non pathogenic, would treat as she is severely immunocompromised with ANC <0.05 as of 03/14. Of note, this organism is also part of oral pharynx. nasopharynx, commensals of mucous membranes. She denies any Headache or respiratory symptoms. Recommendations; Continue Ceftriaxone 2 g IV for Neisseria flav Continue vancomycin per pharm protocol given resistance pattern of Strep mitis. Can't assume Dapto sensitivity so will continue IV vancom Follow up 03/10 and 03/11 Bcx, if positive, repeat and check IGNACIO Can replace Picc line if Bcx NG for 72 hours from removal on 03/11 Continue prophylaxis: levaquin, posaconazole, acyclovir Monitor CBC Since no evidence of endocarditis and repeat BCx NG, plan for 14 days of abx from 03/13 ( post picc removal and start of effective strep mitis therapy). Communicated recs with PA See OPAT recommendations as ID will follow up labs on vancomycin. No ID clinic needed. Outpatient Discharge summary, Discharging Physician please order the following on discharge: Diagnosis: Strep Mitis Bacteremia, Nonpathogenic Neisseria Flav bacteremia , Neutropenic fever, post chemo Organism: Strep mitis/oralis and Neisseria Flav/subflav grp Antibiotic: (dose and frequency) Vancomycin 1750 mg IV q 12h and Ceftriaxone 2 g IV daily Start of therapy: 03/13/2025 End of therapy: 03/27/2025 Picc/ Midline: Care per protocol, remove at end of therapy Repeat imaging recommendations (type of image, contrast, time frame): NONE Oral suppression after cessation of IV antibiotics (drug, dose, duration): No Labs should be faxed to ID office attention [facility] [phone] Labs needed and frequency weekly Cbc with diff, BMP, LFT, VANCO trough ( GOAL LEVEL 15-17 ) Please follow up with [facility] outpatient clinic Clinic Address [address] [place] [address] Office P) [phone] Appointment-time frame NO follow up indicated, unless pt notified by ID ID will sign off . Please call if any vancomycin dose adjustment needed prior to discharge based on pharmacy recommendations Ron Cervantes MD, MPH Infectious Disease [facility] Call [phone] with questions Admission and Anticipated Discharge Date Admission Date: March 09, 2025 Subjective Subsequent visit was provided via telemedicine using two-way real-time interactive telecommunication between the patient and the telemedicine provider. For the duration of the visit, the provider was performing the assessment from a different facility than the patient. This includesuse of bluetooth stethoscope forauscultationperformed by the telepresenter that the telemedicine provider can hear if described in the physical exam. Human Capital Manager contact information: Please call [facility] Call Center . (Phone Number For Physician Use Only) After establishing a telemedicine visit, patient was: Patient was verified with two unique identifiers and Gave permission to continue telehealth session Time Spent with Patient: Subsequent => 35 min Afebrile. Remains neutropenic with ANC < 0.50 Hgb 6.9, plts 110 Repeat Bcx NGTD. She feels well overall/ Physical Exam Physical Exam: General NAD, pleasant Neck- supple Lungs- Non laboreed breathing, On RA HEENT- No oral ulcers or lesions. No gum or dental abnormalities. Fair dentition. Abdomen- soft, NT, ND Neuro- AAO times 3 Psych- Normal mood, cooperative Results & Data Vital Signs (Past 12 Hours) Vital Signs Temp Pulse Pulse Resp BP BP Pulse Ox 03/14/25 07:24 36.9 C 82 18 157/80 H 96 03/14/25 07:13 84 03/14/25 03:42 36.9 C 94 H 16 125/74 97 03/14/25 00:07 36.8 C 86 18 116/69 97 03/13/25 22:03 85 03/13/25 21:39 O2 Del Method 03/14/25 07:24 Room Air 03/14/25 07:13 03/14/25 03:42 Room Air 03/14/25 00:07 Room Air 03/13/25 22:03 03/13/25 21:39 Room Air Laboratory Results Short CBC 03/13/25 03/14/25 Range/Units 20:09 05:46 WBC 0.08 L* 0.07 L* (4.8-10.8) K/ul Hgb 7.5 L 6.9 L* (12.0-16.0) g/dl Hct 20.8 L* 18.6 L* (37.0-47.0) % Plt Count 13 L* 10 L* (130-400) K/uL BMP 03/14/25 05:46 Sodium 140 Potassium 2.9 L Chloride 106 Carbon Dioxide 26 BUN 7 Creatinine 0.49 L Glucose 109 H Calcium 8.7 Liver Function 03/14/25 Range/Units 05:46 Total Bilirubin 0.8 (0.2-1.0) mg/dl AST 7 L (13-39) U/L ALT 10 (7-52) U/L Alkaline Phosphatase 67 (34-104) U/L Albumin 3.0 L (3.4-5.0) gm/dl Medications Administered Home Medications Medication Instructions Recorded Confirmed Last Taken Auto Titrating CPAP #1 ea 12/11/20 03/09/25 Unknown omeprazole 20 mg capsule,delayed 20 mg PO DAILYBB 01/02/25 03/09/25 03/09/25 release posaconazole 100 mg tablet,delayed 300 mg PO QDL 01/02/25 03/09/25 03/09/25 release escitalopram oxalate 20 mg tablet 20 mg PO QAM #30 tabs 02/19/25 03/09/25 03/09/25 (Lexapro) acyclovir 400 mg tablet 400 mg PO AMPM 03/09/25 03/09/25 03/09/25 both doses levofloxacin 500 mg tablet 500 mg PO QPM 03/09/25 03/09/25 03/09/25 ondansetron HCl 8 mg tablet 8 mg PO UD PRN Nausea And Vomiting 03/09/25 03/09/25 Unknown potassium chloride 20 mEq 20 meq PO QAM 03/09/25 03/09/25 03/09/25 tablet,extended release Active Medications Generic Name Dose Route Start Last Admin Trade Name Freq PRN Reason Stop Dose Admin Acetaminophen 650 mg 03/14/25 09:00 03/14/25 10:21 Acetaminophen 325 Mg Tab PO 03/14/25 16:00 650 mg PRE-TREAT JAYLENE Administration Acyclovir 400 mg 03/10/25 09:00 03/14/25 10:22 Acyclovir 400 Mg Tab PO 04/09/25 08:59 400 mg AMHS JAYLENE Administration Diphenhydramine HCl 25 mg 03/14/25 09:00 03/14/25 10:22 Diphenhydramine 50 Mg/Ml Vial IV 03/14/25 16:00 25 mg PRE-TREAT JAYLENE Administration Escitalopram Oxalate 20 mg 03/10/25 09:00 03/14/25 10:23 Escitalopram Oxalate 20 Mg Tab PO 04/09/25 08:59 20 mg QAM JAYLENE Administration Prochlorperazine 10 mg/ 10 mls @ 5 mls/min 03/09/25 22:03 03/10/25 14:40 Syringe IV 04/08/25 22:02 5 mls/min Q6H PRN Administration Nausea And Vomiting Ceftriaxone Sodium 2,000 mg in 50 mls @ 100 mls/hr 03/10/25 13:30 03/13/25 15:01 Rocephin IV 03/24/25 13:29 Infused Q24H JAYLENE Infusion Pantoprazole Sodium 40 mg/ 100 mls @ 20 mls/hr 03/12/25 07:15 03/14/25 11:28 Dextrose IV 04/11/25 07:14 8 mg/hr Q5H JAYLENE 20 mls/hr Administration 8 MG/HR Vancomycin HCl 1,500 mg/ 530 mls @ 200 mls/hr 03/13/25 21:00 03/14/25 10:37 Sodium Chloride IV 03/14/25 13:00 200 mls/hr Q12H JAYLENE Administration Levofloxacin 500 mg 03/10/25 21:00 03/13/25 20:34 Levofloxacin 500 Mg Tab PO 04/09/25 20:59 500 mg QPM JAYLENE Administration Protocol Lisinopril 10 mg 03/11/25 09:00 03/14/25 10:22 Lisinopril 10 Mg Tab PO 04/10/25 08:59 10 mg QAM JAYLENE Administration Lorazepam 0.5 mg 03/12/25 14:50 03/12/25 22:47 Lorazepam 0.5 Mg Tab PO 04/11/25 14:49 0.5 mg Q6H PRN Administration Anxiety Posaconazole ~ Non- 3 each 03/11/25 11:30 03/13/25 12:36 Formulary Patient's PO 04/10/25 11:29 3 each Own Med QDL JAYLENE Administration Ondansetron HCl 4 mg 03/12/25 06:39 03/12/25 06:50 Ondansetron Inj 2 Mg/Ml 2 Ml Vial IV 04/11/25 06:38 4 mg Q6H PRN Administration Nausea And Vomiting Potassium Chloride 20 meq 03/10/25 09:00 03/14/25 10:23 Potassium Chloride Crtab 20 Meq Tabcr PO 04/09/25 08:59 20 meq QAM JAYLENE Administration
--- NOTE | 2025-03-14 09:27 | Hospitalist Progress Note ---
Date of Service March 14, 2025 Assessment & Plan (1) Neutropenic fever: (2) Antineoplastic chemotherapy induced pancytopenia: (3) AML (acute myeloblastic leukemia): (4) Hypomagnesemia: Plan The pt is a 54y/o F w/ a PMHx significant for antineoplastic chemotherapy induced pancytopenia, neutropenic fever, AML, vitamin D deficiency, history of MDS, GERD w/out esophagitis, severe NIKHIL on CPAP, anxiety, and migraine who presents with fever and soreness #Neutropenic fever/Strep mitis and Neissereia bacteremia/antineoplastic chemotherapy induced pancytopenia/AML - Most recent chemo 02/26; CXR neg, Resp Biofire + UA neg in ED; Echo 03/10 w/ no significant valvular pathology/vegetation. Received 2 units pRBCs + 2 units Platelets 03/10 w/out pre- treatment - developed 100.2 fever during 2nd unit of blood. Pathology believed it was a febrile nonhemolytic transfusion reaction. -Consult Oncology; Hold chemotherapy. Continue to transfuse for Hgb below 7.5 and platelets below 20,000; consider outpatient bone-marrow biopsy if cytopenias persist. -ID following, continue IV Ceftriaxone and IV Vanco -Blood Cultures: 03/09 - final strep 03/10 - repeat, NGTD 03/11 - second repeat, NGTD -PICC line w/ consent -Continue chronic suppressive therapy: levofloxacin, posaconazole, and acyclovir -1 unit pRBCs irradiated + 1 unit platelets irradiated - pretx w/ tylenol + benadryl; Total Transfused 7 units each -Neutropenic precautions -Acetaminophen prn for pain/fever -Zofran prn Nausa; Compazine prn nausea (secondary) -CBC following transfusion -CBC w/ diff, CMP in AM Current d/c plan: Continuation of current IV abx x2wks following PICC removal if BCx remain neg. #Pos FOBT - Pt no longer seeing dark stools; initially noticed darker stools 03/11 in addition to inadequate Hgb & platelet change despite transfusions -Consulted GI; will follow, pt is currently too high risk for endoscopic evaluation - pt states that GI would want platelets at 50 before reconsideration -Continue IV protonix per GI #Hypomagnesemia - RESOLVED; 1.5 on admission; resolved with tx #HTN - no acute concerns; Continue Lisinopril 10mg #GERD - no acute concerns -HOLD omeprazole -Discontinue PO Pantoprazole -IV Pantoprazole started (as above) #Moderately severe NIKHIL - CPAP at home; did not bring it -CPAP HS #Anxiety - Pt notes extreme anxiety about GI bleed w/ low platelets - requested prn ativan home dose; confirmed w/ PDMP today by me -Continue escitalopram 20 mg daily -Prn Ativan 0.5mg po #Rash on buttock - no signs of infection; suspect related to dry skin #Morbid Obesity w/ BMI 41 - BMI 41 w/ risk factors: Moderately severe NIKHIL, AML -Monitor Weight, I&O Dispo: Continue Med/Tele - awaiting clear BCx and stable HgB VTE proph: deferred d/t severe pancytopenia Admission and Anticipated Discharge Date Admission Date: March 09, 2025 Supervising Physician Co-Signing Physician Notes PA Supervision Note: I did not personally see or examine the patient today, but I verified all black points of REESE Haney's assessment and plan with the following exceptions/additions: change PPI gtt to PPI 40mg po bid Replace potassium further-give 40 meq po x 1 this evening Transfuse further platelets this evening Subjective Pt was sitting in bed today in [facility]. She states that she is feeling well this morning and is interested in the possibility of going home. Pt notes that she talked with ID this morning and was told that she would be sent home with IV vancomycin and IV ceftriaxone. Pt was agreeable to PICC placement. Pt additionally notes that her stools were no longer dark this AM and that her BMs have decreased in frequency. Pt denies cough, congestion, sore-throat, CP, SOB, Palpitations, abd pain/discomfort, N/V/D, and weakness. Telemetry: Sinus 80s-90s overnight and this AM Review of Systems Review of Systems: All systems reviewed & are unremarkable except as noted in Subjective Physical Exam Physical Exam: General: Pt is a 55 y/o morbidly obese F in NAD in bed. VS: reviewed - remarkable Skin: PICC line removed w/ site bandaged; lesion on buttock resolved; skin otherwise warm and dry; no lesions or ulcerations Respiratory: CTA bilat, no adventitious sounds noted. Chest expansion is full and symmetrical Cardio: RRR, mild murmur Abdomen: Round, normoactive BS x4, nontender to palpation MSK: FROM of extremities, no deformities Extremities: no edema Neuro: A&Ox4, cooperative Results & Data Results & Data Vital Signs (Past 12 Hours) Vital Signs Temp Pulse Pulse Resp BP BP Pulse Ox 03/14/25 07:24 98.4 F 82 18 157/80 H 96 03/14/25 07:13 84 03/14/25 03:42 98.4 F 94 H 16 125/74 97 03/14/25 00:07 98.2 F 86 18 116/69 97 03/13/25 22:03 85 03/13/25 21:39 O2 Del Method 03/14/25 07:24 Room Air 03/14/25 07:13 03/14/25 03:42 Room Air 03/14/25 00:07 Room Air 03/13/25 22:03 03/13/25 21:39 Room Air Laboratory Results Reviewed: CBC, RBC Morphology, Coags, CMP, BCx, Random Vanc PG Care Time/CCT Total # of Minutes Spent Total Time Spent with Patient: Total time spent is greater than 50% in coordination of care (as documented) at patient's floor/unit and/or counseling patient: Coding Level of Care Code 24127 SUB INP/OBS CARE 3/50MIN Diagnoses Neutropenic fever D70.9; R50.81 Antineoplastic chemotherapy induced pancytopenia D61.810; T45.1X5A AML (acute myeloblastic leukemia) C92.00 Hypomagnesemia E83.42
--- NOTE | 2025-03-14 10:14 | Pharmacy Report ---
Pharmacy PK ABX Note - Date of Service March 14, 2025 - Assessment and Plan Assessment 03/14: * Random vancomycin level this AM was ~10 mcg/ml - current regimen associated with AUC/BUCK ~440, will increase dosing to target upper end of goal range for AUC/BUCK d/t bacteremia. Will increase to 1750 mg iv q 12 hours. Awaiting further sensitivities. 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 She is pancytopenic and also on chronic suppressive therapy with acyclovir, posaconazole (non-formulary), and Levaquin. * Pertinent microbiologic data includes: blood cultures x 2 (03/09) growing Streptococcus mitis/oralis group and 1 of 2 growing Neisseria flavescens /subflava group. Repeat blood cultures (03/10, 03/11 show no growth). * Patient was previously receiving ceftriaxone monotherapy. Vancomycin added today due to resistance to ceftriaxone shown on Streptococcus mitis in blood culture. TTE unremarkable. Plan Vancomycin * Increase to 1750 mg iv q 12 hours * Will plan to recheck level in next 2-3 days Pharmacy will continue to follow and will adjust dose/frequency as necessary. Thank you. Pharmacy has transitioned to AUC monitoring for vancomycin. AUC/BUCK is the preferred PK/PD target and is associated with decreased risk of nephrotoxicity compared to traditional trough targets.
[2025-03-14] MEDS: VANCOMYCIN LEVEL ONE (10:20)
[2025-03-14] MEDS: ACETAMINOPHEN 325 MG TAB PO SCH (10:21)
[2025-03-14] MEDS: diphenhydrAMINE 50 MG/ML VIAL IV SCH (10:22)
[2025-03-14 19:07] LABS: Hematocrit (blood only) 22.9 % (37.0-47.0); Hemoglobin 8.2 g/dl (12.0-16.0); Mean Corpuscular Hemoglobin 28.6 pg (25.0-34.0); Mean Corpuscular Volume 79.8 fL (80.0-100.0); Platelet Count 14 K/uL (130-400); RDW Standard Deviation 41.7 fL (36.4-46.3); Red Blood Count 2.87 M/uL (4.20-5.40); White Blood Count 0.10 K/ul (4.8-10.8)
[2025-03-14 19:26] LABS: Anisocytosis Present
[2025-03-14] MEDS: VANCOMYCIN HCL 1,750 MG in SODIUM CHLORIDE 0.9% 500 ML IV SCH (20:10)
[2025-03-14] MEDS: POTASSIUM CHLORIDE CRTAB 20 MEQ TABCR PO STA (21:12)
[2025-03-14] MEDS ORDERED: ACETAMINOPHEN 650 MG SUPP PR PRN (21:43)
[2025-03-14] MEDS: diphenhydrAMINE 50 MG/ML VIAL IV STA (21:58)
[2025-03-14] MEDS: ACETAMINOPHEN 325 MG TAB PO PRN (21:59)
[2025-03-15 07:54] LABS: Hematocrit (blood only) 20.9 % (37.0-47.0); Hemoglobin 7.4 g/dl (12.0-16.0); Mean Corpuscular Hemoglobin 28.4 pg (25.0-34.0); Mean Corpuscular Volume 80.1 fL (80.0-100.0); Platelet Count 13 K/uL (130-400); RDW Standard Deviation 44.2 fL (36.4-46.3); Red Blood Count 2.61 M/uL (4.20-5.40); White Blood Count 0.07 K/ul (4.8-10.8)
[2025-03-15 08:04] LABS: Alanine Aminotransferase 8.0 U/L (7-52); Albumin Globulin Ratio 1.1 (0.9-2); Albumin Level 3.1 gm/dl (3.4-5.0); Alkaline Phosphatase 70.0 U/L (34-104); Anion Gap 6.0 (3-11); Bilirubin,Total 0.8 mg/dl (0.2-1.0); Blood Urea Nitrogen 5.0 mg/dl (6-23); Calcium 8.8 mg/dl (8.6-10.3); Carbon Dioxide 29.0 mmol/L (21-32); Chloride 106.0 mmol/L (98-107); Creatinine Clr Calc Pharmacy 137.4 ml/min; Globulin 2.7 gm/dl (2.5-4.0); Glucose 104.0 mg/dl (70-99(Fasting)); Magnesium 1.5 mg/dl (1.7-2.4); Potassium 3.0 mmol/L (3.5-5.1); Sodium 141.0 mmol/L (136-145); Total Protein 5.8 gm/dl (6.0-8.3)
[2025-03-15] MEDS ORDERED: SODIUM CHLORIDE 0.9% 100 ML IV PRN (08:07)
[2025-03-15] MEDS: MAGNESIUM SULFATE / D5W 1 GM/100 ML BAG IV SCH (09:46)
--- NOTE | 2025-03-15 09:46 | Pharmacy Report ---
Pharmacy PK ABX Note - Date of Service March 15, 2025 - Assessment and Plan Assessment 03/15: * Random vancomycin level this AM was 10.6 mcg/ml, prior to 2nd dose of new regimen-- associated with AUC/BUCK 548 mg/L.hr at steady state. Will continue with current dose. Strep mitis sensitive to vancomycin. Current plan for ceftriaxone/vancomycin through 03/27/25. 03/14: * Random vancomycin level this AM was ~10 mcg/ml - current regimen associated with AUC/BUCK ~440, will increase dosing to target upper end of goal range for AUC/BUCK d/t bacteremia. Will increase to 1750 mg iv q 12 hours. Awaiting further sensitivities. 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 She is pancytopenic and also on chronic suppressive therapy with acyclovir, posaconazole (non-formulary), and Levaquin. * Pertinent microbiologic data includes: blood cultures x 2 (03/09) growing Streptococcus mitis/oralis group and 1 of 2 growing Neisseria flavescens /subflava group. Repeat blood cultures (03/10, 03/11 show no growth). * Patient was previously receiving ceftriaxone monotherapy. Vancomycin added today due to resistance to ceftriaxone shown on Streptococcus mitis in blood culture. TTE unremarkable. Plan Vancomycin * Continue 1750 mg iv q 12 hours * Will order level for 11/10 AM if patient still admitted. Pharmacy will continue to follow and will adjust dose/frequency as necessary. Thank you. Pharmacy has transitioned to AUC monitoring for vancomycin. AUC/BUCK is the preferred PK/PD target and is associated with decreased risk of nephrotoxicity compared to traditional trough targets.
[2025-03-15] MEDS: diphenhydrAMINE 50 MG/ML VIAL IV PRN (10:02)
[2025-03-15] MEDS: VANCOMYCIN LEVEL ONE (10:16)
[2025-03-15] MEDS: POTASSIUM CHLORIDE CRTAB 20 MEQ TABCR PO STA (10:19)
--- NOTE | 2025-03-15 13:32 | Hospitalist Progress Note ---
Date of Service March 15, 2025 Assessment & Plan (1) Antineoplastic chemotherapy induced pancytopenia: (2) AML (acute myeloblastic leukemia): (3) Bacteremia due to Streptococcus: (4) Hypokalemia: Plan This patient is a 55-year-old female w/ a PMHx significant for antineoplastic c hemotherapy induced pancytopenia, AML on chemotherapy with PICC line in place, vitamin D deficiency, GERD w/out esophagitis, severe NIKHIL on CPAP, anxiety, and migraine who presents with fever, neutropenia, and myalgias. She is admitted with Streptococcus mitis and Neisseria flava bacteremia and antineoplastic induced pancytopenia. #Neutropenic fever/Strep mitis and Neisseria flava bacteremia - Most recent chemo 02/26; CXR neg, Resp Biofire negative, UA neg, with severe neutropenia and PICC line in place. Blood cultures from 03/09 growing Streptococcus mitis resistant to penicillin and ceftriaxone, as well as Neisseria flava. TTE negative for valvular vegetation. Repeat blood cultures on 03/10 and 03/11 both no growth to date. She is now afebrile and clinically improved. PICC line removed on 03/11. Appreciate infectious disease consultation. - Continue IV Ceftriaxone for Neisseria and IV Vanco for Streptococcus mitis- plan for 2 weeks of treatment with end date 03/27/2025 - Check once weekly CBC with differential, CMP, vancomycin trough with goal level 15-17 while on antibiotics-Ensure labs are faxed to the ID office - New PICC line placed on 03/14 - Neutropenic precautions - Acetaminophen prn for pain/fever -At this time, no follow-up with infectious disease is recommended, but the labs will be reviewed by infectious disease ongoing after discharge. ID recommends calling them if any vancomycin dose adjustment is needed prior to discharge based on pharmacy recommendations #Antineoplastic induced pancytopenia/AML-Consult Oncology appreciated-plan is to hold chemotherapy and repeat bone marrow biopsy if cytopenias persist. She has plans for stem cell transplant in April 2025 at [facility]. Continues to require daily transfusions of PRBCs and platelets during this admission. She had mucositis with melena during this admission which is now resolved - Continue to transfuse for Hgb below 7.5 and platelets below 20,000 - Follow CBC daily - Continue chronic suppressive therapy: levofloxacin, posaconazole, and acyclovir - Continue Compazine as needed for nausea - Patient requires IV Benadryl and Tylenol prior to transfusions - Follow-up with oncology as an outpatient-she has lab appointments on Monday and can get same-day transfusions in the cancer center #GI bleed/GERD-patient had dark stools starting on 03/11-seen by GI and thought to be mucositis in the setting of thrombocytopenia. Started on IV Protonix drip and now transition to oral Protonix. Dark stools have resolved. No endoscopy recommended per GI due to severe thrombocytopenia. -Continue Protonix 40 mg p.o. twice daily #Hypomagnesemia/hypokalemia-magnesium and potassium remain low - Replace with IV magnesium and oral potassium 100 mEq p.o. today divided twice daily - Follow BMP and magnesium in the a.m. #HTN - no acute concerns, BPs are controlled -Continue Lisinopril 10mg daily #Moderately severe NIKHIL -no acute issues -Continue CPAP HS #Anxiety - Pt notes extreme anxiety about GI bleed w/ low platelets -Continue escitalopram 20 mg daily -Continue Prn Ativan 0.5mg po #Rash on buttock - no signs of infection; suspect related to dry skin #Morbid Obesity w/ BMI 41 - BMI 41 w/ risk factors: Moderately severe NIKHIL, AML -Monitor Weight, I&O DVT prophylaxis-deferred due to severe pancytopenia Dispo: Continued stay but downgrade to medical/surgical unit. Need to arrange home IV antibiotics on Monday-Rx given for antibiotics for home therapy to housing case manager Admission and Anticipated Discharge Date Admission Date: March 09, 2025 Subjective Patient reports feeling very well today. She has no complaints and feels her appetite is improving. No bleeding from anywhere. She is anxious to get home but understands the IV antibiotics at home were not able to be arranged over the weekend. Telemetry with normal sinus rhythm with rates in the 70s to 80s Physical Exam Constitutional: WD/WN, vitals as above Respiratory: normal respiratory effort, lungs clear to auscultation Cardiovascular: RRR, no murmur, no edema Gastrointestinal (Abdomen): normal bowel sounds, soft, nontender, no hepatospl enomegaly Psychiatric: A+Ox3, euthymic affect Results & Data Results & Data Vital Signs (Past 12 Hours) Vital Signs Temp Pulse Pulse Resp BP BP BP 03/15/25 12:15 36.7 C 79 16 134/78 03/15/25 11:15 36.5 C 79 16 126/77 03/15/25 10:45 36.7 C 88 18 126/78 03/15/25 10:30 36.7 C 88 17 126/88 03/15/25 10:25 36.7 C 88 16 126/78 03/15/25 10:14 36.7 C 81 16 137/81 03/15/25 07:29 36.8 C 79 18 165/94 H 03/15/25 03:10 36.6 C 85 18 154/84 H Pulse Ox O2 Del Method 03/15/25 12:15 96 03/15/25 11:15 96 03/15/25 10:45 95 03/15/25 10:30 97 03/15/25 10:25 96 03/15/25 10:14 97 03/15/25 07:29 97 Room Air 03/15/25 03:10 96 Room Air Laboratory Results CBC, BMP, magnesium level, vancomycin trough, blood cultures reviewed PG Care Time/CCT Total # of Minutes Spent Total Time Spent with Patient: Total time spent is greater than 50% in coordination of care (as documented) at patient's floor/unit and/or counseling patient: Coding Level of Care Code 57236 SUB INP/OBS CARE 3/50MIN Diagnoses Antineoplastic chemotherapy induced pancytopenia D61.810; T45.1X5A AML (acute myeloblastic leukemia) C92.00 Bacteremia due to Streptococcus R78.81; B95.5 Hypokalemia E87.6
[2025-03-15] MEDS: POTASSIUM CHLORIDE CRTAB 20 MEQ TABCR PO ONE (20:13)
[2025-03-16 07:35] LABS: Hematocrit (blood only) 24.0 % (37.0-47.0); Hemoglobin 8.4 g/dl (12.0-16.0); Mean Corpuscular Hemoglobin 28.4 pg (25.0-34.0); Mean Corpuscular Volume 81.1 fL (80.0-100.0); Platelet Count 18 K/uL (130-400); RDW Standard Deviation 44.0 fL (36.4-46.3); Red Blood Count 2.96 M/uL (4.20-5.40); White Blood Count 0.10 K/ul (4.8-10.8)
[2025-03-16 07:37] LABS: Alanine Aminotransferase 9.0 U/L (7-52); Albumin Globulin Ratio 1.2 (0.9-2); Albumin Level 3.4 gm/dl (3.4-5.0); Alkaline Phosphatase 82.0 U/L (34-104); Anion Gap 5.0 (3-11); Bilirubin,Total 0.7 mg/dl (0.2-1.0); Blood Urea Nitrogen 7.0 mg/dl (6-23); Calcium 9.0 mg/dl (8.6-10.3); Carbon Dioxide 29.0 mmol/L (21-32); Chloride 109.0 mmol/L (98-107); Creatinine Clr Calc Pharmacy 142.9 ml/min; Globulin 2.8 gm/dl (2.5-4.0); Glucose 103.0 mg/dl (70-99(Fasting)); Magnesium 1.9 mg/dl (1.7-2.4); Potassium 3.6 mmol/L (3.5-5.1); Sodium 143.0 mmol/L (136-145); Total Protein 6.2 gm/dl (6.0-8.3)
[2025-03-16] MEDS ORDERED: SODIUM CHLORIDE 0.9% 100 ML IV PRN (07:49)
[2025-03-16] MEDS ORDERED: VANCOMYCIN LEVEL ONE (08:30)
--- NOTE | 2025-03-16 09:32 | Hospitalist Progress Note ---
Date of Service March 16, 2025 Assessment & Plan (1) Antineoplastic chemotherapy induced pancytopenia: (2) AML (acute myeloblastic leukemia): (3) Bacteremia due to Streptococcus: (4) Hypokalemia: Plan This patient is a 55-year-old female w/ a PMHx significant for antineoplastic c hemotherapy induced pancytopenia, AML on chemotherapy with PICC line in place, vitamin D deficiency, GERD w/out esophagitis, severe NIKHIL on CPAP, anxiety, and migraine who presents with fever, neutropenia, and myalgias. She is admitted with Streptococcus mitis and Neisseria flava bacteremia and antineoplastic induced pancytopenia. #Neutropenic fever/Strep mitis and Neisseria flava bacteremia - Most recent chemo 02/26; CXR neg, Resp Biofire negative, UA neg, with severe neutropenia and PICC line in place. Blood cultures from 03/09 growing Streptococcus mitis resistant to penicillin and ceftriaxone, as well as Neisseria flava. TTE negative for valvular vegetation. Repeat blood cultures on 03/10 and 03/11 both no growth to date. She is now afebrile and clinically improved. PICC line removed on 03/11. Appreciate infectious disease consultation. - Continue IV Ceftriaxone for Neisseria and IV Vanco for Streptococcus mitis- plan for 2 weeks of treatment with end date 03/27/2025 - Check once weekly CBC with differential, CMP, vancomycin trough with goal level 15-17 while on antibiotics-Ensure labs are faxed to the ID office - New PICC line placed on 03/14 - Neutropenic precautions - Acetaminophen prn for pain/fever -At this time, no follow-up with infectious disease is recommended, but the labs will be reviewed by infectious disease ongoing after discharge. ID recommends calling them if any vancomycin dose adjustment is needed prior to discharge based on pharmacy recommendations #Antineoplastic induced pancytopenia/AML-Consult Oncology appreciated-plan is to hold chemotherapy and repeat bone marrow biopsy if cytopenias persist. She has plans for stem cell transplant in April 2025 at [facility]. Continues to require daily transfusions of PRBCs and platelets during this admission. She had mucositis with melena during this admission which is now resolved - Continue to transfuse for Hgb below 7.5 and platelets below 20,000 - additional unit of platelets ordered 03/16 for plt 18 - Follow CBC daily - Continue chronic suppressive therapy: levofloxacin, posaconazole, and acyclovir - Continue zofran and Compazine as needed for nausea - Patient requires IV Benadryl and Tylenol prior to transfusions - Follow-up with oncology as an outpatient-she has lab appointments on Monday and can get same-day transfusions in the cancer center #GI bleed/GERD-patient had dark stools starting on 03/11-seen by GI and thought to be mucositis in the setting of thrombocytopenia. Started on IV Protonix drip and now transition to oral Protonix. Dark stools have resolved. No endoscopy recommended per GI due to severe thrombocytopenia. -Continue Protonix 40 mg p.o. twice daily - will need rx at discharge #Hypomagnesemia/hypokalemia-Mag and K have recovered with replacement - Follow BMP and magnesium in the a.m. #HTN - no acute concerns, BPs are controlled -Continue Lisinopril 10mg daily #Moderately severe NIKHIL -no acute issues -Continue CPAP HS #Anxiety - Pt notes extreme anxiety about GI bleed w/ low platelets -Continue escitalopram 20 mg daily -Continue Prn Ativan 0.5mg po #Rash on buttock - no signs of infection; suspect related to dry skin #Morbid Obesity w/ BMI 41 - BMI 41 w/ risk factors: Moderately severe NIKHIL, AML -Monitor Weight, I&O DVT prophylaxis-deferred due to severe pancytopenia Dispo: Continued stay, platelets today. Need to arrange home IV antibiotics on Monday-Rx given for antibiotics for home therapy to immigration case worker Admission and Anticipated Discharge Date Admission Date: March 09, 2025 Subjective Patient seen lying in bed, reports feeling better. Good appetite - ate 100% of her breakfast. No further dark bowel mobements. Tolerating antibiotics without issue - aware home antibiotics have not been arranged. Review of Systems Review of Systems: All systems reviewed & are unremarkable except as noted in Subjective Physical Exam Physical Exam: General: NAD, VS as above Resp: normal respiratory effort, lungs clear to auscultation anteriorly CV: RRR, no murmur, Abd: normal bowel sounds, non tender, soft Extremities: Moves all extremities, Neuro: A&O x3, Results & Data Results & Data Vital Signs (Past 12 Hours) Vital Signs Temp Pulse Pulse Resp BP Pulse Ox O2 Del Method 03/16/25 08:12 98.1 F 75 16 144/80 H 96 Room Air 03/15/25 22:10 76 Laboratory Results cbc reviewed BMP reviewed PG Care Time/CCT Total # of Minutes Spent Total Time Spent with Patient: Total time spent is greater than 50% in coordination of care (as documented) at patient's floor/unit and/or counseling patient: Coding Level of Care Code 38398 SUB INP/OBS CARE 3/50MIN Diagnoses Antineoplastic chemotherapy induced pancytopenia D61.810; T45.1X5A AML (acute myeloblastic leukemia) C92.00 Bacteremia due to Streptococcus R78.81; B95.5 Hypokalemia E87.6
[2025-03-17 07:05] LABS: Anion Gap 6.0 (3-11); Blood Urea Nitrogen 7.0 mg/dl (6-23); Calcium 9.0 mg/dl (8.6-10.3); Carbon Dioxide 29.0 mmol/L (21-32); Chloride 107.0 mmol/L (98-107); Creatinine Clr Calc Pharmacy 129.6 ml/min; Glucose 103.0 mg/dl (70-99(Fasting)); Magnesium 1.8 mg/dl (1.7-2.4); Potassium 3.2 mmol/L (3.5-5.1); Sodium 142.0 mmol/L (136-145)
[2025-03-17 07:16] LABS: Hematocrit (blood only) 23.0 % (37.0-47.0); Hemoglobin 7.9 g/dl (12.0-16.0); Mean Corpuscular Hemoglobin 27.8 pg (25.0-34.0); Mean Corpuscular Volume 81.0 fL (80.0-100.0); Platelet Count 18 K/uL (130-400); RDW Standard Deviation 41.8 fL (36.4-46.3); Red Blood Count 2.84 M/uL (4.20-5.40); White Blood Count 0.10 K/ul (4.8-10.8)
--- NOTE | 2025-03-17 09:40 | Pharmacy Report ---
Pharmacy PK ABX Note - Date of Service March 17, 2025 - Assessment and Plan Assessment 03/17: * Vanco level this morning was 14.1mcg/mL which extrapolates to an AUC in the goal range. She is to remain on current maintenance dose of vancomycin. * Renal function remains stable and at baseline * Repeat blood cultures from 03/10 and 03/11 finalized as no growth. 03/15: * Random vancomycin level this AM was 10.6 mcg/ml, prior to 2nd dose of new regimen-- associated with AUC/BUCK 548 mg/L.hr at steady state. Will continue with current dose. Strep mitis sensitive to vancomycin. Current plan for ceftriaxone/vancomycin through 03/27/25. 03/14: * Random vancomycin level this AM was ~10 mcg/ml - current regimen associated with AUC/BUCK ~440, will increase dosing to target upper end of goal range for AUC/BUCK d/t bacteremia. Will increase to 1750 mg iv q 12 hours. Awaiting further sensitivities. 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 She is pancytopenic and also on chronic suppressive therapy with acyclovir, posaconazole (non-formulary), and Levaquin. * Pertinent microbiologic data includes: blood cultures x 2 (03/09) growing Streptococcus mitis/oralis group and 1 of 2 growing Neisseria flavescens /subflava group. Repeat blood cultures (03/10, 03/11 show no growth). * Patient was previously receiving ceftriaxone monotherapy. Vancomycin added today due to resistance to ceftriaxone shown on Streptococcus mitis in blood culture. TTE unremarkable. Plan Vancomycin * Vancomycin level drawn this morning was 14.1mcg/mL which extrapolates to an AUC of 542mg/L.hr. * Continue 1750 mg iv q 12 hours * Another vanco level will be ordered in the next few days if she is still admitted. Ceftriaxone 2gm iv q 24 hours. Pharmacy will continue to follow and will adjust dose/frequency as necessary. Thank you. Pharmacy has transitioned to AUC monitoring for vancomycin. AUC/BUCK is the preferred PK/PD target and is associated with decreased risk of nephrotoxicity compared to traditional trough targets.
[2025-03-17] MEDS ORDERED: SODIUM CHLORIDE 0.9% 100 ML IV PRN (10:33)
--- NOTE | 2025-03-17 10:34 | Hospitalist Progress Note ---
Date of Service March 17, 2025 Assessment & Plan (1) Antineoplastic chemotherapy induced pancytopenia: (2) AML (acute myeloblastic leukemia): (3) Bacteremia due to Streptococcus: (4) Hypokalemia: Plan This patient is a 55-year-old female w/ a PMHx significant for antineoplastic chemotherapy induced pancytopenia, AML on chemotherapy with PICC line in place, vitamin D deficiency, GERD w/out esophagitis, severe NIKHIL on CPAP, anxiety, and migraine who presents with fever, neutropenia, and myalgias. She is admitted with Streptococcus mitis and Neisseria flava bacteremia and antineoplastic induced pancytopenia. #Neutropenic fever/Strep mitis and Neisseria flava bacteremia - Most recent chemo 02/26; CXR neg, Resp Biofire negative, UA neg, with severe neutropenia and PICC line in place. Blood cultures from 03/09 growing Streptococcus mitis resistant to penicillin and ceftriaxone, as well as Neisseria flava. TTE negative for valvular vegetation. Repeat blood cultures on 03/10 and 03/11 both no growth to date. She is now afebrile and clinically improved. PICC line removed on 03/11. Appreciate infectious disease consultation. - Continue IV Ceftriaxone for Neisseria and IV Vanco for Streptococcus mitis- plan for 2 weeks of treatment with end date 03/27/2025 - Check once weekly CBC with differential, CMP, vancomycin trough with goal level 15-17 while on antibiotics-Ensure labs are faxed to the ID office - New PICC line placed on 03/14 - Neutropenic precautions - Acetaminophen prn for pain/fever -At this time, no follow-up with infectious disease is recommended, but the labs will be reviewed by infectious disease ongoing after discharge. ID recommends calling them if any vancomycin dose adjustment is needed prior to discharge based on pharmacy recommendations #Antineoplastic induced pancytopenia/AML-Consult Oncology appreciated-plan is to hold chemotherapy and repeat bone marrow biopsy if cytopenias persist. She has plans for stem cell transplant in April [address] [facility]. Continues to require daily transfusions of PRBCs and platelets during this admission. She had mucositis with melena during this admission which is now resolved - Continue to transfuse for Hgb below 7.5 and platelets below 20,000 - additional unit of platelets ordered 03/16 for plt 18 - Follow CBC daily - Continue chronic suppressive therapy: levofloxacin, posaconazole, and acyclovir - Continue zofran and Compazine as needed for nausea - Patient requires IV Benadryl and Tylenol prior to transfusions - Follow-up with oncology as an outpatient-she has lab appointments on Monday and can get same-day transfusions in the cancer center #GI bleed/GERD-patient had dark stools starting on 03/11-seen by GI and thought to be mucositis in the setting of thrombocytopenia. Started on IV Protonix drip and now transition to oral Protonix. Dark stools have resolved. No endoscopy recommended per GI due to severe thrombocytopenia. -Continue Protonix 40 mg p.o. twice daily - will need rx at discharge #Hypomagnesemia/hypokalemia-Mag and K have recovered with replacement - Follow BMP and magnesium in the a.m. #HTN - no acute concerns, BPs are controlled -Continue Lisinopril 10mg daily #Moderately severe NIKHIL -no acute issues -Continue CPAP HS #Anxiety - Pt notes extreme anxiety about GI bleed w/ low platelets -Continue escitalopram 20 mg daily -Continue Prn Ativan 0.5mg po #Rash on buttock - no signs of infection; suspect related to dry skin #Morbid Obesity w/ BMI 41 - BMI 41 w/ risk factors: Moderately severe NIKHIL, AML -Monitor Weight, I&O DVT prophylaxis-deferred due to severe pancytopenia Dispo: Continued stay, platelets today. Need to arrange home IV antibiotics on Monday-Rx given for antibiotics for home therapy to trimming caser Admission and Anticipated Discharge Date Admission Date: March 09, 2025 Physical Exam Physical Exam: General: Pt is a 55 y/o morbidly obese F in NAD in bed. VS: reviewed - remarkable Skin: PICC line; skin otherwise warm and dry; no lesions or ulcerations Respiratory: CTA bilat, no adventitious sounds noted. Chest expansion is full and symmetrical Cardio: RRR, mild murmur Abdomen: Round, normoactive BS x4, nontender to palpation MSK: FROM of extremities, no deformities Extremities: no edema Neuro: A&Ox4, cooperative Results & Data Results & Data Vital Signs (Past 12 Hours) Vital Signs Temp Pulse Resp BP Pulse Ox O2 Del Method 03/17/25 08:20 98.2 F 71 20 149/84 H 96 Room Air PG Care Time/CCT Total # of Minutes Spent Total Time Spent with Patient: Total time spent is greater than 50% in coordination of care (as documented) at patient's floor/unit and/or counseling patient: Coding Diagnoses Antineoplastic chemotherapy induced pancytopenia D61.810; T45.1X5A AML (acute myeloblastic leukemia) C92.00 Bacteremia due to Streptococcus R78.81; B95.5 Hypokalemia E87.6
[2025-03-17] MEDS: diphenhydrAMINE Capsule 25 MG CAP PO ONE (11:12)
[2025-03-17] MEDS: ACETAMINOPHEN 325 MG TAB PO ONE (11:12)
[2025-03-17] MEDS: POTASSIUM CHLORIDE CRTAB 20 MEQ TABCR PO STA (11:12)
--- NOTE | 2025-03-17 14:49 | Discharge Summary ---
"Discharge Summary Date of Service March 17, 2025 Principal Dx & Hospital Course #1 = Principal Diagnosis (1) Antineoplastic chemotherapy induced pancytopenia: (2) AML (acute myeloblastic leukemia): (3) Bacteremia due to Streptococcus: (4) Hypokalemia: Plan #Neutropenic fever/Strep mitis and Neisseria flava bacteremia - Pt is a 55y/o female w/ a PMHx significant for antineoplastic chemotherapy induced pancytop enia, AML on chemotherapy with PICC line in place, vitamin D deficiency, GERD w/out esophagitis, severe NIKHIL on CPAP, anxiety, and migraine who presents with fever, neutropenia, and myalgias. She was admitted w/ Streptococcus mitis and Neisseria flava bacteremia & antineoplastic induced pancytopenia. While pt was in the ED, she recieved a CXR that was negative for any changes, a negative biofire, and a negative UA. A blood culture performed on 03/09 was positive for Strep mitis and neisseria flava. Pt was initially on IV ceftriaxone but had IV vancomycin added d/t S.Mitis being resistant to PCN + Ceftriaxone. A TTE was performed on 03/10 and was negative for any valvular vegetation growth. PICC line was removed on 03/11 d/t bacteremia. Repeat blood cultures on 03/10 and 03/11 were both negative. A new PICC line was placed on 03/14. Infectious disease was consulted during the inpt stay and recommended that the patinet continue the IV abx for 2 wks starting the date that the initial PICC line was removed. Labs to include CBC, CMP, and Vanc trough to be reviewed by infectious disease following discharge - it's important to ensure these labs are faxed to the ID office. Pt may be switched to IV daptomycin on an outpatient basis; this was not recommended during the inpatient stay d/t no sensitivity culture being performed. Infectious Disease information: Please fax to Estelle Gil, Infectious Disease F) [phone] (P) [phone] Clinic address: [address] [place] [id number] #Antineoplastic induced pancytopenia/AML - While patient was in the hospital, Oncology recommended holding chemotherapy treatment. While pt was in the hospital, she had severe persistent pancytopenia which required daily carey sfusions. While admitted, she received a total of 9 units of pRBCs and 11 units of platelets. She is currently scheduled for a stem cell transplant in April 2025 at [facility]. Pt to continue chronic suppressive therapy: levofloxacin, posaconazole, and acyclovir. Follow-up with oncology as an outpatient-she has lab appointments on MWF with [facility] - they are able to do transfusions here on a PRN basis. #GI bleed/GERD - While pt was admitted, she had an episode of Dark stools with a positive FOBT on 03/12. GI was consulted and believed it to be a mucositis in the setting of thrombocytopenia. No endoscopy was recommended per GI. They initiated IV protonix during inpt stay. Dark stools resolved during stay. Pt d/c home with Pantoprazole 40mg BID. #Hypomagnesemia/hypokalemia - Pt had depleted Mag and K while admitted and recovered with replacement therapy. #HTN - No concerns throughout duration of stay, pt to continue Lisinopril 10mg QAM as rx by PCP. #Moderately severe NIKHIL - No concerns throughout duration of inpatient stay, pt to continue the use of CPAP HS at home. #Anxiety - Pt did experience some anxiety about her low platelet count and the relation of that to episodes of bleeding during her inpatient say; this resolved with the resolution of her dark stools. Pt to continue escitalopram 20 mg daily and Ativan 0.5mg po prn #Rash on buttock - no signs of infection; suspect related to dry skin #Morbid Obesity w/ BMI 41 - Pt has a high BMI w/ risk factors of mod-severe NIKHIL, AML. Recommended weight loss. Dispo: Home self-care; [facility] will be delivering IV abx with IV administration appointment 03/17 at 20:00 at time of next Vancomycin dose. Notes For Next Care Provider Infectious Disease information: Please fax to Estelle Gil, Infectious Disease (F) [phone] (P) [phone] Clinic address: [address] [place] [id number] Please fax outpatient labs to the above fax number. Admission HPI Per Admitting Provider The patient is a 54-year-old female with a past medical history including antineoplastic chemotherapy induced pancytopenia, neutropenic fever, AML, vitamin D deficiency, history of MDS, GERD without esophagitis, severe NIKHIL on CPAP, anxiety, and migraine. For her AML, she underwent underwent induction and then IV and oral chemotherapy, with last treatment on 02/26/2025. Her counts have been stable but persistently low. Today she started to feel sore all over, and had some intermittent nausea. She checked a temperature it was 100.3 F. She presents to the emergency department for assessment of neutropenic fever. Chest x-ray was negative, respiratory bio fire test negative, urinalysis negative. Emergency department spoke with her oncologist Dr. Hyman, who recommended admission and treatment for neutropenic fever. The patient was then referred for evaluation [facility]. Discharge Exam General: Pt is a 55 y/o morbidly obese F in NAD in bed. VS: reviewed - remarkable Skin: PICC line placed in right upper arm; skin otherwise warm and dry; no lesions or ulcerations Respiratory: CTA bilat, no adventitious sounds noted. Chest expansion is full and symmetrical Cardio: RRR, mild murmur Abdomen: Round, normoactive BS x4, nontender to palpation MSK: FROM of extremities, no deformities Extremities: no edema Neuro: A&Ox4, cooperative Discharge Plan Discharge Items Patient Disposition: Home - Self-Care Reason For Visit: NEUTROPENIC FEVER Discharge Diagnosis: Neutropenic Fever | Bactaremia Condition on Discharge: Fair Activity: Resume your previous activity Non-emergency contact: Primary Care Provider and Oncologist Call non-emergency contact if: you have any medication questions, your symptoms worsen and you have a fever Follow-up/Referrals: Kina Garcia DO [Primary Care Provider] - 03/24/25 1:30 pm (APPT. WITH Frances GARCIA PA-C schedule appointment within 1 wk) Kae Hyman MD [Physician] - (Attend appointments as scheduled) Diet: Regular Addtl Attending Provider Instructions: You were admitted to the hospital for Neutropenic fever & Bacteremia (blood infection). While you were in the hospital, you received a blood culture on 03/09 that was positive for 2 bacteria: Streptococcus mitis as well as Neisseria flava. Of these two bacteria, the Streptococcus was resistant to the IV ceftriaxone you were receiving and IV vancomycin was added to you antibiotic regimen at the recommendation of Infectious disease. An echocardiogram was performed on 03/10 and was negative for the growth of any vegetation, further results will be attached to your discharge summary so that you may review them. As a result of the positive blood culture, the PICC line you came in with was removed on 03/11. Two additional blood cultures were ordered on 03/10 + 03/11 and demonstrated no bacterial growth. As a result, a new PICC line was placed so that you may continue IV abx for a complete 2 week course at the recommendation of infectious disease. Following your discharge, you should have a virtual appointment scheduled for this evening at 8 pm when your next dose of IV vancomycin is due to demonstrate how to administer your antibiotics via you PICC line. Dr Hyman, your oncologist was consulted during your inpatient stay due to your pancytopenia secondary to AML. While you were admitted, your hemoglobin and pl atelets were regularly low and required replacement. You received a total of 8 bags of packed red blood cells and 11 bags of platelets. On your first day of transfusions, you had a transfusion reaction during the administration of the second bag of red blood cells. Following this, you were provided with both Tylenol and Benadryl prior to your transfusions. Dr Hyman will be following your blood-counts after discharge and you should maintain the appointments that have been scheduled. Your next [facility] appointment is this Monday with the following blood tests ordered: CBC, CMP, Vancomycin trough. Please follow-up with your appointments as scheduled. The results of your labs should be faxed to Estelle Walker at [phone]. Clinic address [address] [place] [address]. (P) [phone] While you were admitted to the hospital, you experienced some dark stools. A fecal-occult blood test was performed and was positive for blood in the stools. A Gastroenterology consult was placed and your were transitioned from PO pantoprazole to IV pantoprazole. GI believes this was a result of the severe thrombocytopenia (low platelets) that you had during your admission to the hospital. You should continue taking Pantoprazole 40mg BID upon discharge from the hospital. Medications: Your medication list has been reviewed and reconciled upon discharge to ensure accuracy and continuity of care. An updated list of all your medications is included with your hospital discharge paperwork. Please review this list closely, and make note of any changes. We sent a new medication called Vancomycin to your home. Please administer this every 12 hours via PICC as instructed in your virtual appointment. Start this tonight at 8p.m. This is an antibiotic to help with your bacteremia. We sent a new medication called Ceftriaxone to your home. Please administer every morning via PICC as instructed in your virtual appointment. Start this tomorrow AM. This is an antibiotic to help with your bacteremia. We sent a new medication called Pantoprazole to your pharmacy. Please take this medication twice a day. Start this medication this evening. This is a medication to help reduce acid production in your stomach. Take your medications as instructed; do not skip a dose of your medicines. Make sure all of your doctors know every medicine you are taking (including pqhe-cgl-dfmeodq medicines, vitamins, and supplements). Call your primary care provider before taking any new medicines (including over- the-counter medicines, vitamins, and supplements), because some of these may interact with your current medications, or may make your symptoms worse. Tell your primary care provider if you cannot afford your medications. Activity: You can do normal everyday activities as your body allows. Take rest breaks if you feel tired. Do not overexert. Stop activity if you have pain, shortness of breath or feel dizzy. Follow-up appointments: Make an appointment with your primary care physician within one week of discharge. A copy of this summary will be sent to them. Every time you see your primary care physician, or any other doctor, bring your medication list, and a list of questions. CONTACT YOUR PRIMARY CARE PROVIDER if you experience any of the following: Shortness of breath or difficulty breathing Fevers or chills Feeling tired with normal activity or experiencing dizziness or fainting Difficulty following your treatment plan, or difficulty taking medications CALL 911 OR GO TO THE EMERGENCY DEPARTMENT if you experience any of the following: Severe abdominal pain or nausea/vomiting Severe chest pain, or chest pain that radiates (moves) to your jaw or arm Sudden, severe shortness of breath or difficulty breathing Thank you for allowing us to participate in your care. Pending Studies at Discharge: Yes Studies:: CBC, CMP, Vancomycin Trough ordered for outpt management Stand-Alone Forms: My [employer], Smoking Cessation Medications and DC Order Prescriptions: New pantoprazole 40 mg Tablet,Delayed Release (Dr/Ec) 40 mg PO BID Qty: 60 0RF Continued escitalopram oxalate [Lexapro] 20 mg tablet 20 mg PO QAM Qty: 30 0RF (DME) Auto Titrating CPAP Misc See Rx Instructions .Route Qty: 1 0RF Rx Instructions: As directed acyclovir 400 mg tablet 400 mg PO AMPM potassium chloride 20 mEq tablet extended release 20 meq PO QAM ondansetron HCl 8 mg tablet 8 mg PO UD PRN (Reason: Nausea And Vomiting) levofloxacin 500 mg tablet 500 mg PO QPM posaconazole 100 mg tablet,delayed release (DR/EC) 300 mg PO QDL Rx Instructions: WITH FOOD Discontinued omeprazole 20 mg capsule,delayed release(DR/EC) 20 mg PO DAILYBB Discharge Orders: Discharge Order (Routine); Ordered 03/17/25 Ordered By: Rosangela Haney Admission Data Admit Date/Time: 03/09/25 22:14 Attending Provider: Ketan Ackerman Admit Provider: John Nolen Primary Care Provider: Kina Garcia Other Providers: John Nolen; Kae Hyman; Ho Mcgee I Other Interventions: Discharge Summary Assessment (RN) Last Done: 03/17/25 16:50 Hospital Stay Data Consultations 03/09/25 20:59 ED Decision to Admit Stat 03/10/25 01:00 Consult Hematology Routine 03/10/25 11:04 Consult Infectious Diseases Routine 03/12/25 09:10 Consult Gastroenterology Routine Diagnostic Imagining Performed Chest X-Ray 03/09/25 18:54 EXAM: Radiograph of the Chest 1 View INDICATION: Sepsis TECHNIQUE: Frontal view of the chest. COMPARISON: 01/02/2025 FINDINGS: Lungs and pleural spaces: No consolidation or pulmonary edema. No pleural effusion or pneumothorax. Heart: Shape and configuration within normal limits allowing for technique. Mediastinum: Normal contour. Bones/joints: No fracture, erosion or dislocation. Soft tissues: No abnormality noted. No radiopaque foreign body noted. Tubes, lines and devices: Right peripherally inserted central catheter (PICC) tip in the mid superior vena cava. Upper abdomen: No abnormality noted. IMPRESSION: 1. No acute cardiopulmonary disease. 2. Lines and tubes as above. ACT 112: N/A Electronically signed by Robyn Hart 03-09-2025 7:14 PM Pending Results Patient Have Any Pending Studies at Discharge: Yes Discharge Instructions Given to Patient (Per Discharging Provider) You were admitted to the hospital for Neutropenic fever & Bacteremia (blood infection). While you were in the hospital, you received a blood culture on 03/09 that was positive for 2 bacteria: Streptococcus mitis as well as Neisseria flava. Of these two bacteria, the Streptococcus was resistant to the IV ceftriaxone you were receiving and IV vancomycin was added to you antibiotic regimen at the recommendation of Infectious disease. An echocardiogram was performed on 03/10 and was negative for the growth of any vegetation, further results will be attached to your discharge summary so that you may review them. As a result of the positive blood culture, the PICC line you came in with was removed on 03/11. Two additional blood cultures were ordered on 03/10 + 03/11 and demonstrated no bacterial growth. As a result, a new PICC line was placed so that you may continue IV abx for a complete 2 week course at the recommendation of infectious disease. Following your discharge, you should have a virtual appointment scheduled for this evening at 8 pm when your next dose of IV vancomycin is due to demonstrate how to administer your antibiotics via you PICC line. Dr Hyman, your oncologist was consulted during your inpatient stay due to your pancytopenia secondary to AML. While you were admitted, your hemoglobin and platelets were regularly low and required replacement. You received a total of 8 bags of packed red blood cells and 11 bags of platelets. On your first day of transfusions, you had a transfusion reaction during the administration of the second bag of red blood cells. Following this, you were provided with both Tylenol and Benadryl prior to your transfusions. Dr Hyman will be following your blood-counts after discharge and you should maintain the appointments that have been scheduled. Your next [facility] appointment is this Monday with the following blood tests ordered: CBC, CMP, Vancomycin trough. Please follow-up with your appointments as scheduled. The results of your labs should be faxed to [facility] at [phone]. Clinic address [address] [place] [address], [place] [address]. (P) [phone] While you were admitted to the hospital, you experienced some dark stools. A fecal-occult blood test was performed and was positive for blood in the stools. A Gastroenterology consult was placed and your were transitioned from PO pantoprazole to IV pantoprazole. GI believes this was a result of the severe thrombocytopenia (low platelets) that you had during your admission to the hospital. You should continue taking Pantoprazole 40mg BID upon discharge from the hospital. Medications: Your medication list has been reviewed and reconciled upon discharge to ensure accuracy and continuity of care. An updated list of all your medications is included with your hospital discharge paperwork. Please review this list closely, and make note of any changes. We sent a new medication called Vancomycin to your home. Please administer this every 12 hours via PICC as instructed in your virtual appointment. Start this tonight at 8p.m. This is an antibiotic to help with your bacteremia. We sent a new medication called Ceftriaxone to your home. Please administer every morning via PICC as instructed in your virtual appointment. Start this tomorrow AM. This is an antibiotic to help with your bacteremia. We sent a new medication called Pantoprazole to your pharmacy. Please take this medication twice a day. Start this medication this evening. This is a medication to help reduce acid production in your stomach. Take your medications as instructed; do not skip a dose of your medicines. Make sure all of your doctors know every medicine you are taking (including ytyp-hfn-aynjtvh medicines, vitamins, and supplements). Call your primary care provider before taking any new medicines (including over- the-counter medicines, vitamins, and supplements), because some of these may interact with your current medications, or may make your symptoms worse. Tell your primary care provider if you cannot afford your medications. Activity: You can do normal everyday activities as your body allows. Take rest breaks if you feel tired. Do not overexert. Stop activity if you have pain, shortness of breath or feel dizzy. Follow-up appointments: Make an appointment with your primary care physician within one week of discharge. A copy of this summary will be sent to them. Every time you see your primary care physician, or any other doctor, bring your medication list, and a list of questions. CONTACT YOUR PRIMARY CARE PROVIDER if you experience any of the following: Shortness of breath or difficulty breathing Fevers or chills Feeling tired with normal activity or experiencing dizziness or fainting Difficulty following your treatment plan, or difficulty taking medications CALL 911 OR GO TO THE EMERGENCY DEPARTMENT if you experience any of the following: Severe abdominal pain or nausea/vomiting Severe chest pain, or chest pain that radiates (moves) to your jaw or arm Sudden, severe shortness of breath or difficulty breathing Thank you for allowing us to participate in your care. Total Time Total Time Spent Total Time Spent (In Minutes): Time spent day of discharge 120 minutes including direct patient care, medication reconciliation, documentation, review of labs and images, and coordination of care. Coding Level of Care Code 31094 INP/OBS DISCH >30 MIN Diagnoses Antineoplastic chemotherapy induced pancytopenia D61.810; T45.1X5A AML (acute myeloblastic leukemia) C92.00 Bacteremia due to Streptococcus R78.81; B95.5 Hypokalemia E87.6"
[2025-03-17 14:59] VITALS: PULSE 80; RESP 20; TEMP 97.7; O2SAT 96
[2025-03-17 16:51] VITALS: BP 134/81
[2025-03-18] MEDS ORDERED: DAPTOmycin 600 MG in SYRINGE 0 ML IV SCH (09:00)
== END 2025-03-17 17:11 | disposition home or self-care (01) | DRG 834 ==
LOC: ED 17:32 → 2W 22:14 → SUATTDRO 22:14 → 2W 03-10 00:21